=== PATIENT | male | born 1945 | race African-American/Black ===

== ENCOUNTER 2023-04-06 14:31 | Outpatient (AMB) | payer MEDICARE, MEDICAID, SELFPAY ==
[2023-04-06 14:55] VITALS: BP 122/64; PULSE 61; O2SAT 100; BMI 31.1
--- NOTE | 2023-04-06 14:55 | HO.NEPHOV_ITS ---
HPI HPI Comments History of Present Illness Details 77 yo gentleman with complex medical iss ues including CAD s/p CABG with bioprosthetic mitral valve replacement, dilated cardiomyopathy with EF of 30 to 35% s/p AICD in place, CKD 3 B, Graves' disease, COPD, previous MCA stroke with left-sided deficits, who had a prolonged hospitalization last year for bilateral angioplasty and left external iliac stent placement and right lower extremity fasciotomy with wound injury. He also had COVID and severe sepsis 2/2 UTI, and found to have COVID. He also required OR cystoscopy and catheter replacement, due to obstruction by blood clots on 08/15/22 & hematuria was resolved prior to discharge to rehab. He required multiple units of PRBC over the course of time. He was put on hospice as per the and was transferred out of the retirement. She is thinking of transitioning him back out of hospice. He recently has seen Dr. Henderson who found him to be profoundly anemic and sent him to the hospital for blood transfusion as per the . He has not had any renal function blood work done recently. He is eating better and has gained some weight. He has been having edema on the dorsum of both feet right more than left. He has a healing wound over the right lateral malleolus. He denies nausea, vomiting, fever, chills, diarrhea, shortness of breath, paroxysmal nocturnal dyspnea or orthopnea. He does not take any nonsteroidal anti- inflammatory use and is compliant with medications. He can barely pivot out to chair from his bed with support. His is doing the very best to help him improve out of his current clinical status. [facility] Medical History (Updated 04/07/23 @ 13:59 by Jonathan Isidro MD) MGUS (monoclonal gammopathy of unknown significance) Iron deficiency Anemia Hyperuricemia Hypertension CKD (chronic kidney disease), stage III Surgical History (Updated 04/06/23 @ 14:55 by Greta Vences MA) History of surgery on lower extremity Social History (Updated 04/06/23 @ 14:54 by Greta Vences MA) Alcohol intake: current Comment: Occasional Patient Tobacco Use Status: Former Tobacco user Vital Signs 04/06/23 14:55 Height 5 ft 4 in Weight 181 lb BMI 31.1 BP 122/64 Blood Pressure Location Rt brachial Position Sitting Pulse 61 Pulse Source Pulse Oximeter Pulse Oximetry (%) 100 Oxygen Delivery Method Room Air Physical Exam Vital Signs: Last Vital Signs Pulse 61 04/06/23 14:55 BP 122/64 04/06/23 14:55 Pulse Ox 100 04/06/23 14:55 Oxygen Delivery Method Room Air 04/06/23 14:55 BMI result Body Mass Index 31.1 Const General: no acute distress HEENT Head: Yes normocephalic Mouth: moist mucous membranes Eyes EOM: EOMs intact bilaterally Neck Neck: Yes supple Resp Auscultation: diminished lung sounds Cardio Rate: regular rate GI Palpation (GI): Soft to palpation Neuro General: moves all extremities Extrem General: Yes edema Assessment & Plan Assessment & Plan (1) CKD (chronic kidney disease), stage III: Code(s): N18.30 - Chronic kidney disease, stage 3 unspecified Qualifiers: Chronic kidney disease stage 3 subtype: stage 3b (GFR 30-44) Qualified Code(s): N18.32 - Chronic kidney disease, stage 3b (2) Anemia in chronic kidney disease: Code(s): N18.9 - Chronic kidney disease, unspecified; D63.1 - Anemia in chronic kidney disease Qualifiers: Chronic kidney disease stage: stage 3 (moderate) Chronic kidney disease stage 3 subtype: stage 3b (GFR 30-44) Qualified Code(s): N18.32 - Chronic kidney disease, stage 3b; D63.1 - Anemia in chronic kidney disease (3) Hypertension: Code(s): I10 - Essential (primary) hypertension Qualifiers: Hypertension type: primary hypertension Qualified Code(s): I10 - Essential (primary) hypertension (4) Hyperuricemia: Code(s): E79.0 - Hyperuricemia without signs of inflammatory arthritis and tophaceous disease Plan Carlos is known to have chronic kidney disease stage IIIB at baseline. He had multiple AKIs during his multiple prolonged hospitalizations last year. He has not had any recent blood work. He has not clinically in heart failure but has some edema on the dorsum of both feet right more than the left. Patient nor the knew about the dose and list of his current medications at the time of the office visit. She is made to contact me with the same. He has been getting recurrent transfusions and may be a candidate for Procrit injections. I ordered blood work to determine further strategies to maintain his kidney function, provide optimal diuresis and avoid more transfusions if possible. He needs to follow-up closely with the rest of his physicians if he is intending to come out of hospice program. All these have been discussed in extensive detail. I gave him the opportunity to ask questions which I answered to their satisfaction. Follow-up given. Orders: Orders Electrolytes 04/06/23 D63.1 - Anemia in chronic kidney disease, N18.30 - Chronic kidney disease, stage 3 unspecified, N18.9 - Chronic kidney disease, unspecified Blood Urea Nitrogen 04/06/23 D63.1 - Anemia in chronic kidney disease, N18.30 - Chronic kidney disease, stage 3 unspecified, N18.9 - Chronic kidney disease, unspecified Creatinine 04/06/23 D63.1 - Anemia in chronic kidney disease, N18.30 - Chronic kidney disease, stage 3 unspecified, N18.9 - Chronic kidney disease, unspecified IRON PROFILE 04/06/23 D63.1 - Anemia in chronic kidney disease, N18.30 - Chronic kidney disease, stage 3 unspecified, N18.9 - Chronic kidney disease, unspecified Ferritin 04/06/23 D63.1 - Anemia in chronic kidney disease, N18.30 - Chronic kidney disease, stage 3 unspecified, N18.9 - Chronic kidney disease, unspecified Calcium 04/06/23 D63.1 - Anemia in chronic kidney disease, N18.30 - Chronic kidney disease, stage 3 unspecified, N18.9 - Chronic kidney disease, unspecified Complete Blood Count Auto Diff 04/06/23 D63.1 - Anemia in chronic kidney disease, N18.30 - Chronic kidney disease, stage 3 unspecified, N18.9 - Chronic kidney disease, unspecified Coding Level of Care Code Est Pt Level 4 (68332) Diagnoses Stage 3b chronic kidney disease N18.32 Chronic kidney disease stage 3 subtype: stage 3b (GFR 30-44) Anemia in stage 3b chronic kidney disease N18.32; D63.1 Chronic kidney disease stage: stage 3 (moderate) Chronic kidney disease stage 3 subtype: stage 3b (GFR 30-44) Primary hypertension I10 Hypertension type: primary hypertension Hyperuricemia E79.0 Results Reviewed Nephrology Results: No Data to Display
== END 2023-04-06 15:45 | disposition home or self-care (01) ==
PROVIDERS: Visit Provider Internal Medicine Nephrology
DX: N18.32 Chronic kidney disease, stage 3b (principal); D63.1 Anemia in chronic kidney disease; I10 Essential (primary) hypertension; E79.0 Hyperuricemia without signs of inflammatory arthritis and tophaceous disease
CPT/HCPCS: 99214

== ENCOUNTER → 2023-04-06 14:31 | Outpatient (BNVA) | payer OTHER, MEDICAID, SELFPAY | PROVIDERS: Visit Provider Internal Medicine Nephrology | DX: I12.9 Hypertensive chronic kidney disease with stage 1 through stage 4 chronic kidney disease, or unspecified chronic kidney disease (principal); N18.32 Chronic kidney disease, stage 3b; D63.1 Anemia in chronic kidney disease; E79.0 Hyperuricemia without signs of inflammatory arthritis and tophaceous disease | CPT/HCPCS: 99212 ==

== ENCOUNTER 2023-05-11 14:03 | Outpatient (AMB) | payer MEDICARE, MEDICAID, SELFPAY ==
[2023-05-11 14:18] VITALS: BP 114/60
--- NOTE | 2023-05-11 14:18 | HO.NEPHOV ---
HPI HPI Comments History of Present Illness Details 77 yo gentleman with complex medical issues including CAD s/p CABG with bioprosthetic mitral valve replacement, dilated cardiomyopathy with EF of 30 to 35% s/p AICD in place, CKD 3 B, Graves' disease, COPD, previous MCA stroke with left-sided deficits, who had a prolonged hospitalization last year for bilateral angioplasty and left external iliac stent placement and right lower extremity fasciotomy with wound injury. He also had COVID and severe sepsis 2/2 UTI, and found to have COVID. He also required OR cystoscopy and catheter replacement, due to obstruction by blood clots on 08/15/22 & hematuria was resolved prior to discharge to rehab. He required multiple units of PRBC over the course of time. He was put on hospice as per the and [facility] She is thinking of transitioning him back out of hospice. He recently has seen Dr. Henderson who found him to be profoundly anemic and sent him to the hospital for blood transfusion as per the . He is eating better and has gained some weight. He has a healing wound over the right lateral malleolus. He denies nausea, vomiting, fever, chills, diarrhea, shortness of breath, paroxysmal nocturnal dyspnea or orthopnea. He does not take any nonsteroidal anti-inflammatory use and is compliant with medications. He can barely pivot out to chair from his bed with support. His is doing the very best to help him improve out of his current clinical status. [facility] Medical History (Updated 05/11/23 @ 14:56 by Jonathan Isidro MD) MGUS (monoclonal gammopathy of unknown significance) Iron deficiency Anemia Hyperuricemia Hypertension CKD (chronic kidney disease), stage III Surgical History History of surgery on lower extremity Social History Alcohol intake: current Comment: Occasional Patient Tobacco Use Status: Former Tobacco user Vital Signs 05/11/23 14:18 Height 5 ft 4 in BP 114/60 Blood Pressure Location Rt brachial Position Sitting Physical Exam Vital Signs: Last Vital Signs BP 114/60 05/11/23 14:18 Const General: comfortable and no acute distress Orientation/consciousness: patient oriented x3 HEENT Head: Yes normocephalic Mouth: Normal oral and palatal mucosa present Eyes EOM: EOMs intact bilaterally Neck Neck: Yes supple Resp Auscultation: clear to auscultation bilaterally Cardio Jugular venous distension: no JVD Rate: regular rate GI Palpation (GI): Soft to palpation Auscultation: normal bowel sounds General: Yes no CVA tenderness Back/Spine/Pelvis Back: no CVA tenderness Skin General skin exam: no rashes or lesions noted Neuro General: patient oriented x3 and moves all extremities Extrem General: Yes no pedal edema Assessment & Plan Assessment & Plan (1) CKD (chronic kidney disease), stage III: Code(s): N18.30 - Chronic kidney disease, stage 3 unspecified Qualifiers: Chronic kidney disease stage 3 subtype: stage 3b (GFR 30-44) Qualified Code(s): N18.32 - Chronic kidney disease, stage 3b (2) Anemia in chronic kidney disease: Code(s): N18.9 - Chronic kidney disease, unspecified; D63.1 - Anemia in chronic kidney disease Qualifiers: Chronic kidney disease stage: stage 3 (moderate) Chronic kidney disease stage 3 subtype: stage 3b (GFR 30-44) Qualified Code(s): N18.32 - Chronic kidney disease, stage 3b; D63.1 - Anemia in chronic kidney disease (3) Hypertension: Code(s): I10 - Essential (primary) hypertension Qualifiers: Hypertension type: primary hypertension Qualified Code(s): I10 - Essential (primary) hypertension (4) Hyperuricemia: Code(s): E79.0 - Hyperuricemia without signs of inflammatory arthritis and tophaceous disease (5) Iron deficiency: Code(s): E61.1 - Iron deficiency Plan Carlos is known to have chronic kidney disease stage IIIB at baseline. He had multiple AKIs during his multiple prolonged hospitalizations last year. His renal function is stable at baseline now. He has not clinically in heart failure. He had been getting recurrent transfusions. His Hb has improved to 9.0, I Increased his iron tablets to three times a day. He may be a candidate for Procrit injections in the future. I ordered blood work to determine further strategies to maintain his kidney function, provide optimal diuresis and avoid more transfusions if possible. He needs to follow-up closely with the rest of his physicians if he is intending to come out of hospice program. All these have been discussed in extensive detail. I gave him the opportunity to ask questions which I answered to their satisfaction. Follow-up given. Orders: Orders Electrolytes Today D63.1 - Anemia in chronic kidney disease, E61.1 - Iron deficiency, E79.0 - Hyperuricemia without signs of inflammatory arthritis and tophaceous disease, I10 - Essential (primary) hypertension, N18.30 - Chronic kidney disease, stage 3 unspecified, N18.9 - Chronic kidney disease, unspecified Complete Blood Count Auto Diff Today D63.1 - Anemia in chronic kidney disease, E61.1 - Iron deficiency, E79.0 - Hyperuricemia without signs of inflammatory arthritis and tophaceous disease, I10 - Essential (primary) hypertension, N18.30 - Chronic kidney disease, stage 3 unspecified, N18.9 - Chronic kidney disease, unspecified Creatinine Today D63.1 - Anemia in chronic kidney disease, E61.1 - Iron deficiency, E79.0 - Hyperuricemia without signs of inflammatory arthritis and tophaceous disease, I10 - Essential (primary) hypertension, N18.30 - Chronic kidney disease, stage 3 unspecified, N18.9 - Chronic kidney disease, unspecified Blood Urea Nitrogen Today D63.1 - Anemia in chronic kidney disease, E61.1 - Iron deficiency, E79.0 - Hyperuricemia without signs of inflammatory arthritis and tophaceous disease, I10 - Essential (primary) hypertension, N18.30 - Chronic kidney disease, stage 3 unspecified, N18.9 - Chronic kidney disease, unspecified Coding Level of Care Code Est Pt Level 4 (43754) Diagnoses Stage 3b chronic kidney disease N18.32 Chronic kidney disease stage 3 subtype: stage 3b (GFR 30-44) Anemia in stage 3b chronic kidney disease N18.32; D63.1 Chronic kidney disease stage: stage 3 (moderate) Chronic kidney disease stage 3 subtype: stage 3b (GFR 30-44) Primary hypertension I10 Hypertension type: primary hypertension Hyperuricemia E79.0 Iron deficiency E61.1 Results Reviewed Nephrology Results: No Data to Display
== END 2023-05-11 15:04 | disposition home or self-care (01) ==
PROVIDERS: Visit Provider Internal Medicine Nephrology
DX: N18.32 Chronic kidney disease, stage 3b (principal); D63.1 Anemia in chronic kidney disease; I10 Essential (primary) hypertension; E79.0 Hyperuricemia without signs of inflammatory arthritis and tophaceous disease; E61.1 Iron deficiency
CPT/HCPCS: 99214

== ENCOUNTER → 2023-05-11 14:03 | Outpatient (BNVA) | payer OTHER, MEDICAID, SELFPAY | PROVIDERS: Visit Provider Internal Medicine Nephrology | DX: I11.0 Hypertensive heart disease with heart failure (principal); N18.32 Chronic kidney disease, stage 3b; D63.1 Anemia in chronic kidney disease; E79.0 Hyperuricemia without signs of inflammatory arthritis and tophaceous disease; E61.1 Iron deficiency | CPT/HCPCS: 99212 ==

== ENCOUNTER 2023-08-17 14:07 | Outpatient (AMB) | payer OTHER, MEDICAID, SELFPAY ==
--- NOTE | 2023-08-17 14:50 | HO.NEPHOV_ITS ---
Vital Signs 08/17/23 14:51 Height 5 ft 4 in BP 110/70 Blood Pressure Location Lt brachial Position Sitting Intake Visit Reasons: 3 mon follow up/ Conf Nurses Supervisor Required: No Accompanied by: Spouse Allergies No Known Allergies Allergy (Verified 08/17/23 14:53) HPI Comments Details: 78 yo gentleman with complex medical issues including CAD s/p CABG with bioprosthetic mitral valve replacement, dilated cardiomyopathy with EF of 30 to 35% s/p AICD in place, CKD 3 B, Graves' disease, COPD, previous MCA stroke with left-sided deficits, who had a prolonged hospitalization last year for bilateral angioplasty and left external iliac stent placement and right lower extremity fasciotomy with wound injury. He also had COVID and severe sepsis 2/2 UTI, and found to have COVID. He also required OR cystoscopy and catheter replacement, due to obstruction by blood clots on 08/15/22 & hematuria was resolved prior to discharge to rehab. He required multiple units of PRBC over the course of time. He was put on hospice as per the and was transferred out of the shelter. She has transitioned him out of hospice. He is eating better and has gained some weight. The wound over the right lateral malleolus has healed. He denies nausea, vomiting, fever, chills, diarrhea, shortness of breath, paroxysmal nocturnal dyspnea or orthopnea. He does not take any nonsteroidal anti-inflammatory use and is compliant with medications. He can pivot out to chair from his bed with support & takes a few steps using walker. His is doing the very best to help him improve out of his current clinical status. He is looking for help to get some physical therapy [facility] Medical History (Updated 05/11/23 @ 14:56 by Jonathan Isidro MD) MGUS (monoclonal gammopathy of unknown significance) Iron deficiency Anemia Hyperuricemia Hypertension CKD (chronic kidney disease), stage III Surgical History History of surgery on lower extremity Social History Alcohol intake: current Comment: Occasional Patient Tobacco Use Status: Former Tobacco user Review of Systems Const All systems reviewed & are unremarkable except as noted in HPI and below Physical Exam Vital Signs: Last Vital Signs BP 110/70 08/17/23 14:51 Const General: comfortable and no acute distress Orientation/consciousness: patient oriented x3 HEENT Head: Yes normocephalic Mouth: Normal oral and palatal mucosa present Eyes EOM: EOMs intact bilaterally Neck Neck: Yes supple Resp Auscultation: clear to auscultation bilaterally Cardio Jugular venous distension: no JVD Rate: regular rate GI Palpation (GI): Soft to palpation Auscultation: normal bowel sounds General: Yes no CVA tenderness Back/Spine/Pelvis Back: no CVA tenderness Skin General skin exam: no rashes or lesions noted Neuro General: patient oriented x3 and moves all extremities Results Reviewed Nephrology Results: No Data to Display Assessment & Plan Assessment & Plan (1) Iron deficiency: Code(s): E61.1 - Iron deficiency Category: Medical (2) Hyperuricemia: Code(s): E79.0 - Hyperuricemia without signs of inflammatory arthritis and tophaceous disease Category: Medical (3) Hypertension: Code(s): I10 - Essential (primary) hypertension Category: Medical Qualifiers: Hypertension type: primary hypertension Qualified Code(s): I10 - Essential (primary) hypertension (4) Anemia in chronic kidney disease: Code(s): N18.9 - Chronic kidney disease, unspecified; D63.1 - Anemia in chronic kidney disease Category: Medical Qualifiers: Chronic kidney disease stage: stage 3 (moderate) Chronic kidney disease stage 3 subtype: stage 3b (GFR 30-44) Qualified Code(s): N18.32 - Chronic kidney disease, stage 3b; D63.1 - Anemia in chronic kidney disease (5) CKD (chronic kidney disease), stage III: Code(s): N18.30 - Chronic kidney disease, stage 3 unspecified Category: Medical Qualifiers: Chronic kidney disease stage 3 subtype: stage 3b (GFR 30-44) Qualified Code(s): N18.32 - Chronic kidney disease, stage 3b Jaquelin Gonzalez is known to have chronic kidney disease stage IIIB at baseline. He had multiple AKIs during his multiple prolonged hospitalizations . His renal function had been stable at baseline now. He can continue his iron tablets three times a day. He may be a candidate for Procrit injections in the future. I ordered blood work to determine further strategies to maintain his kidney function, provide optimal diuresis and avoid more transfusions if possible. He needs agressive physical therapy. All these have been discussed in extensive detail. I gave him the opportunity to ask questions which I answered to their satisfaction. Follow-up given Orders: Orders Blood Urea Nitrogen Today D63.1 - Anemia in chronic kidney disease, E61.1 - Iron deficiency, E79.0 - Hyperuricemia without signs of inflammatory arthritis and tophaceous disease, I10 - Essential (primary) hypertension, N18.32 - Chronic kidney disease, stage 3b Calcium Today D63.1 - Anemia in chronic kidney disease, E61.1 - Iron deficiency, E79.0 - Hyperuricemia without signs of inflammatory arthritis and tophaceous disease, I10 - Essential (primary) hypertension, N18.32 - Chronic kidney disease, stage 3b Phosphorus Today D63.1 - Anemia in chronic kidney disease, E61.1 - Iron deficiency, E79.0 - Hyperuricemia without signs of inflammatory arthritis and tophaceous disease, I10 - Essential (primary) hypertension, N18.32 - Chronic kidney disease, stage 3b Ferritin Today D63.1 - Anemia in chronic kidney disease, E61.1 - Iron deficiency, E79.0 - Hyperuricemia without signs of inflammatory arthritis and tophaceous disease, I10 - Essential (primary) hypertension, N18.32 - Chronic kidney disease, stage 3b IRON PROFILE Today D63.1 - Anemia in chronic kidney disease, E61.1 - Iron deficiency, E79.0 - Hyperuricemia without signs of inflammatory arthritis and tophaceous disease, I10 - Essential (primary) hypertension, N18.32 - Chronic kidney disease, stage 3b Creatinine Today D63.1 - Anemia in chronic kidney disease, E61.1 - Iron deficiency, E79.0 - Hyperuricemia without signs of inflammatory arthritis and tophaceous disease, I10 - Essential (primary) hypertension, N18.32 - Chronic kidney disease, stage 3b Electrolytes Today D63.1 - Anemia in chronic kidney disease, E61.1 - Iron deficiency, E79.0 - Hyperuricemia without signs of inflammatory arthritis and tophaceous disease, I10 - Essential (primary) hypertension, N18.32 - Chronic kidney disease, stage 3b Parathyroid Hormone Intact Today D63.1 - Anemia in chronic kidney disease, E61.1 - Iron deficiency, E79.0 - Hyperuricemia without signs of inflammatory arthritis and tophaceous disease, I10 - Essential (primary) hypertension, N18.32 - Chronic kidney disease, stage 3b Complete Blood Count Auto Diff Today D63.1 - Anemia in chronic kidney disease, E61.1 - Iron deficiency, E79.0 - Hyperuricemia without signs of inflammatory arthritis and tophaceous disease, I10 - Essential (primary) hypertension, N18.32 - Chronic kidney disease, stage 3b Uric Acid Today E79.0 - Hyperuricemia without signs of inflammatory arthritis and tophaceous disease Coding Level of Care Code Est Pt Level 4 (25883) Diagnoses Iron deficiency E61.1 Hyperuricemia E79.0 Primary hypertension I10 Hypertension type: primary hypertension Anemia in stage 3b chronic kidney disease N18.32; D63.1 Chronic kidney disease stage: stage 3 (moderate) Chronic kidney disease stage 3 subtype: stage 3b (GFR 30-44) Stage 3b chronic kidney disease N18.32 Chronic kidney disease stage 3 subtype: stage 3b (GFR 30-44)
[2023-08-17 14:51] VITALS: BP 110/70
== END 2023-08-17 15:55 | disposition home or self-care (01) ==
PROVIDERS: PCP Internal Medicine; Visit Provider Internal Medicine Nephrology
DX: E61.1 Iron deficiency (principal); E79.0 Hyperuricemia without signs of inflammatory arthritis and tophaceous disease; I10 Essential (primary) hypertension; N18.32 Chronic kidney disease, stage 3b; D63.1 Anemia in chronic kidney disease
CPT/HCPCS: 99214

== ENCOUNTER → 2023-08-17 14:07 | Outpatient (BNVA) | payer MEDICARE, MEDICAID, SELFPAY | PROVIDERS: Visit Provider Internal Medicine Nephrology ==

== ENCOUNTER 2023-08-17 15:39 | Outpatient (REF) | payer OTHER, SELFPAY | END 2023-08-17 15:40 | disposition home or self-care (01) | LOC: HO.HKASLDS 15:39 | PROVIDERS: Visit Provider Internal Medicine Nephrology | DX: E61.1 Iron deficiency (principal); E79.0 Hyperuricemia without signs of inflammatory arthritis and tophaceous disease; I12.9 Hypertensive chronic kidney disease with stage 1 through stage 4 chronic kidney disease, or unspecified chronic kidney disease; N18.32 Chronic kidney disease, stage 3b; D63.1 Anemia in chronic kidney disease | CPT/HCPCS: 99212 ==

== ENCOUNTER 2023-12-14 13:27 | Outpatient (AMB) | payer OTHER, MEDICAID, SELFPAY ==
--- NOTE | 2023-12-14 13:39 | HO.NEPHOV ---
Vital Signs 12/14/23 13:55 Height 5 ft 4 in Weight 157 lb BMI 26.9 BP 122/70 Blood Pressure Location Rt brachial Position Sitting Intake Visit Reasons: Oct follow up-Conf Buffer Nickel Required: No Accompanied by: Spouse Allergies No Known Allergies Allergy (Verified 12/14/23 13:57) HPI Comments Details: 78 yo gentleman with complex medical issues including CAD s/p CABG with bioprosthetic mitral valve replacement, dilated cardiomyopathy with EF of 30 to 35% s/p AICD in place, CKD 3 B, Graves' disease, COPD, previous MCA stroke with left-sided deficits, who had a prolonged hospitalization 2022 for bilateral angioplasty and left external iliac stent placement and right lower extremity fasciotomy with wound injury. He also had COVID and severe sepsis 2/2 UTI, and found to have COVID. He also required OR cystoscopy and catheter replacement at that time , due to obstruction by blood clots on 08/15/22 & hematuria was resolved prior to discharge to rehab. He required multiple units of PRBC over the course of time. He is eating better and has gained some weight. The wound over the right lateral malleolus has healed. He denies nausea, vomiting, fever, chills, diarrhea, shortness of breath, paroxysmal nocturnal dyspnea or orthopnea. He does not take any nonsteroidal anti-inflammatory use and is compliant with medications. His is doing the very best to help him improve out of his current clinical status. [facility] Medical History (Updated 05/11/23 @ 14:56 by Jonathan Isidro MD) MGUS (monoclonal gammopathy of unknown significance) Iron deficiency Anemia Hyperuricemia Hypertension CKD (chronic kidney disease), stage III Surgical History History of surgery on lower extremity Social History Alcohol intake: current Comment: Occasional Patient Tobacco Use Status: Former Tobacco user Review of Systems Const All systems reviewed & are unremarkable except as noted in HPI and below Physical Exam Vital Signs: Last Vital Signs BP 122/70 12/14/23 13:55 BMI result Body Mass Index 26.9 Const General: comfortable and no acute distress Orientation/consciousness: patient oriented x3 HEENT Head: Yes normocephalic Mouth: Normal oral and palatal mucosa present Eyes EOM: EOMs intact bilaterally Neck Neck: Yes supple Resp Auscultation: clear to auscultation bilaterally Cardio Jugular venous distension: no JVD Rate: regular rate GI Palpation (GI): Soft to palpation Auscultation: normal bowel sounds General: Yes no CVA tenderness Back/Spine/Pelvis Back: no CVA tenderness Skin General skin exam: no rashes or lesions noted Neuro General: patient oriented x3 and moves all extremities Results Reviewed Nephrology Results: No Data to Display Assessment & Plan Assessment & Plan (1) CKD (chronic kidney disease), stage III: Code(s): N18.30 - Chronic kidney disease, stage 3 unspecified Category: Medical Qualifiers: Chronic kidney disease stage 3 subtype: stage 3b (GFR 30-44) Qualified Code(s): N18.32 - Chronic kidney disease, stage 3b (2) Anemia in chronic kidney disease: Code(s): N18.9 - Chronic kidney disease, unspecified; D63.1 - Anemia in chronic kidney disease Category: Medical Qualifiers: Chronic kidney disease stage: stage 3 (moderate) Chronic kidney disease stage 3 subtype: stage 3b (GFR 30-44) Qualified Code(s): N18.32 - Chronic kidney disease, stage 3b; D63.1 - Anemia in chronic kidney disease (3) Hypertension: Code(s): I10 - Essential (primary) hypertension Category: Medical Qualifiers: Hypertension type: primary hypertension Qualified Code(s): I10 - Essential (primary) hypertension (4) Hyperuricemia: Code(s): E79.0 - Hyperuricemia without signs of inflammatory arthritis and tophaceous disease Category: Medical (5) Iron deficiency: Code(s): E61.1 - Iron deficiency Category: Medical Plan Carlos is known to have chronic kidney disease stage IIIB at baseline. He had multiple AKIs during his multiple prolonged hospitalizations . His renal function had been stable at baseline now. He can continue his iron tablets three times a day. He may be a candidate for Procrit injections in the future. He needs agressive physical therapy. All these have been discussed in extensive detail. I gave him the opportunity to ask questions which I answered to their satisfaction. Follow-up given Orders: Orders Blood Urea Nitrogen Today D63.1 - Anemia in chronic kidney disease, E61.1 - Iron deficiency, E79.0 - Hyperuricemia without signs of inflammatory arthritis and tophaceous disease, I10 - Essential (primary) hypertension, N18.32 - Chronic kidney disease, stage 3b Electrolytes Today D63.1 - Anemia in chronic kidney disease, E61.1 - Iron deficiency, E79.0 - Hyperuricemia without signs of inflammatory arthritis and tophaceous disease, I10 - Essential (primary) hypertension, N18.32 - Chronic kidney disease, stage 3b Complete Blood Count no Diff Today D63.1 - Anemia in chronic kidney disease, E61.1 - Iron deficiency, E79.0 - Hyperuricemia without signs of inflammatory arthritis and tophaceous disease, I10 - Essential (primary) hypertension, N18.32 - Chronic kidney disease, stage 3b Calcium Today D63.1 - Anemia in chronic kidney disease, E61.1 - Iron deficiency, E79.0 - Hyperuricemia without signs of inflammatory arthritis and tophaceous disease, I10 - Essential (primary) hypertension, N18.32 - Chronic kidney disease, stage 3b Creatinine Today D63.1 - Anemia in chronic kidney disease, E61.1 - Iron deficiency, E79.0 - Hyperuricemia without signs of inflammatory arthritis and tophaceous disease, I10 - Essential (primary) hypertension, N18.32 - Chronic kidney disease, stage 3b Ferritin Today D63.1 - Anemia in chronic kidney disease, E61.1 - Iron deficiency, E79.0 - Hyperuricemia without signs of inflammatory arthritis and tophaceous disease, I10 - Essential (primary) hypertension, N18.32 - Chronic kidney disease, stage 3b IRON PROFILE Today D63.1 - Anemia in chronic kidney disease, E61.1 - Iron deficiency, E79.0 - Hyperuricemia without signs of inflammatory arthritis and tophaceous disease, I10 - Essential (primary) hypertension, N18.32 - Chronic kidney disease, stage 3b Coding Level of Care Code Est Pt Level 4 (83553) Diagnoses Stage 3b chronic kidney disease N18.32 Chronic kidney disease stage 3 subtype: stage 3b (GFR 30-44) Anemia in stage 3b chronic kidney disease N18.32; D63.1 Chronic kidney disease stage: stage 3 (moderate) Chronic kidney disease stage 3 subtype: stage 3b (GFR 30-44) Primary hypertension I10 Hypertension type: primary hypertension Hyperuricemia E79.0 Iron deficiency E61.1
[2023-12-14 13:55] VITALS: BP 122/70; BMI 26.9
== END 2023-12-14 14:36 | disposition home or self-care (01) ==
PROVIDERS: PCP Internal Medicine; Visit Provider Internal Medicine Nephrology
DX: N18.32 Chronic kidney disease, stage 3b (principal); D63.1 Anemia in chronic kidney disease; I10 Essential (primary) hypertension; E79.0 Hyperuricemia without signs of inflammatory arthritis and tophaceous disease; E61.1 Iron deficiency
CPT/HCPCS: 99214

== ENCOUNTER → 2023-12-14 13:27 | Outpatient (BNVA) | payer MEDICARE, MEDICAID, SELFPAY | PROVIDERS: PCP Internal Medicine; Visit Provider Internal Medicine Nephrology ==

== ENCOUNTER 2023-12-14 14:17 | Outpatient (REF) | payer OTHER, SELFPAY ==
[2023-12-14 18:15] LABS: Hemoglobin 11.3 g/dl (14.0-18.0); Mean Corpuscular HGB Conc 32.3 g/dl (31.0-36.0); Mean Corpuscular Hemoglobin 33.6 pg (27.0-33.0); Mean Corpuscular Volume 104.2 fL (80.0-98.0); Mean Platelet Volume 11.4 fL (9.4-12.4); Platelet Count 194 X10*3/uL (160-400); Red Blood Count 3.36 X10*6/uL (4.60-5.80); White Blood Count 5.2 X10*3/uL (4.8-10.8)
[2023-12-14 18:23] LABS: Anion Gap 10 (12-20); Blood Urea Nitrogen 20 mg/dL (9-16); Calcium 10.5 mg/dL (8.4-10.2); Carbon Dioxide 29 mmol/L (22-29); Chloride 108 mmol/L (96-108); Estimated Glomerular Filt Rate 36; Iron 32 mcg/dL (45-160); Percent Iron Saturation 13 % (15-50); Phosphorus 2.9 mg/dL (2.7-4.5); Potassium 4.3 mmol/L (3.3-5.1); Sodium 143 mmol/L (135-145); Total Iron Binding Capacity 238 mcg/dL (228-428); Unsaturated Iron Binding 206 ug/dL; Uric Acid 8.4 mg/dL (3.4-7.0)
[2023-12-14 18:42] LABS: Ferritin 88 ng/mL (20-250)
[2023-12-15 05:58] LABS: Parathyroid Hormone Intact 110.1 pg/mL (8.7-77.1)
== END 2023-12-14 14:18 | disposition home or self-care (01) ==
LOC: HO.HKASLDS 14:17
PROVIDERS: Visit Provider Internal Medicine Nephrology
DX: I12.9 Hypertensive chronic kidney disease with stage 1 through stage 4 chronic kidney disease, or unspecified chronic kidney disease (principal); E61.1 Iron deficiency; E79.0 Hyperuricemia without signs of inflammatory arthritis and tophaceous disease; D63.1 Anemia in chronic kidney disease; N18.32 Chronic kidney disease, stage 3b
CPT/HCPCS: 36415; 80051; 82310; 82565; 82728; 83540; 83970; 84100; 84520; 84550; 85027; 99212

== ENCOUNTER 2024-06-27 13:20 | Outpatient (AMB) | payer OTHER, SELFPAY ==
--- NOTE | 2024-06-27 13:37 | HO.NEPHOV ---
Vital Signs 06/27/24 13:41 Height 5 ft 4 in Weight 157 lb BMI 26.9 BP 122/70 Blood Pressure Location Rt brachial Position Sitting Pulse 97 Pulse Source Pulse Oximeter Pulse Oximetry (%) 49 L Oxygen Delivery Method Room Air Intake Visit Reasons: Follow-up Wound Treatment Rn Required: No Accompanied by: Spouse Allergies No Known Allergies Allergy (Verified 06/27/24 13:40) HPI Comments Details: 79 yo gentleman with complex medical issues including CAD s/p CABG with bioprosthetic mitral valve replacement, dilated cardiomyopathy with EF of 30 to 35% s/p AICD in place, CKD 3 B, Graves' disease, COPD, previous MCA stroke with left-sided deficits, who had a prolonged hospitalization 2022 for bilateral angioplasty and left external iliac stent placement and right lower extremity fasciotomy with wound injury. He also had COVID and severe sepsis 2/2 UTI, and found to have COVID. He also required OR cystoscopy and catheter replacement at that time , due to obstruction by blood clots on 08/15/22 & hematuria was resolved prior to discharge to rehab. He required multiple units of PRBC over the course of time. He recently was hospitalized with SOB. He was diagnosed with UTI and was treated with antibiotics. He also had GLO at that time. He continues to have shortness of breath and edema. He has poor appetite. He denies nausea, vomiting, fever, chills, diarrhea. He does not take any nonsteroidal anti-inflammatory use and is compliant with medications. His is doing the very best to help him improve out of his current clinical status. [facility] Medical History (Updated 06/28/24 @ 15:13 by Jonathna Isidro MD) MGUS (monoclonal gammopathy of unknown significance) Iron deficiency Anemia Hyperuricemia Hypertension CKD (chronic kidney disease), stage III Surgical History History of surgery on lower extremity Social History Alcohol intake: current Comment: Occasional Patient Tobacco Use Status: Former Tobacco user Review of Systems Const All systems reviewed & are unremarkable except as noted in HPI and below Physical Exam Vital Signs: Last Vital Signs Pulse 97 06/27/24 13:41 BP 122/70 06/27/24 13:41 Pulse Ox 49 L 06/27/24 13:41 Oxygen Delivery Method Room Air 06/27/24 13:41 BMI result Body Mass Index 26.9 Const General: no acute distress Orientation/consciousness: patient oriented x3 Eyes EOM: EOMs intact bilaterally Neck Neck: Yes supple Resp Auscultation: diminished lung sounds Cardio Rate: regular rate GI Palpation (GI): Soft to palpation Neuro General: patient oriented x3 Results Reviewed Nephrology Results: Hgb 11.3 g/dl (14.0-18.0) L 12/14/23 WBC 5.2 X10*3/uL (4.8-10.8) 12/14/23 Plt Count 194 X10*3/uL (160-400) 12/14/23 Sodium 143 mmol/L (135-145) 12/14/23 Potassium 4.3 mmol/L (3.3-5.1) 12/14/23 Chloride 108 mmol/L (96-108) 12/14/23 Carbon Dioxide 29 mmol/L (22-29) 12/14/23 BUN 20 mg/dL (9-16) H 12/14/23 Creatinine 1.85 mg/dL (0.5-1.4) H 12/14/23 Calcium 10.5 mg/dL (8.4-10.2) H 12/14/23 Phosphorus 2.9 mg/dL (2.7-4.5) 12/14/23 PTH Intact 110.1 pg/mL (8.7-77.1) H 12/14/23 Assessment & Plan Assessment & Plan (1) Acute kidney injury superimposed on chronic kidney disease: Code(s): N17.9 - Acute kidney failure, unspecified; N18.9 - Chronic kidney disease, unspecified Category: Medical (2) Hypertension: Code(s): I10 - Essential (primary) hypertension Category: Medical Qualifiers: Hypertension type: primary hypertension Qualified Code(s): I10 - Essential (primary) hypertension (3) Hyperuricemia: Code(s): E79.0 - Hyperuricemia without signs of inflammatory arthritis and tophaceous disease Category: Medical (4) Anemia in chronic kidney disease: Code(s): N18.9 - Chronic kidney disease, unspecified; D63.1 - Anemia in chronic kidney disease Category: Medical Qualifiers: Chronic kidney disease stage: stage 3 (moderate) Chronic kidney disease stage 3 subtype: stage 3b (GFR 30-44) Qualified Code(s): N18.32 - Chronic kidney disease, stage 3b; D63.1 - Anemia in chronic kidney disease (5) CKD (chronic kidney disease), stage III: Code(s): N18.30 - Chronic kidney disease, stage 3 unspecified Category: Medical Qualifiers: Chronic kidney disease stage 3 subtype: stage 3b (GFR 30-44) Qualified Code(s): N18.32 - Chronic kidney disease, stage 3b Jaquelin Gonzalez is known to have chronic kidney disease stage IIIB at baseline. He had multiple AKIs during his multiple prolonged hospitalizations . Recently he had GLO due to HF exacerbation as well as possible UTI. I held his Entresto and kept him on lasix. He can continue his iron tablets three times a day. He may be a candidate for Procrit injections in the future. He needs agressive physical therapy. All these have been discussed in extensive detail. I gave him the opportunity to ask questions which I answered to their satisfaction. Follow-up labs ordered and F/U given Coding Level of Care Code Est Pt Level 4 (06657) Diagnoses Acute kidney injury superimposed on chronic kidney disease N17.9; N18.9 Primary hypertension I10 Hypertension type: primary hypertension Hyperuricemia E79.0 Anemia in stage 3b chronic kidney disease N18.32; D63.1 Chronic kidney disease stage: stage 3 (moderate) Chronic kidney disease stage 3 subtype: stage 3b (GFR 30-44) Stage 3b chronic kidney disease N18.32 Chronic kidney disease stage 3 subtype: stage 3b (GFR 30-44)
[2024-06-27 13:41] VITALS: BP 122/70; PULSE 97; O2SAT 49; BMI 26.9
--- OUTSIDE RECORDS SUMMARY | 2024-06-27 15:46 | XMS_ITS | Clinical Summary ---
Author Organization [facility] Address [address] [place] [address] Care Team Providers Care Cardroom Manager Name Role Phone Gustabo Dupree MD Primary Care Provider [phone] Allergies No known active allergies Medications Medication Sig Dispensed Refills Start Date End Date Status aspirin EC 81 MG tablet Take 81 mg by mouth daily. 0 Active carvedilol (COREG) 12.5 MG tablet Take 12.5 mg by mouth 2 (two) times a day with meals. 0 Active warfarin (COUMADIN) 2.5 MG tablet Take 2.5 mg by mouth daily. 0 Active digoxin (LANOXIN) 125 MCG tablet Take 125 mcg by mouth daily. 0 Active sacubitril-valsartan (ENTRESTO) 49-51 MG per tablet Take 1 tablet by mouth 2 (two) times a day. 0 Active spironolactone (ALDACTONE) tablet 25 mg Take 25 mg by mouth daily. 0 Active torsemide (DEMADEX) 20 MG tablet Take 20 mg by mouth daily. 0 Active warfarin (COUMADIN) 1 MG tablet Take 1 mg by mouth daily. 0 Active sacubitril-valsartan (ENTRESTO) 97-103 MG TABS per tablet Take 1 tablet by mouth 2 (two) times a day. 0 Active Active Problems No known active problems Family History Medical History Relation Name Comments Cancer Sister Eli Relation Name Status Comments Sister Eli Social History Tobacco Use Types Packs/Day Years Used Date Smoking Tobacco: Former Cigarettes 1 30 Smokeless Tobacco: Never Alcohol Use Standard Drinks/Week Comments No 0 (1 standard drink = 0.6 oz pur e alcohol) Sex and Gender Information Value Date Recorded Sex Assigned at Not on file Gender Identity Not on file Sexual Orientation Not on file Job Start Date Occupation Industry Not on file Not on file Not on file Last Filed Vital Signs Vital Sign Reading Time Taken Comments Blood Pressure 108/55 12/30/2018 2:46 PM EDT Pulse 65 12/30/2018 2:46 PM EDT Temperature 37.3 ??C (99.2 ??F) 12/30/2018 2:46 PM ED T Respiratory Rate - - Oxygen Saturation 98% 08/31/2018 10:28 AM EDT Inhaled Oxygen Concentration - - Weight 87.5 kg (193 lb) 12/30/2018 2:46 PM EDT Height 162.6 cm (5' 4 ) 12/30/2018 2:46 PM EDT Body Mass Index 33.13 12/30/2018 2:46 PM EDT Plan of Treatment Health Maintenance Due Date Last Done Comments Hepatitis C Screening 1945 COVID-19 Vaccine (#1) 1945 Depression Screening 1957 Preventative Health Evaluation 1963 DTap / Tdap / Td (1 - Tdap) 1964 Shingrix-Zoster Vaccine (1 of 2) 1995 Fall Risk Assessment 2010 Pneumococcal Vaccine (1 of 1 - PCV) 2010 RSV Adult > 60+ Yrs or Pregn ant (1 - 1-dose 75+ series) 2020 Influenza Vaccine (#1) 2023 Hepatitis B Vaccines Aged Out No long er eligible based on patient's age to complete this topic RSV Ped < 20 months Aged Out No longe r eligible based on patient's age to complete this topic Care Teams Cardroom Manager Relationship Specialty Start Date End Date Gustabo Dupree MD [address] [place] [address] PCP - General Hematology and Oncology 08/31/18
--- OUTSIDE RECORDS SUMMARY | 2024-06-27 15:46 | XMS_ITS | Clinical Summary ---
Author Organization [facility] Address [address] [facility] [address] [place] [address] Phone Care Team Providers Care Chemical Blender Name Role Phone Arian Arcos MD Primary Care Provider [phone] Allergies No known active allergies Medications atorvastatin (LIPITOR) 20 MG tablet Take 1 tablet by mouth at bed time 1 Active digoxin (LANOXIN) 125 MCG tablet Take 1 tablet by mouth 1 (one) time each day 1 Active methIMAzole (TAPAZOLE) 5 MG tablet Take 1 tablet by mouth 1 (one) time each day 1 Active aspirin (ST RONI) 81 MG EC tablet Take 81 mg by mouth 1 (one) time each day Active sacubitril-vals timothy (Entresto) 49-51 MG per tablet Take 1 tablet by mouth 2 (two) times a day Active spironolactone (ALDACTONE) 25 MG tablet Take 12.5 mg by mouth 1 (one) time each day Active Calcium Carbonate-Vitam in D (CALTRATE 600+D PO) Take 1 tablet by mouth 1 (one) time each day Active ferrous sulfate 325 (65 Fe) MG tablet Take 325 mg by mouth 1 (one) time each day with breakfast Active torsemide (DEMADEX) 20 MG tablet Take 40 mg by mouth 1 (one) time each day 2 Active Farxiga 10 MG tablet Take 10 mg by mouth 1 (one) time each day 30 tablet 11 2 Active apixaban (Eliquis) 5 MG tablet Take 5 mg by mouth in the morning and 5 mg in the evening. Active pantoprazole (PROTONIX) 40 MG EC tablet Take 40 mg by mouth 1 (one) time each day before breakfast Do not crush, chew, or split. Active carvedilol (Coreg) 6.25 MG tablet Take 1 tablet (6.25 mg total) by mouth in the morning and 1 tablet (6.25 mg total) in the evening. Take with meals. 60 tablet 11 3 Active Hospital, Clinic, or Other Facility Administered Medication Ordered Dose Route Frequency Start Date End Date Status Epoetin Rakan-epbx solution 20,000 UnitsIndications:Anemia in chronic kidney disease 98565 Units IJ Every 14 days 04/18/2020 Active Active Problems Problem Noted Date Diagnosed Date Acquired coagulation disorder 05/05/2023 H/O: cardiac pacemaker in situ 05/05/2023 Anticoagulant therapy 05/05/2023 History of repair of mitral valve 05/05/2023 Ischemic cardiomyopathy 12/10/2022 Alcoholic cirrhosis of liver with ascites 2022 Atrial fibrillation 11/06/2022 Stage 3b chronic kidney disease 05/25/2022 Hypertension 12/05/2020 Hypertensive heart and renal disease with (congestive) heart failure 06/18/2020 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 He has MGUS light chain disease now and is being monitored by manufacturing quality engineer. His renal functions had been stable, his blood pressure is currently at goal. He never had renal biopsy. He should be on a low sodium diet. I encouraged weight loss and regular exercise . Hypertensive disorder 11/23/2012 Resolved Problems Problem Noted Date Diagnosed Date Resolved Date Cardiac arrest 04/24/2021 04/24/2021 Diverticular disease 04/24/2021 022 Ex-smoker 04/24/2021 04/24/2021 Mitral valve regurgitation 04/24/2021 0 04/24/2021 Obesity 04/24/2021 04/24/2021 Old myocardial infarction 04/24/2021 Osteoarthritis of knee 04/24/202104/24 Palpitations 04/24/2021 04/24/2021 Substance misuse behavior 04/24/2021 Tachycardia-bradycardia 04/24/202104/08 Gout of multiple sites due t o renal impairment 06/18/2020 04/24/2021 H/O: malignant neoplasm 06/08/201706/06 Overview (04/19/2020): [facility] Bone Survey 05/28/17 IMPRESSION: No osteolytic or osteoblastic lesion is seen. There is straightening of the cervical lordosis consistent with muscle spasm. The lungs are clear. Cardiomegaly. Degenerative changes are present throughout the lumbar spine. Monoclonal gammopathy of unc ertain significance 01/04/2017 06/18/2020 Overview (06/18/2020): [facility] Hillman hematology Pt is getting bone marrow biopsy done Followed by nephrology. 06/21/18 - cut back Entresto 50%, continue Allopurinol 100 mg daily Bilateral plantar fasciitis 12/17/2016 06/18/2020 Overview (04/19/2020): SEEN BY [facility] Bilateral plantar fasciitis 12/17/2016 06/18/2020 Overview (06/18/2020): SEEN BY [facility] Graves' disease 06/26/2016 06/18/2020 Overview (04/19/2020): Followed by [facility] chronic obstructive pulmonary disease 09/24/2015 06/18/2020 Overview (06/18/2020): Sees Pulmonology History of mitral valve replacement 09/23/2015 06/18/2020 Overview (04/19/2020): The patient underwent elective mitral valve replacement using a 29 porcine tissue bioprosthesis with single-vessel coronary artery bypass grafting using the right greater saphenous vein into the posterior descending coronary artery and repair of intrathoracic vessel by atherectomy on August 14, 2015, by Dr. Ismael Boone. ON coumadin. Pt goes to coumadin clinic History of colonoscopy 11/22/201406/18 Overview (06/18/2020): Done 05/24/2007. Normal. To rpt in 10 years Bilateral osteoarthritis of knees 08/14/2014 06/18/2020 Ischemic myocardial dysfunction 11/24/2013 06/18/2020 Overview (06/18/2020): History of CHF. On workup found to severe MR . Cardiac Cath showed 1 VD. On 08/14/2015, pt electively went for MVR-tisue and CABG x1/RSVG to [facility] Ischemic cardiomyopathy implant to be done at a later dater Coronary arteriosclerosis 11/23/2012 Overview (04/19/2020): Sees [facility] fr [facility]. Has Cath 2009 60%RCA. RPT echo 08/2016; [facility] 09/04/16 Dilated left ventricle with sever global hypokinesis.EF in the range of 25-30% Dilated left atrium.normally functioning bioprosthetic aortic valve. Moderately dailated RV hypokinesis When compared to October of 2015 and April 2016 I believe there is slight improvement in the EF the lateral wall seems to contract better.Rv unchanged the ef remains much wore than August of 2014 which was before the mvr when the patient had an Ef that was near normal 06/22/18 - Patient leaving hospital with Implantable Cardioverter-Defibrillator w/ [facility] [employer] follow up in device clinic. 07/13/18 Hyperlipidemia 11/23/2012 06/18/2020 Congestive heart failure 11/23/2012 Immunizations Immunization Administration Dates Next Due Spindle SARS-COV-2 02/15/2021,06/17/2020 Pneumococcal Polysaccharide 07/09/2014 Family History Medical History Relation Comments Stroke Mother Cancer Sibling Relation Status Comments Father Mother Sibling Social History Tobacco Use Types Packs/Day Years Used Date Smoking Tobacco: Never Smokeless Tobacco: Never Alcohol Use Standard Drinks/Week Comments No 0 (1 standard drink = 0.6 oz pur e alcohol) Sex and Gender Information Value Date Recorded Sex Assigned at Not on file Legal Sex Male 5:10 PM EST Gender Identity Not on file Sexual Orientation Not on file Last Filed Vital Signs Vital Sign Reading Time Taken Comments Blood Pressure 88/50 12/10/2022 2:30 PM EDT Pulse 78 12/10/2022 2:30 PM EDT Temperature - - Respiratory Rate - - Oxygen Saturation 98% 12/05/2020 2:30 PM EDT Inhaled Oxygen Concentration - - Weight 83.9 kg (185 lb) 12/10/2022 2:30 PM EDT Height 165.1 cm (5' 5 ) 04/18/2020 9:14 AM EST Body Mass Index 30.79 04/18/2020 9:14 AM EST Plan of Treatment Health Maintenance Due Date Last Done Comments Pneumococcal Vaccine: 50+ Ye ars (2 of 2 - PCV) 07/10/2015 07/09/2014 Influenza Vaccine (Season Ended) 2024 Pneumococcal Vaccine: Peds ( 0 to 5 Years) and At-Risk Patients (6 to 49 Years) Discontinued 07/09/2014 Colorectal Cancer Screening: Colonoscopy Discontinued 06/18/2020 Hepatitis B Vaccine Aged Out No longe r eligible based on patient's age to complete this topic Insurance Medicaid [place] Generic Commercial [place] Generic Commercial Care Teams Chemical Blender Relationship Specialty Start Date End Date Arian Arcos MD [address] [facility] [address] [place] [address] PCP - General Internal Medicine 12/10/22
--- OUTSIDE RECORDS SUMMARY | 2024-06-27 15:46 | XMS_ITS | Encounter Summary ---
Author Organization [facility] Address [address] [facility] [address] [place] [address] Phone Care Team Providers Care Hooker Inspector Name Role Phone Arian Arcos MD Primary Care Provider [phone] Encounter Details Date Type Department Care Team (Late st Contact Info) Description 07/29/2022 Telephone [facility] [address] [place] [address] Kayla De La Torre Social History Tobacco Use Types Packs/Day Years Used Date Smoking Tobacco: Never Smokeless Tobacco: Never Alcohol Use Standard Drinks/Week Comments No 0 (1 standard drink = 0.6 oz pur e alcohol) Sex and Gender Information Value Date Recorded Sex Assigned at Not on file Legal Sex Male 5:10 PM EST Gender Identity Not on file Sexual Orientation Not on file documented as of this encounter Miscellaneous Notes * Telephone Encounter - Kayla De La Torre - 07/29/2022 3:28 PM EDT PT's called with concerns she wanted to relay to you regarding PT's treatment. She says her is in hospital, she would not relay any further. Please advise. [phone] documented in this encounter Plan of Treatment Not on file documented as of this encounter Visit Diagnoses Not on filedocumented in this encounter Care Teams Hooker Inspector Relationship Specialty Start Date End Date Arian Arcos MD [address] [place] [address] PCP - General Internal Medicine 12/10/22 documented as of this encounter
--- OUTSIDE RECORDS SUMMARY | 2024-06-27 15:46 | XMS_ITS | Clinical Summary ---
Author Organization [address] 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 Active digoxin (LANOXIN) 125 mcg (0.125 mg) tablet Take 1 tablet (125 mcg total) by mouth 1 (one) time each day. 12/02/19 24 Active dapagliflozin propanediol (FARXIGA) 10 mg tablet Take 10 mg by mouth daily. 10/01/19 22 Active ferrous gluconate (FERGON) 324 mg (37.5 mg iron) tablet Take 324 mg by mouth 3 times daily. 05/20/19 24 Active fluticasone furoate-vilante roL (BREO ELLIPTA) 200-25 mcg/dose inhaler Inhale into the lungs. I puff daily copd Active furosemide (LASIX) 40 mg tablet Take 1 tablet (40 mg total) by mouth 1 (one) time each day. 02/03/20 23 Active gabapentin (NEURONTIN) 100 mg capsule Take 1 capsule (100 mg total) by mouth 2 (two) times a day. Active methIMAzole (TAPAZOLE) 5 mg tablet Take 5 mg by mouth daily. Active sacubitriL-vals timothy (Entresto) 24-26 mg per tablet Take 1 tablet by mouth 2 (two) times a day. 180 tablet 3 02/25/20 24 Active apixaban (ELIQUIS) 2.5 mg tablet Take 1 tablet (2.5 mg total) by mouth 2 (two) times a day. 180 tablet 1 02/25/20 24 Active atorvastatin (LIPITOR) 20 mg tablet Take 1 tablet (20 mg total) by mouth 1 (one) time each day. Active pantoprazole (PROTONIX) 40 mg EC tablet Take 1 tablet (40 mg total) by mouth 1 (one) time each day before breakfast. Do not crush, chew, or split. Active spironolactone (ALDACTONE) 25 mg tablet Take 0.5 tablets (12.5 mg total) by mouth 1 (one) time each day. 15 each 06/16/19 25 025 Active metoprolol succinate (TOPROL-XL) 50 mg 24 hr tablet Take 1 tablet (50 mg total) by mouth 1 (one) time each day. Do not crush or chew. 06/20/19 Active metoprolol succinate (TOPROL-XL) 100 mg 24 hr tablet Take 1 tablet (100 mg total) by mouth 1 (one) time each day. 90 tablet 3 01/26/20 24 025 Discontinued spironolactone (ALDACTONE) 25 mg tablet TAKE 1/2 TABLET BY MOUTH DAILY 45 tablet 03/21/19 25 025 Discontinued metoprolol succinate (TOPROL-XL) 50 mg 24 hr tablet Take 1.5 tablets (75 mg total) by mouth 1 (one) time each day. 45 each 06/16/19 25 025 Discontinued(Do se adjustment) cefpodoxime (VANTIN) 200 mg tablet Take 1 tablet (200 mg total) by mouth 2 (two) times a day for 7 days. 14 each 06/16/19 25 025 Active Problems Problem Noted Date Diagnosed Date Acute on chronic HFrEF (hear t failure with reduced ejection fraction) ([facility] V24, [facility] V28) 06/13/2024 Ischemic cardiomyopathy 04/01/2021 Anemia in other chronic diseases classified else where 05/14/2020 Dilated cardiomyopathy ([facility] V24, [facility] V28 ) 05/14/2020 Monoclonal gammopathy 05/14/2020 Renal insufficiency 05/14/2020 Stage 3b chronic kidney disease ([facility] V24, [facility] /[facility] V28) 05/14/2020 Tricuspid valve insufficiency 05/14/2020 Atrial fibrillation ([facility] V24, [facility] V28) 1 03/31/2019 Encounters Date Type Department Care Team Description 06/16/2024 Telephone [facility] Cardiology [facility] [address] [place] [phone] Sixto Henderson MD Medication Concerns (Change in medications ) 06/13/2024 8:08 PM EDT - 06/15/2024 5:03 PM EDT Hospital Encounter [facility]rology [address] [place] [phone] Chadd Landin MD Millay, Scot A, MD Jones, Christopher, MD Santoyo-Pacheco, Omar D, MD Delirium (Primary Dx) Discharge Disposition: Home-Health Care [facility] 06/09/2024 11:30 PM EDT Ancillary Procedure [facility] - [address] [place] [address] 05/31/2024 3:30 PM EDT Ancillary Procedure [facility] - [address] [place] [address] Encounter for adjustment or management of cardiac device 05/24/2024 1:45 PM EDT Lab Draw Station - [address] [facility] [address] [place] [id number] Ischemic cardiomyopathy 05/24/2024 Telephone [facility] - [address] [place] [phone] Sixto Henderson MD Paper work 04/30/2024 8:10 PM EST Ancillary Procedure [facility] Cardiology [facility] - [address] [place] [address] from Last 3 Months Medical History Medical History Date Comments CHF (congestive heart failure) ([facility] V24, [facility] V28) COPD (chronic obstructive pulmonary disease) ([facility] S/H[facility] V24, [facility] V28) Renal disorder Social History Tobacco Use Types Packs/Day Years Used Date Smoking Tobacco: Never Smokeless Tobacco: Never Alcohol Use Standard Drinks/Week Comments No 0 (1 standard drink = 0.6 oz pur e alcohol) Interpersonal Safety Answer Date Record ed Physical Abuse 06/14/2024 Verbal Abuse 06/14/2024 Sex and Gender Information Value Date Recorded Sex Assigned at Male 06/13/2024 8:41 PM EDT Legal Sex Male 7:08 AM EST Gender Identity Male 06/13/2024 8:41 PM EDT Sexual Orientation Straight 06/13/2024 8: 41 PM EDT Obstetrics History Last Filed Vital Signs Vital Sign Reading Time Taken Comments Blood Pressure 118/66 06/15/2024 8:03 AM EDT Pulse 53 06/15/2024 8:03 AM EDT Temperature 36.6 ??C (97.9 ??F) 06/15/2024 8:03 AM ED T Respiratory Rate 16 06/15/2024 8:03 AM EDT Oxygen Saturation 95% 06/15/2024 8:03 AM EDT Inhaled Oxygen Concentration - - Weight 76.5 kg (168 lb 9.6 oz) 06/14/2024 6:51 P M EDT Height 162.6 cm (5' 4.02 ) 06/14/2024 6:41 PM ED T Body Mass Index 28.93 06/14/2024 6:41 PM EDT Plan of Treatment Upcoming Encounters Date Type Department Care Team (Late st Contact Info) Description 05/31/2025 3:00 PM EDT Ancillary Procedure [facility] - [facility] [address] [facility] [address] [place] [address] Health Maintenance Due Date Last Done Comments DTaP,Tdap,and Td Vaccines (1 - Tdap) 1964 Zoster Vaccines (1 of 2) 1964 Pneumococcal Vaccine: 50+ Years (2 of 2 - PCV) 07/10/2015 07/09/2014 RSV Immunization Adult Patients (1 - 1-dose 75+ series) 2020 Hepatitis C Screening 02/14/2022 Medicare Annual Wellness Visit 02/14/2022 Social Influencers of Health Screening 02/14/2022 Depression Screening 07/08/2022 07/08/2021 COVID-19 Vaccine ( season) 2023 02/15/2021, 06/17/2020 Influenza Vaccine (Season Ended) 2024 Falls Risk Assessment 06/15/2025 06/15/2024 Hypertension/CHF/CAD Annual BMP Blood Test 06/15/2025 06/15/2024, 06/14/2024, 06/13/2024, Additional history exists Cholesterol Screening (Lipid Panel) 04/18/2027 04/18/2022, 06/18/2014 HIB Vaccines Aged Out No longer eligi ble based on patient's age to complete this topic HPV Vaccines Aged Out No longer eligi ble based on patient's age to complete this topic Hepatitis A Vaccines Aged Out No long er eligible based on patient's age to complete this topic Hepatitis B Vaccines Aged Out No long er eligible based on patient's age to complete this topic IPV Vaccines Aged Out No longer eligi ble based on patient's age to complete this topic MMR Vaccines Aged Out No longer eligi ble based on patient's age to complete this topic Meningococcal ACWY Vaccine Aged Out N o longer eligible based on patient's age to complete this topic Meningococcal B Vaccine Aged Out No l onger eligible based on patient's age to complete this topic RSV Immunization Patients Under 20 months Aged Out No longer eligible based on patient's age to complete this topic Varicella Vaccines Aged Out No longer eligible based on patient's age to complete this topic Medical Devices Implanted Type Area [employer] Dispatcher Device Identifier Shelf Expiration Date Model / Serial / Lot Biot-Manu Intica 7 Vr-T Dx [id number] Implanted:06/06 (Quantity not on file) Cardiac ICD [employer] INTICA 7 VR-T DX / [id number] / Procedures Procedure Name Priority Date/Time Associated Diagnosis Comments ECG ANNOTATED 06/16/2024 CBC WITH AUTO DIFFERENTIAL Routine 06/15/2024 6:34 AM EDT BASIC METABOLIC PANEL Routine 06/15/2024 6:34 AM EDT CBC AND DIFFERENTIAL Routine 06/15/2024 6:34 AM EDT RESPIRATORY VIRUS PANEL MOLECULAR STUDY Routine 06/14/2024 10:41 AM EDT THYROXINE FREE Add-On 06/14/2024 5:07 AM EDT CREATINE KINASE AND CKMB Add-On 06/14/2024 5:07 AM EDT CBC WITH AUTO DIFFERENTIAL Routine 06/14/2024 5:07 AM EDT TROPONIN I HIGH SENSITIVITY Routine 06/14/2024 5:07 AM EDT CBC AND DIFFERENTIAL Routine 06/14/2024 5:07 AM EDT BASIC METABOLIC PANEL Routine 06/14/2024 5:07 AM EDT CULTURE BLOOD STAT 06/14/2024 12:50 AM EDT CULTURE BLOOD STAT 06/14/2024 12:40 AM EDT DIGOXIN LEVEL Timed 06/13/2024 11:31 PM EDT VENOUS BLOOD GAS STAT 06/13/2024 11:3 1 PM EDT LYNN URINE CULTURE TUBE Routine 06/13/2024 11:08 PM EDT EXTRA TUBES Routine 06/13/2024 11:08 PM EDT URINALYSIS WITH REFLEX MICROSCOPIC STAT 06/13/2024 11:08 PM EDT URINALYSIS WITH REFLEX MICROSCOPIC STAT 06/13/2024 11:08 PM EDT CULTURE URINE Add-On 06/13/2024 11:08 PM EDT [id number], RSV, FLU A AND B QUALITATIVE RT-PCR, INTERNAL LAB STAT 06/13/2024 10:41 PM EDT ECG 12-LEAD STAT 06/13/2024 10:09 PM EDT TROPONIN I HIGH SENSITIVITY STAT 06/13/2024 10:07 PM EDT XR CHEST 1 VIEW STAT 06/13/2024 9:57 PM EDT THYROID STIMULATING HORMONE WITH REFLEX TO FREE T4 AND FREE T3 Add-On 06/13/2024 8:37 PM EDT CBC WITH AUTO DIFFERENTIAL STAT 06/13/2024 8:37 PM EDT B-TYPE NATRIURETIC PEPTIDE STAT 06/13/2024 8:37 PM EDT MAGNESIUM STAT 06/13/2024 8:37 PM EDT LIPASE STAT 06/13/2024 8:37 PM EDT COMPREHENSIVE METABOLIC PANEL STAT 06/13/2024 8:37 PM EDT CBC AND DIFFERENTIAL STAT 06/13/2024 8:37 PM EDT TROPONIN I HIGH SENSITIVITY STAT 06/13/2024 8:37 PM EDT ECG 12-LEAD STAT 06/13/2024 8:27 PM EDT CARDIAC DEVICE CHECK- REMOTE- MURJ Routine 06/09/2024 11:29 PM EDT CARDIAC DEVICE CHECK- IN CLINIC- MURJ Routine 05/31/2024 3:35 PM EDT Encounter for adjustment or management of cardiac device B-TYPE NATRIURETIC PEPTIDE Routine 05/24/2024 2:00 PM EDT Ischemic cardiomyopathy COMPREHENSIVE METABOLIC PANEL Routine 05/24/2024 2:00 PM EDT Ischemic cardiomyopathy CARDIAC DEVICE CHECK- REMOTE- MURJ Routine 04/30/2024 8:05 PM EST LIPID PANEL Routine 04/18/2022 from Last 3 Months or Most Recently Relevant to Health Maintenance Results * ECG-Annotated (06/16/2024) us Provider Onbase MD ECG ORDERABLES Final Result * (ABNORMAL) CBC auto differential (06/15/2024 6:34 AM EDT) Only the most recent of3 resultswithin the time period is included. WBC 5.4 4.8 - 10.8 K/mcL LAB HEMETOLOGY METHOD 06/15/2024 7:29 AM [facility] RBC 3.50(L) 4.50 - 5.50 M/mcL LAB HEMETOLOGY METHOD 06/15/2024 7:29 AM [facility] Hemoglobin 11.5(L) 13.5 - 17.5 g/dL LAB HEMETOLOGY METHOD 06/15/2024 7:29 AM [facility] Hematocrit 36.4(L) 42.0 - 54.0 % LAB HEMETOLOGY METHOD 06/15/2024 7:29 AM [facility] MCV 103.7(H) 79.0 - 98.0 FL LAB HEMETOLOGY METHOD 06/15/2024 7:29 AM [facility] MCH 32.8(H) 27.0 - 32.0 pcg LAB HEMETOLOGY METHOD 06/15/2024 7:29 AM [facility] MCHC 31.6(L) 32.0 - 37.0 g/dL LAB HEMETOLOGY METHOD 06/15/2024 7:29 AM [facility] RDW 14.6 11.0 - 15.0 % LAB HEMETOLOGY METHOD 06/15/2024 7:29 AM [facility] Platelets 168 130 - 400 K/mcL LAB HEMETOLOGY METHOD 06/15/2024 7:29 AM [facility] MPV 11.6(H) 7.0 - 11.0 FL LAB HEMETOLOGY METHOD 06/15/2024 7:29 AM [facility] NRBC 0.0 <1.0 % LAB HEMETOLOGY METHOD 06/15/2024 7:29 AM [facility] NRBC Absolute 0.00 <0.10 K/mcL LAB HEMETOLOGY METHOD 06/15/2024 7:29 AM [facility] Neutrophils Relative 51.6 % LAB HEMETOLOGY METHOD 06/15/2024 7:29 AM [facility] Lymphocytes Relative 25.6 % LAB HEMETOLOGY METHOD 06/15/2024 7:29 AM [facility] Monocytes Relative 19.4 % LAB HEMETOLOGY METHOD 06/15/2024 7:29 AM [facility] Eosinophils Relative 1.5 % LAB HEMETOLOGY METHOD 06/15/2024 7:29 AM [facility] Basophils Relative 1.5 % LAB HEMETOLOGY METHOD 06/15/2024 7:29 AM [facility] Immature Granulocytes Relative 0.4 % LAB HEMETOLOGY METHOD 06/15/2024 7:29 AM [facility] Neutrophils Absolute 2.79 1.50 - 7.00 K/mcL LAB HEMETOLOGY METHOD 06/15/2024 7:29 AM [facility] Lymphocytes Absolute 1.38 1.00 - 5.00 K/mcL LAB HEMETOLOGY METHOD 06/15/2024 7:29 AM [facility] Monocytes Absolute 1.05(H) 0.20 - 1.00 K/mcL LAB HEMETOLOGY METHOD 06/15/2024 7:29 AM EDT [facility] Eosinophils Absolute 0.08 0.00 - 0.50 K/[facility] LAB HEMETOLOGY METHOD 06/15/2024 7:29 AM EDT [facility] Basophils Absolute 0.08 0.00 - 0.20 K/mcL LAB HEMETOLOGY METHOD 06/15/2024 7:29 AM EDT [facility] Immature Granulocytes Absolute 0.02 0.00 - 0.03 K/[facility] LAB HEMETOLOGY METHOD 06/15/2024 7:29 AM T [facility] Blood Venous blood specimen / Unknown Venipuncture / Unknown 06/15/2024 6:34 AM EDT 06/15/2024 7:09 AM EDT [facility] LAB BLOOD ORDERABLES Marjan pino Result [facility] [address] [place] [address], [place] [phone] * (ABNORMAL) Basic metabolic panel (06/15/2024 6:34 AM EDT) Only the most recent of2 resultswithin the time period is included. Sodium 138 133 - 145 mmol/L LAB CHEMISTRY METHOD 06/15/2024 7:41 AM [facility] Potassium 4.0 3.5 - 5.5 mmol/L LAB CHEMISTRY METHOD 06/15/2024 7:41 AM [facility] Chloride 106 96 - 110 mmol/L LAB CHEMISTRY METHOD 06/15/2024 7:41 AM [facility] CO2 24 21 - 32 mmol/L LAB CHEMISTRY METHOD 06/15/2024 7:41 AM [facility] Anion Gap 8 3 - 11 LAB CHEMISTRY METHOD 06/15[facility]2024 7[facility] Glucose 121(H) 70 - 100 mg/dL LAB CHEMISTRY METHOD 06/15/2024 7:41 AM [facility] BUN 24 5 - 25 mg/dL LAB CHEMISTRY METHOD 06/15/2024 7:41 AM [facility] Creatinine 2.29(H) 0.70 - 1.30 mg/dL LAB CHEMISTRY METHOD 06/15/2024 7:41 AM [facility] eGFR 28(L) >=60 mL/min/1. 73m2 LAB CHEMISTRY METHOD 06/15/2024 7:41 AM T [facility] Comment:Calculation based on the??Chronic Kidney Disease Epidemiology Collaboration (CKD-EPI) equation refit??without adjustment for race. BUN/Creatinine Ratio 10.5 LAB CHEMISTRY METHOD 06/15/2024 7:41 AM [facility] Calcium 9.6 8.5 - 10.5 mg/dL LAB CHEMISTRY METHOD 06/15/2024 7:41 AM T [facility] Blood Venous blood specimen / Unknown Venipuncture / Unknown 06/15/2024 6:34 AM EDT 06/15/2024 7:09 AM EDT [facility] LAB BLOOD ORDERABLES Marjan l Result [facility] [address] [place] [address], * Respiratory virus panel molecular study (06/14/2024 10:41 AM EDT) Pathologist [facility] Adenovirus Detection by PCR Not Detected Not Detected LAB MICROBIOLOGY METHOD 06/14/2024 12:17 PM EDT [facility] Influenza A PCR Not Detected Not Detected LAB MICROBIOLOGY METHOD 06/14/2024 12:17 PM T [facility] Influenza B PCR Not Detected Not Detected LAB MICROBIOLOGY METHOD 06/14/2024 12:17 PM EDT [facility] Coronavirus 229E Not Detected Not Detected LAB MICROBIOLOGY METHOD 06/14/2024 12:17 PM EDT [facility] Coronavirus HKU1 Not Detected Not Detected LAB MICROBIOLOGY METHOD 06/14/2024 12:17 PM EDT [facility] Coronavirus OC43 Not Detected Not Detected LAB MICROBIOLOGY METHOD 06/14/2024 12:17 PM EDT [facility] Coronavirus NL63 Not Detected Not Detected LAB MICROBIOLOGY METHOD 06/14/2024 12:17 PM EDT [facility] Parainfluenza Virus 1 Not Detected Not Detected LAB MICROBIOLOGY METHOD 06/14/2024 12:17 PM EDT [facility] Parainfluenza Virus 2 Not Detected Not Detected LAB MICROBIOLOGY METHOD 06/14/2024 12:17 PM EDT [facility] Parainfluenza Virus 3 Not Detected Not Detected LAB MICROBIOLOGY METHOD 06/14/2024 12:17 PM EDT [facility] Parainfluenza Virus 4 Not Detected Not Detected LAB MICROBIOLOGY METHOD 06/14/2024 12:17 PM EDT [facility] RSV PCR Not Detected Not Detected LAB MICROBIOLOGY METHOD 06/14/2024 12:17 PM EDT [facility] Human Metapneumovirus A and B Not Detected Not Detected LAB MICROBIOLOGY METHOD 06/14/2024 12:17 PM EDT [facility] Rhinovirus/Entero virus Not Detected Not Detected LAB MICROBIOLOGY METHOD 06/14/2024 12:17 PM EDT [facility] Bordetella pertussis Not Detected Not Detected LAB MICROBIOLOGY METHOD 06/14/2024 12:17 PM EDT [facility] Bordetella parapertussis Not Detected Not Detected LAB MICROBIOLOGY METHOD 06/14/2024 12:17 PM EDT [facility] Mycoplasma pneumo by PCR Not Detected Not Detected LAB MICROBIOLOGY METHOD 06/14/2024 12:17 PM EDT [facility] Chlamydia pneumoniae Not Detected Not Detected LAB MICROBIOLOGY METHOD 06/14/2024 12:17 PM EDT [facility] SARS COV-2 Not Detected Not Detected LAB MICROBIOLOGY METHOD 06/14/2024 12:17 PM EDT [facility] Swab Nasopharyngeal structure / Unknown Non-blood Collection / Unknown 06/14/2024 10:41 AM EDT 06/14/2024 11:12 AM EDT Narrative [facility] - 06/14/2024 12:17 PM EDT Testing was performed using the [employer] Respiratory Pathogen PCR Assay. All results must be correlated with the clinical findings. Results should not be used as the sole basis for diagnosis. False Negative results may occur from the presence of sequence variants in the region targeted by the assay or the presence of inhibitors. Results may be affected by concurrent antiviral/antimicrobial therapy or levels of organisms that are below the limit of detection. Mario [facility] LAB MICROBIOLOGY - GENERA L ORDERABLES Final Result [facility] [address] [place] [address], * (ABNORMAL) Troponin I high sensitivity (06/14/2024 5:07 AM EDT) Only the most recent of3 resultswithin the time period is included. High Sensitivity Troponin I 465(HH) <=79 ng/L LAB CHEMISTRY METHOD 06/14/2024 6:14 AM EDT [facility] Blood Venous blood specimen / Unknown Venipuncture / Unknown 06/14/2024 5:07 AM EDT 06/14/2024 5:18 AM EDT Narrative [facility] - 06/14/2024 6:14 AM EDT High levels of biotin in samples may falsely decrease hsTroponin values. ??Use caution when interpreting hsTroponin results in patients taking biotin who exhibit renal impairment (eGFR <60) or in patients taking more than 20 mg/day of biotin. Gogo [facility] LAB BLOOD ORDERABLES Final Resu lt Performing Organization Address [facility]/ZIP Co de Phone Number [facility] [address] [place] [address], [place] [phone] * Thyroxine free (06/14/2024 5:07 AM EDT) Pathologist [facility] Free T4 1.41 0.70 - 1.80 ng/dL LAB CHEMISTRY METHOD 06/14/2024 5:29 PM EDT [facility] Blood Venous blood specimen / Unknown Venipuncture / Unknown 06/14/2024 5:07 AM EDT 06/14/2024 5:18 AM EDT Mario [facility] LAB BLOOD ORDERABLES Marjan l Result Performing Organization Address [facility] Co de Phone Number [facility] [address] [place] [address], [place] [phone] * Creatine kinase and CKMB (06/14/2024 5:07 AM EDT) [facility] Total CK 66 22 - 269 unit/L LAB CHEMISTRY METHOD 06/14/2024 8:41 AM EDT [facility] CK-MB 2.4 1.0 - 3.6 ng/mL LAB CHEMISTRY METHOD 06/14/2024 8:41 AM EDT [facility] CK-MB Index 0.0 0.0 - 5.0 LAB CHEMISTRY METHOD 06/14/2024 8:41 AM EDT [facility] Blood Venous blood specimen / Unknown Venipuncture / Unknown 06/14/2024 5:07 AM EDT 06/14/2024 5:18 AM EDT Mario [facility] LAB BLOOD ORDERABLES Marjan l Result Performing Organization Address City/[facility]/ZIP Co de Phone Number [facility] [address] [place] [address], [place] [phone] * Blood Culture, Peripheral Draw #1 (06/14/2024 12:50 AM EDT) Only the most recent of2 resultswithin the time period is included. Culture, Blood No growth at 5 days LAB MICROBIOLOGY METHOD 06/19/2024 3:07 AM EDT [facility] Blood Venous blood specimen / Unknown Venipuncture / Unknown 06/14/2024 12:50 AM EDT 06/14/2024 1:10 AM EDT Gogo [facility] MICROBIOLOGY - GENERAL GURWINDER LARSON Final Result Performing Organization Address [facility]/ZIP Co de Phone Number [facility] [address] [place] [address], [place] [phone] * (ABNORMAL) Venous blood gas (06/13/2024 11:31 PM EDT) pH, Landen 7.36 7.32 - 7.42 pH 06/13/2024 11:42 PM EDT [facility] pCO2, Landen 56(H) 41 - 51 mmHg 06/13/2024 11:42 PM EDT [facility] pO2, Landen 27 25 - 40 mmHg 06/13/2024 11:42 PM EDT [facility] HCO3, Venous 27.0(H) 22.0 - 26.0 mmol/L 06/13/2024 11:42 PM EDT [facility] O2 Sat, Alnden 30.2 % 06/13/2024 11:42 PM EDT [facility] Base Excess, Landen 4.8(H) -2.0 - 2.0 mmol/L 06/13/2024 11:42 PM EDT [facility] Blood Venous blood specimen / Unknown Venipuncture / Unknown 06/13/2024 11:31 PM EDT 06/13/2024 11:39 PM EDT Kevon Hassan MD LAB BLOOD ORDERABLES Final Result Performing Organization Address [facility]/ZIP Co de Phone Number [facility] [address] [place] [address], [place] [phone] * Digoxin level (06/13/2024 11:31 PM EDT) [facility] Digoxin Lvl 1.3 0.5 - 2.0 ng/mL LAB CHEMISTRY METHOD 06/14/2024 12:27 AM EDT [facility] Blood Venous blood specimen / Unknown Venipuncture / Unknown 06/13/2024 11:31 PM EDT 06/13/2024 11:39 PM EDT Kevon Hassan MD LAB BLOOD ORDERABLES Final Result Performing Organization Address [facility] de Phone Number [facility] [address] [place] [address], [place] [phone] * (ABNORMAL) Urinalysis with reflex microscopic (06/13/2024 11:08 PM EDT) [facility] Specific Lejunior Urine 1.014 1.003 - 1.030 LAB URINALYSIS - AUTOMATED METHOD 06/13/2024 11:30 PM EDT [facility] pH, Urine 6.0 5.0 - 8.0 pH LAB URINALYSIS - AUTOMATED METHOD 06/13/2024 11:30 PM EDT [facility] Leukocytes, Urine Large(A) Negative LAB URINALYSIS - AUTOMATED METHOD 06/13/2024 11:30 PM EDT [facility] Nitrite, Urine Negative Negative LAB URINALYSIS - AUTOMATED METHOD 06/13/2024 11:30 PM EDT [facility] Protein, Urine 100(A) <=Trace mg/dL LAB URINALYSIS - AUTOMATED METHOD 06/13/2024 11:30 PM [facility] Glucose, Urine 250(A) Negative mg/dL LAB URINALYSIS - AUTOMATED METHOD 06/13/2024 11:30 PM [facility] Ketones, Urine Negative Negative mg/dL LAB URINALYSIS - AUTOMATED METHOD 06/13/2024 11:30 PM [facility] Urobilinogen , Urine 0.2 0.2 - 1.0 mg/dL LAB URINALYSIS - AUTOMATED METHOD 06/13/2024 11:30 PM [facility] [facility] Bilirubin, Urine Negative Negative LAB URINALYSIS - AUTOMATED METHOD 06/13/2024 11:30 PM [facility] Blood, Urine Moderate(A) Negative LAB URINALYSIS - AUTOMATED METHOD 06/13/2024 11:30 PM [facility] RBC, Urine 33.2(H) 0 - 4 /HPF LAB URINALYSIS - AUTOMATED METHOD 06/13/2024 11:30 PM [facility] WBC, Urine 1,412.2(H) 0 - 4 /HPF LAB URINALYSIS - AUTOMATED METHOD 06/13/2024 11:30 PM [facility] Squamous Epithelial, Urine 72(H) 0 - 60 /LPF LAB URINALYSIS - AUTOMATED METHOD 06/13/2024 11:30 PM [facility] Bacteria, Urine Many(A) Negative /HPF LAB URINALYSIS - AUTOMATED METHOD 06/13/2024 11:30 PM [facility] Hyaline Casts, Urine 1.5 0 - 3 /LPF LAB URINALYSIS - AUTOMATED METHOD 06/13/2024 11:30 PM [facility] Urine Urine specimen obtained by clean catch procedure / Unknown Non-blood Collection / Unknown 06/13/2024 11:08 PM EDT 06/13/2024 11:21 PM EDT Chadd Landin MD LAB URINE ORDERABLES Final Result Performing Organization Address [facility]/ZIP Co de Phone Number [facility] [address] [place] [address], [place] [phone] * Lynn urine culture tube (06/13/2024 11:08 PM EDT) [facility] Extra Tube Hold for add-ons. 06/14/2024 1:05 AM EDT [facility] Comment:Auto resulted. Urine Urine specimen obtained by clean catch procedure / Unknown 06/13/2024 11:08 PM EDT 06/13/2024 11:22 PM EDT Kevon Hassan MD LAB URINE ORDERABLES Final Result Performing Organization Address [facility] Co de Phone Number [facility] [address] [place] [address], [place] [phone] * (ABNORMAL) Culture urine (06/13/2024 11:08 PM EDT) [facility] Culture, Urine >100,000 CFU/mL Streptococcus beta-hemolytic Group B(A) ABNER 06/17/2024 10:02 AM EDT [facility] Comment: Susceptibility testing is not routinely performed for Beta Streptococcus isolates since these organisms are predictably sensitive to Penicillin. If the Patient is not responding, is allergic to Penicillin, or further therapeutic information is requir ed, please consult an Infectious Disease Specialist. Culture, Urine 10,000-49,000 CFU/mL Enterobacter cloacae complex(A) ABNER 06/17/2024 10:02 AM EDT [facility] Comment: This is an edited result. Previous organism was Gram negative bacilli on 06/16/2024 at 1138 EDT. Urine Urine specimen obtained by clean catch procedure / Unknown 06/13/2024 11:08 PM EDT 06/13/2024 11:22 PM EDT Narrative [facility] - 06/17/2024 10:02 AM EDT Additional colony types present in insignificant amounts. Organism Antibiotic Method Susceptibility Enterobacter cloacae complex Amoxicillin/Clavulanate ABNER >=32 ug/ml: Resistant Enterobacter cloacae complex Cefoxitin ABNER >=64 ug/ml: Resistant Enterobacter cloacae complex Ceftazidime ABNER <=0.5 ug/ml: Susceptible Enterobacter cloacae complex Cefepime ABNER <=0.12 ug/ml: Susceptible Enterobacter cloacae complex Meropenem ABNER <=0.25 ug/ml: Susceptible Enterobacter cloacae complex Amikacin ABNER <=1 ug/ml: Susceptible Enterobacter cloacae complex Gentamicin ABNER <=1 ug/ml: Susceptible Enterobacter cloacae complex Ciprofloxacin ABNER <=0.06 ug/ml: Susceptible Enterobacter cloacae complex Levofloxacin ABNER <=0.12 ug/ml: Susceptible Enterobacter cloacae complex Nitrofurantoin ABNER 32 ug/ml: Susceptible Enterobacter cloacae complex Trimethoprim/Sulfamethoxazo le ABNER <=20 ug/ml: Susceptible Akin Maguire MD LAB MICROBIOLOGY - GEN ERAL ORDERABLES Final Result [facility] [address] [place] [address], * [id number], RSV, Influenza A and B qualitative RT-PCR (06/13/2024 10:41 PM EDT) Influenza A PCR Not Detected Not Detected LAB MICROBIOLOGY METHOD 06/14/2024 12:03 AM EDT [facility] Influenza B PCR Not Detected Not Detected LAB MICROBIOLOGY METHOD 06/14/2024 12:03 AM EDT [facility] RSV PCR Not Detected Not Detected LAB MICROBIOLOGY METHOD 06/14/2024 12:03 AM EDT [facility] SARS COV-2 Not Detected Not Detected LAB MICROBIOLOGY METHOD 06/14/2024 12:03 AM EDT [facility] Swab Both anterior nares / Unknown Non-blood Collection / Unknown 06/13/2024 10:41 PM EDT 06/13/2024 11:22 PM EDT Narrative [facility] - 06/14/2024 12:03 AM EDT Disclaimer: ??Testing was performed using the [employer] GeneXpert Xpress SARS-CoV-2 _Flu_RSV PLUS PCR assay. ??The manner in which this information is used to guide patient care is the responsibility of the healthcare provider. ??Results should be correlated with the clinical history, epidemiological data, and other data available to the clinician evaluating the patient. ??Negative results do not preclude infection. ??This test has been authorized by the FDA under an Emergency Use Authorization (EUA). ??This test is only authorized for the duration of time the declaration that circumstances exist justifying the authorization of the emergency use of in vitro diagnostic tests for detection of SARS-CoV-2 virus and/or diagnosis of COVID-19 infection under section 564 (b) (1) of the Act, 21 U.S.C 360bbb-3 (b) (1), unless the authorization is terminated or revoked sooner. ?? Reference Range: Not Detected Fact sheet for Healthcare providers can be found at https://www.fda.gov/media/884127/download. ?? Fact sheet for Healthcare patients can be found at https://www.fda.gov/media/266271/download. us Chadd Landin MD LAB MICROBIOLOGY - GENERAL ORDERABLES Final Result [facility] [address] [place] [address], * ECG 12 lead (06/13/2024 10:09 PM EDT) Only the most recent of2 resultswithin the time period is included. Ventricular Rate ECG 60 BPM GEMUSE Atrial Rate 58 BPM GEMUSE QRS Duration 112 ms GEMUSE Q-T Interval 432 ms GEMUSE QTc 432 ms GEMUSE R Pinon -37 degrees GEMUSE T Pinon 160 degrees GEMUSE ECG Interpretation Atrial fibrillation with occasional ventricular-pace d complexes and with premature ventricular or aberrantly conducted complexes Left axis deviation Inferior infarct , age undetermined ST and T wave abnormality, consider anterolateral ischemia Abnormal ECG When compared with ECG of 13-JUN-2024 20:27, Vent. rate has increased BY ?? 7 BPM Confirmed by MD Elian, Kevon ([id number]) on 06/16/2024 12:54:08 AM GEMUSE 06/13/2024 10:0 9 PM EDT 06/16/2024 12:54 AM EDT us Chadd Landin MD ECG ORDERABLES Final Resul t GEMUSE * XR Chest 1 View (06/13/2024 9:57 PM EDT) Anatomical Region Laterality Modality Body Radiographic Kari ging 06/14/2024 11:1 8 AM EDT Impressions 06/14/2024 11:29 AM EDT FINDINGS/IMPRESSION: Cardiac silhouette enlargement with left chest wall pacemaker/ACD and single lead unchanged. ??Pulmonary vascular congestion, similar compared to prior. ??No pleural effusion or pneumothorax. ??Median sternotomy and bones are unchanged. -------- FINAL REPORT -------- Dictated By: DEION GUILLERMO Dictated Date: 06/14/2024 11:18 ET Assigned Physician: DEION GUILLERMO Reviewed and Electronically Signed By: DEION GUILLERMO Signed Date: 06/14/2024 11:29 ET Workstation ID: [id number] Transcribed By: Self Edit Transcribed Date: 06/14/2024 11:18 ET Narrative 06/14/2024 11:29 AM EDT XR CHEST 1 VIEW INDICATION: ??Shortness of breath TECHNIQUE: XR CHEST 1 VIEW COMPARISON: 12/11/2022 Procedure Note Deion Guillermo MD - 06/14/2024 XR CHEST 1 VIEW INDICATION: Shortness of breath TECHNIQUE: XR CHEST 1 VIEW COMPARISON: 12/11/2022 IMPRESSION: FINDINGS/IMPRESSION: Cardiac silhouette enlargement with left chest wallpacemaker/ACD and single lead unchanged. Pulmonary vascular congestion,similar compared to prior. No pleural effusion or pneumothorax. Mediansternotomy and bones are unchanged. -------- FINAL REPORT -------- Dictated By: DEION GUILLERMO Dictated Date: 06/14/2024 11:18 ET Assigned Physician: DEION GUILLERMO Reviewed and Electronically Signed By: DEION GUILLERMO Signed Date: 06/14/2024 11:29 ET Workstation ID: [id number] Transcribed By: Self Edit Transcribed Date: 06/14/2024 11:18 ET Kevon Hassan MD IMG XR PROCEDURES Final Res ult * Thyroid stimulating hormone with reflex to free t4 and free t3 (06/13/2024 8:37 PM EDT) [facility] TSH 2.37 0.40 - 4.00 mcIU/mL LAB CHEMISTRY METHOD 06/15/2024 2:22 PM EDT [facility] Blood Venous blood specimen / Unknown Venipuncture / Unknown 06/13/2024 8:37 PM EDT 06/13/2024 9:08 PM EDT Kevon Hassan MD LAB BLOOD ORDERABLES Final Result [facility] [address] [place] [address], * (ABNORMAL) B-type natriuretic peptide (06/13/2024 8:37 PM EDT) Only the most recent of2 resultswithin the time period is included. Pathologist [facility] BNP >5,000(H) <=100 pcg/mL LAB CHEMISTRY METHOD 06/13/2024 9:50 PM EDT [facility] Blood Venous blood specimen / Unknown Venipuncture / Unknown 06/13/2024 8:37 PM EDT 06/13/2024 9:08 PM EDT Chadd Landin MD LAB BLOOD ORDERABLES Final Result Performing Organization Address [facility] de Phone Number [facility] [address] [place] [address], * Magnesium (06/13/2024 8:37 PM EDT) Pathologist [facility] Magnesium 2.1 1.9 - 2.6 mg/dL LAB CHEMISTRY METHOD 06/13/2024 9:36 PM EDT [facility] Blood Venous blood specimen / Unknown Venipuncture / Unknown 06/13/2024 8:37 PM EDT 06/13/2024 9:08 PM EDT Chadd Landin MD LAB BLOOD ORDERABLES Final Result Performing Organization Address [facility] de Phone Number [facility] [address] [place] [address], * Lipase (06/13/2024 8:37 PM EDT) [facility] Lipase 55 13 - 75 unit/L LAB CHEMISTRY METHOD 06/13/2024 9:36 PM EDT [facility] Blood Venous blood specimen / Unknown Venipuncture / Unknown 06/13/2024 8:37 PM EDT 06/13/2024 9:08 PM EDT Chadd Landin MD LAB BLOOD ORDERABLES Final Result Performing Organization Address [facility] de Phone Number [facility] [address] [place] [address], [place] [phone] * (ABNORMAL) Comprehensive metabolic panel (06/13/2024 8:37 PM EDT) Only the most recent of2 resultswithin the time period is included. Pathologist [facility] Sodium 137 133 - 145 mmol/L LAB CHEMISTRY METHOD 06/13/2024 9:36 PM EDT [facility] Potassium 3.9 3.5 - 5.5 mmol/L LAB CHEMISTRY METHOD 06/13/2024 9:36 PM [facility] Comment:Hemolysis present Chloride 107 96 - 110 mmol/L LAB CHEMISTRY METHOD 06/13/2024 9:36 PM [facility] CO2 25 21 - 32 mmol/L LAB CHEMISTRY METHOD 06/13/2024 9:36 PM [facility] Anion Gap 5 3 - 11 LAB CHEMISTRY METHOD 06/13/2024 9:36 PM [facility] Glucose 130(H) 70 - 100 mg/dL LAB CHEMISTRY METHOD 06/13/2024 9:36 PM [facility] BUN 24 5 - 25 mg/dL LAB CHEMISTRY METHOD 06/13/2024 9:36 PM [facility] Creatinine 2.41(H) 0.70 - 1.30 mg/dL LAB CHEMISTRY METHOD 06/13/2024 9:36 PM [facility] eGFR 27(L) >=60 mL/min/1. 73m2 LAB CHEMISTRY METHOD 06/13/2024 9:36 PM [facility] Comment:Calculation based on the??Chronic Kidney Disease Epidemiology Collaboration (CKD-EPI) equation refit??without adjustment for race. BUN/Creatinine Ratio 10.0 LAB CHEMISTRY METHOD 06/13/2024 9:36 PM [facility] Calcium 9.3 8.5 - 10.5 mg/dL LAB CHEMISTRY METHOD 06/13/2024 9:36 PM [facility] AST (SGOT) 41 10 - 42 unit/L LAB CHEMISTRY METHOD 06/13/2024 9:36 PM [facility] ALT (SGPT) 24 10 - 60 unit/L LAB CHEMISTRY METHOD 06/13/2024 9:36 PM [facility] Alkaline Phosphatase 131(H) 42 - 121 unit/L LAB CHEMISTRY METHOD 06/13/2024 9:36 PM EDT [facility] Total Protein 8.3(H) 6.0 - 8.0 g/dL LAB CHEMISTRY METHOD 06/13/2024 9:36 PM EDT [facility] Albumin 3.0(L) 3.2 - 5.0 g/dL LAB CHEMISTRY METHOD 06/13/2024 9:36 PM EDT [facility] Total Bilirubin 1.2 0.0 - 1.4 mg/dL LAB CHEMISTRY METHOD 06/13/2024 9:36 PM EDT [facility] Blood Venous blood specimen / Unknown Venipuncture / Unknown 06/13/2024 8:37 PM EDT 06/13/2024 9:08 PM EDT us Chadd Landin MD LAB BLOOD ORDERABLES Final Result [facility] [address] [place] [address], * Cardiac device check - Remote- MURJ (06/09/2024 11:29 PM EDT) Only the most recent of2 resultswithin the time period is included. Date Time Interrogation Session [id number] CV DEVICE CHECK Type Interrogation Session RemoteScheduled CV DEVICE CHECK Implantable Pulse Generator [employer] Dispatcher BIO CV DEVICE CHECK Implantable Pulse Generator Type ICD CV DEVICE CHECK Implantable Pulse Generator Model Intica 7 VR-T DX CV DEVICE CHECK Implantable Pulse Generator Serial Number [id number] CV DEVICE CHECK Implantable Pulse Generator Implant Date 20180620 CV DEVICE CHECK Battery Remaining Percentage 49.00 CV DEVICE CHECK Battery Voltage 3.100 CV D EVICE CHECK Battery RADIOLOGY CLERK Trigger 2.850 CV DEVICE CHECK Battery Status Middle of Service CV DEVICE CHECK Capacitor Charge Time 11.400 CV DEVICE CHECK Ryan Statistic RV Percent Paced 48.00 CV DEVICE CHECK Atrial Tachy Statistic AT/AF Dolphin Percent 0.00 CV DEVICE CHECK Lead Channel Sensing Intrinsic Amplitude 0.500 CV DEVICE CHECK Lead Channel Setting Sensing Sensitivity 0.20 CV DEVICE CHECK Lead Channel RA Pacing Threshold Date 2023-10-28 CV DEVICE CHECK Lead Channel Sensing Intrinsic Amplitude 3.200 CV DEVICE CHECK Lead Channel Setting Sensing Sensitivity 0.80 CV DEVICE CHECK Lead Channel Impedance Value 405 CV DEVICE CHECK Lead Channel Pacing Threshold Amplitude 0.800 CV DEVICE CHECK Lead Channel Pacing Threshold Pulse Width 0.4 CV DEVICE CHECK Lead Channel RV Pacing Threshold Date 2023-10-28 CV DEVICE CHECK Lead Channel Setting Pacing Amplitude 1.800 CV DEVICE CHECK Lead Channel Setting Pacing Pulse Width 0.4 CV DEVICE CHECK Ryan Setting Mode (NBG Code) VVIR CV DEVICE CHECK Ryan Setting Lower Rate Limit 50 CV DEVICE CHECK Ryan Setting Maximum Sensor Rate 120 CV DEVICE CHECK Therapy Statistic Recent Shocks Delivered 0 CV DEVICE CHECK Therapy Statistic Recent Shocks Aborted 0 CV DEVICE CHECK Therapy Statistic Recent ATP Delivered 0 CV DEVICE CHECK Shock Measured Impedance 76 CV DEVICE CHECK Zone Setting Type Category Zone_ATAF CV DEVICE CHECK Rate 200 CV DEVICE CHECK Zone Setting Status Monitor CV DEVICE CHECK Zone ID 6 CV DEVICE CHECK Zone Setting Type Category VF CV DEVICE CHECK Rate 200 CV DEVICE CHECK Therapies Burst,40.0J,40.0J, 40.0J x 6 CV DEVICE CHECK Zone Setting Status On CV DEVICE CHECK Zone ID 7 CV DEVICE CHECK Zone Setting Type Category VT CV DEVICE CHECK Rate 150 CV DEVICE CHECK Zone Setting Status Monitor CV DEVICE CHECK Zone ID 8 CV DEVICE CHECK Zone Setting Type Category VT CV DEVICE CHECK Zone Setting Status Inactive CV DEVICE CHECK Zone ID 9 CV DEVICE CHECK Date of Service 2023-11-07 CV DEVICE CHECK Anatomical Region Laterality Modality Device Interroga tion 10/28/2023 1:06 AM EDT Impressions 10/31/2023 8:53 PM EDT Normal Remote: No Events * Normal Device Function * Alerts or events: None * Battery: Battery is at 49%, * Sensing, impedance and thresholds reviewed * Programmed parameters reviewed * Presenting rhythm reviewed * Heart Rate Histograms reviewed * No significant changes noted Heart Failure Diagnostic: Stable * Heart failure diagnostics assessed through the device * Status: Stable * No overt HF present Narrative Procedure Note Bahman Capps MD - 06/09/2024 IMPRESSION: Normal Remote: No Events * Normal Device Function * Alerts or events: None * Battery: Battery is at 49%, * Sensing, impedance and thresholds reviewed * Programmed parameters reviewed * Presenting rhythm reviewed * Heart Rate Histograms reviewed * No significant changes noted Heart Failure Diagnostic: Stable * Heart failure diagnostics assessed through the device * Status: Stable * No overt HF present Bahman Capps MD CV IMPLANTABLE CARDIAC DEV ICE PROCEDURES Final Result * [place]ICE [place] [facility] [place] 3:35 PM EDT) Date Time Interrogation Session [id number] CV DEVICE CHECK Implantable Pulse Generator [employer] Dispatcher BIO CV DEVICE CHECK Implantable Pulse Generator Type ICD CV DEVICE CHECK Implantable Pulse Generator Model Intica 7 VR-T DX CV DEVICE CHECK Implantable Pulse Generator Serial Number [id number] CV DEVICE CHECK Implantable Pulse Generator Implant Date 20180620 CV DEVICE CHECK Battery Remaining Percentage 41.00 CV DEVICE CHECK Battery Voltage 3.090 CV D EVICE CHECK Battery Status Middle of Service CV DEVICE CHECK Ryan Statistic RV Percent Paced 62.00 CV DEVICE CHECK Atrial Tachy Statistic AT/AF Dolphin Percent 0.00 CV DEVICE CHECK Lead Channel Setting Sensing Sensitivity 0.20 CV DEVICE CHECK Lead Channel Sensing Intrinsic Amplitude 4.100 CV DEVICE CHECK Lead Channel Setting Sensing Sensitivity 0.80 CV DEVICE CHECK Lead Channel Impedance Value 391 CV DEVICE CHECK Lead Channel Pacing Threshold Amplitude 0.900 CV DEVICE CHECK Lead Channel Pacing Threshold Pulse Width 0.4 CV DEVICE CHECK Lead Channel Setting Pacing Amplitude 1.900 CV DEVICE CHECK Lead Channel Setting Pacing Pulse Width 0.4 CV DEVICE CHECK Ryan Setting Mode (NBG Code) VVIR CV DEVICE CHECK Ryan Setting Lower Rate Limit 50 CV DEVICE CHECK Ryan Setting Maximum Sensor Rate 120 CV DEVICE CHECK Therapy Statistic Recent Shocks Delivered 0 CV DEVICE CHECK Therapy Statistic Recent ATP Delivered 0 CV DEVICE CHECK Shock Measured Impedance 75 CV DEVICE CHECK Zone Setting Type Category Zone_VT CV DEVICE CHECK Rate 150 CV DEVICE CHECK Zone Setting Status Monitor CV DEVICE CHECK Zone ID 1 CV DEVICE CHECK Zone Setting Type Category Zone_VF CV DEVICE CHECK Rate 200 CV DEVICE CHECK Therapies Burst, 40J, 40J, 40J x 6 CV DEVICE CHECK Zone Setting Status On CV DEVICE CHECK Zone ID 2 CV DEVICE CHECK Date of Service 2024-05-31 CV DEVICE CHECK Anatomical Region Laterality Modality Device Interroga tion 05/31/2024 Impressions 06/06/2024 10:52 AM EDT Normal In-Office: No Events * Normal Device Function * Alerts or events: No new alerts since last remote session ?? * Battery: Battery is at 41%, 41% * Sensing, impedance and thresholds reviewed and tested * Presenting Rhythm: -CARPENTER ASSEMBLER/VS ??57 bpm * Underlying Rhythm: VS 40s, PVC noted ? * Heart Rate Histograms reviewed * Pacing and Detection Parameters were evaluated Heart Failure Diagnostic: Stable * Heart failure diagnostics assessed through the device * Status: Stable * No overt HF present Narrative Procedure Note Bahman Capps MD - 06/06/2024 IMPRESSION: Normal In-Office: No Events * Normal Device Function * Alerts or events: No new alerts since last remote session * Battery: Battery is at 41%, 41% * Sensing, impedance and thresholds reviewed and tested * Presenting Rhythm: -CARPENTER ASSEMBLER/VS 57 bpm * Underlying Rhythm: VS 40s, PVC noted * Heart Rate Histograms reviewed * Pacing and Detection Parameters were evaluated Heart Failure Diagnostic: Stable * Heart failure diagnostics assessed through the device * Status: Stable * No overt HF present us Order Referral Cardiovascular CV IMPLANTABLE CAR DIAC DEVICE PROCEDURES Final Result * Lipid panel (04/18/2022) Triglycerides 0 mg/dL Comment:no interpretation, a bstracted Cholesterol 0 mg/dL Comment:no interpretation, a bstracted HDL 0 mg/dL Comment:no interpretation, a bstracted LDL Cholesterol 0 mg/dL Comment:no interpretation, a bstracted Blood Venous blood specimen / Unknown [facility] Provider LAB BLOOD ORDERABLES Marjan l Result from Last 3 Months or Most Recently Relevant to Health Maintenance Insurance [facility] RETIREMENT OPTIONS Member Subscriber Plan / Payer (Ef fective 2023-Present) Name:Carlos Angulo Relation to Subscriber:Self Name:Carlos Angulo Payer ID:[id number] Group ID:Not on file Type:Not on file Address: [address] [place] [id number] Advance Directives Documents on File Type Date Recorded Patient Equine Breeder Expl anation Health Care Decision (hx) 10/12/2022 AD GUTHRIE DIRECTIVE Health Care Decision (hx) 10/12/2022 AD GUTHRIE DIRECTIVE Health Care Decision (hx) 10/12/2022 AD GUTHRIE DIRECTIVE Health Care Decision (hx) 10/12/2022 AD GUTHRIE DIRECTIVE Health Care Decision (hx) 10/12/2022 AD GUTHRIE DIRECTIVE Health Care Decision (hx) 10/12/2022 AD GUTHRIE DIRECTIVE Health Care Decision (hx) 10/08/2022 AD GUTHRIE DIRECTIVE Health Care Decision (hx) 10/08/2022 AD GUTHRIE DIRECTIVE Health Care Decision (hx) 10/08/2022 AD GUTHRIE DIRECTIVE Health Care Decision (hx) 10/08/2022 AD GUTHRIE DIRECTIVE Health Care Decision (hx) 10/08/2022 AD GUTHRIE DIRECTIVE Health Care Decision (hx) 10/08/2022 AD GUTHRIE DIRECTIVE * Full Code - Default (Latest Code Status on File) Date Activated Date Inactivated Comments 06/13/2024 11:03 PM 06/15/2024 7:08 PM This is orde r is used when code status has not been discussed with the patient, or code status is otherwise unknown/unconfirmed To update the patient's code status, place a code status order. Do not modify or discontinue any currently active code status orders. Care Teams Plug Saw Operator Relationship Specialty Start Date End Date Arian Arcos MD [address] [place], [place] PCP - General 10/29/22
--- OUTSIDE RECORDS SUMMARY | 2024-06-27 15:46 | XMS_ITS | Encounter Summary ---
Author Organization [facility] Address [address] [place] [address] Care Team Providers Care Desk Pen Set Assembler Name Role Phone Arian Arcos MD Primary Care Provider Encounter Details Date Type Department Care Team (Late Contact Info) Description 12/07/2023 5:16 PM EDT Hospital Encounter TH HISTORIC ENCOUNTERS EASTERN CONVERSION ONLY Arian Arcos MD [address] [place], [place] Social History Tobacco Use Types Packs/Day Years [...] Orientation Straight 06/13/2024 8: 41 PM EDT documented as of this encounter Plan of Treatment Upcoming Encounters Date Type Department Care Team (Late st Contact Info) Description 05/31/2025 3:00 PM EDT Ancillary Procedure [facility] [address] [place] [address] documented as of this encounter Visit Diagnoses Not on filedocumented in this encounter Additional Health Concerns Infection Onset Date Last Indicated Resolved Time Respiratory Rule-Out 06/13/2024 06/13/2024 025 12:03 AM EDT Respiratory Rule-Out 06/14/2024 06/14/2024 025 12:17 PM EDT COVID-19 Rule-Out 06/14/2024 06/14/2024 06/14/2024 12:17 PM EDT documented as of this encounter Care Teams Desk Pen Set Assembler Relationship Specialty Start Date End Date Arian Arcos MD [address] [facility] [address] [place], [place] PCP - General 10/29/22 documented as of this encounter
== END 2024-06-27 14:09 | disposition home or self-care (01) ==
LOC: HO.HKAS 13:21
PROVIDERS: PCP Internal Medicine; Visit Provider Internal Medicine Nephrology
DX: N17.9 Acute kidney failure, unspecified (principal); N18.9 Chronic kidney disease, unspecified; I12.9 Hypertensive chronic kidney disease with stage 1 through stage 4 chronic kidney disease, or unspecified chronic kidney disease; E79.0 Hyperuricemia without signs of inflammatory arthritis and tophaceous disease; N18.32 Chronic kidney disease, stage 3b; D63.1 Anemia in chronic kidney disease
CPT/HCPCS: 99214

== ENCOUNTER → 2024-06-27 13:20 | Outpatient (BNVA) | payer OTHER, SELFPAY | PROVIDERS: PCP Internal Medicine; Visit Provider Internal Medicine Nephrology | DX: I12.9 Hypertensive chronic kidney disease with stage 1 through stage 4 chronic kidney disease, or unspecified chronic kidney disease (principal); I69.398 Other sequelae of cerebral infarction; N18.32 Chronic kidney disease, stage 3b; E79.0 Hyperuricemia without signs of inflammatory arthritis and tophaceous disease; N17.9 Acute kidney failure, unspecified; D63.1 Anemia in chronic kidney disease; Z95.2 Presence of prosthetic heart valve; Z95.1 Presence of aortocoronary bypass graft | CPT/HCPCS: 99212 ==

== ENCOUNTER 2024-07-18 14:00 | Outpatient (REF) | payer OTHER, SELFPAY ==
--- OUTSIDE RECORDS SUMMARY | 2024-07-18 15:11 | XMS_ITS | Encounter Summary ---
Author Organization [facility] Address [address] [facility] [address] [place] [address] Phone Care Team Providers Care Hot Header Operator Name Role Phone Arian Arcos MD Primary Care Provider [phone] Encounter Details Date Type Department Care Team (Late st Contact Info) Description 07/29/2022 Telephone [facility] [address] [place] [address] [place] [address] Kayla De La Torre Social [...] would not relay any further. Please advise. [phone] documented in this encounter Plan of Treatment Not on file documented as of this encounter Visit Diagnoses Not on filedocumented in this encounter Care Teams Hot Header Operator Relationship Specialty Start Date End Date Arian Arcos MD [address] [place] [address] PCP - General Internal Medicine 12/10/22 documented as of this encounter
--- OUTSIDE RECORDS SUMMARY | 2024-07-18 15:11 | XMS_ITS | Clinical Summary ---
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 He has MGUS light chain disease now and is being monitored by chocolate finisher. His renal functions had been stable, his [...] 01/04/2017 06/18/2020 Overview (06/18/2020): [facility]ology Pt is getting bone marrow biopsy done Followed by nephrology. 06/21/18 - cut back Entresto 50%, continue Allopurinol 100 mg daily Bilateral plantar fasciitis 12/17/2016 06/18/2020 Overview (04/19/2020): SEEN BY [facility] Bilateral plantar fasciitis 12/17/2016 06/18/2020 Overview (06/18/2020): SEEN BY [facility] Graves' disease 06/26/2016 06/18/2020 Overview (04/19/2020): Followed by [facility] chronic obstructive pulmonary disease 09/24/2015 06/18/2020 Overview [...] for MVR-tisue and CABG x1/RSVG to PDA [facility] Ischemic cardiomyopathy implant to be done at a later dater Coronary arteriosclerosis 11/23/2012 Overview (04/19/2020): Sees [facility] [place]. Has Cath 2009 60%RCA. RPT echo 08/2016; [facility] 09/04/16 Dilated left ventricle with [...] Patient leaving hospital with Implantable Cardioverter-Defibrillator w/ [place] [facility] follow up in device clinic. 07/13/18 Hyperlipidemia 11/23/2012 06/18/2020 Congestive heart failure 11/23/2012 Immunizations Immunization Administration Dates Next Due [employer] SARS-COV-2 02/15/2021,06/17/2020 Pneumococcal Polysaccharide 07/09/2014 Family History [...] Commercial Medicaid [place] Generic Commercial Care Teams Refrigeration Operator Relationship Specialty Start Date End Date Arian Arcos MD [address] [facility] [address] [place] [address] PCP - General Internal Medicine 12/10/22
--- OUTSIDE RECORDS SUMMARY | 2024-07-18 15:11 | XMS_ITS | Clinical Summary ---
Author Organization [facility] Address [address] [place] [address] Care Team Providers Care Statistical Modeler Name Role Phone Gustabo Dupree MD Primary Care Provider [phone] Allergies No known active allergies Medications Medication [...] age to complete this topic Care Teams Statistical Modeler Relationship Specialty Start Date End Date Gustabo Dupree MD [address] [place] [address] PCP - General Hematology and Oncology 08/31/18
[2024-07-18 18:13] LABS: Hematocrit 36.4 % (42.0-52.0); Hemoglobin 11.5 g/dl (14.0-18.0); Mean Corpuscular HGB Conc 31.6 g/dl (31.0-36.0); Mean Corpuscular Hemoglobin 32.6 pg (27.0-33.0); Mean Corpuscular Volume 103.1 fL (80.0-98.0); Mean Platelet Volume 11.8 fL (9.4-12.4); Platelet Count 143 X10*3/uL (160-400); Red Blood Count 3.53 X10*6/uL (4.60-5.80); Red Cell Distribution Width 15.1 % (11.0-16.0)
[2024-07-18 18:47] LABS: Parathyroid Hormone Intact 232.3 pg/mL (8.7-77.1)
[2024-07-18 18:51] LABS: Anion Gap 16 (12-20); Blood Urea Nitrogen 33 mg/dL (9-16); Calcium 9.3 mg/dL (8.4-10.2); Carbon Dioxide 24 mmol/L (22-29); Chloride 103 mmol/L (96-108); Estimated Glomerular Filt Rate 29; Glucose Random 124 mg/dL (60-115); Potassium 3.5 mmol/L (3.3-5.1); Sodium 139 mmol/L (135-145)
[2024-07-18 19:06] LABS: Uric Acid 11.8 mg/dL (3.4-7.0)
== END 2024-07-18 14:01 | disposition home or self-care (01) ==
LOC: HO.HKASLDS 14:00
PROVIDERS: Visit Provider Internal Medicine Hypertension Specialist
DX: N17.9 Acute kidney failure, unspecified (principal); N18.9 Chronic kidney disease, unspecified
CPT/HCPCS: 36415; 80048; 83970; 84100; 84550; 85027

== ENCOUNTER 2024-07-20 13:49 | Outpatient (REF) | payer OTHER, SELFPAY ==
--- OUTSIDE RECORDS SUMMARY | 2024-07-20 15:44 | XMS_ITS | Clinical Summary ---
Author Organization [facility] Address [address] [place] [address] Care Team Providers Care Confectionery Laboratory Manager Name Role Phone Gustabo Dupree MD Primary Care Provider [phone] Allergies No known active allergies Medications Medication [...] age to complete this topic Care Teams Confectionery Laboratory Manager Relationship Specialty Start Date End Date Gustabo Dupree MD [address] [place] [address] PCP - General Hematology and Oncology 08/31/18
--- OUTSIDE RECORDS SUMMARY | 2024-07-20 15:45 | XMS_ITS | Encounter Summary ---
Author Organization Address [address] [place] [address] Care Team Providers Care Tile Fitter Name Role Phone Arian Arcos MD Primary Care Provider Encounter Details Date Type Department Care Team (Late Contact Info) Description 12/07/2023 5:16 PM EDT Hospital Encounter TH HISTORIC ENCOUNTERS [facility]AST[facility] CONVERSION ONLY Arian Arcos MD [address] [place], [place] Social History Tobacco Use Types Packs/Day [...] Description 05/31/2025 3:00 PM EDT Ancillary Procedure [facility] [address] [place] [address] documented as of this encounter Visit Diagnoses Not on filedocumented in this encounter Additional Health Concerns Infection Onset Date Last Indicated Resolved Time Respiratory Rule-Out 06/13/2024 06/13/2024 025 12:03 AM EDT Respiratory Rule-Out 06/14/2024 06/14/2024 025 12:17 PM EDT COVID-19 Rule-Out 06/14/2024 06/14/2024 06/14/2024 12:17 PM EDT documented as of this encounter Care Teams Tile Fitter Relationship Specialty Start Date End Date Arian Arcos MD [address] [facility] [address] [place], [place] PCP - General 10/29/22 documented as of this encounter
--- OUTSIDE RECORDS SUMMARY | 2024-07-20 15:45 | XMS_ITS | Encounter Summary ---
Author Organization [facility] Address [address] [facility] [address] [place] [address] Phone Care Team Providers Care Roll Or Tape Edge Machine Operator Name Role Phone Arian Arcos MD Primary Care Provider [phone] Encounter Details Date Type Department Care Team (Late st Contact Info) Description 07/29/2022 Telephone [facility] [address] [place] [address] Kayla De La Torre Social [...] would not relay any further. Please advise. [phone] documented in this encounter Plan of Treatment Not on file documented as of this encounter Visit Diagnoses Not on filedocumented in this encounter Care Teams Roll Or Tape Edge Machine Operator Relationship Specialty Start Date End Date Arian Arcos MD [address] [place] [address] PCP - General Internal Medicine 12/10/22 documented as of this encounter
--- OUTSIDE RECORDS SUMMARY | 2024-07-20 15:45 | XMS_ITS | Clinical Summary ---
Author Organization [facility] Address [address] [facility] [address] [place] [address] Phone Care Team Providers Care Assistant Auto Center Manager Name Role Phone Arian Arcos MD Primary Care Provider [phone] Allergies No known active allergies Medications atorvastatin [...] solution 20,000 UnitsIndications:Anemia in chronic kidney disease 07399 Units IJ Every 14 days 04/18/2020 Active [...] Chronic kidney disease 06/18/2014 Overview (04/19/2020): Sees Cooking In[facility] [place] 06/08/17 Has long standing h/o CKD from vascular disease . He has MGUS light chain disease now and is being monitored by code machine operator. His renal functions had been stable, his [...] 01/04/2017 06/18/2020 Overview (06/18/2020): [facility] Onc[facility] Dr Hillman hematology Pt is getting bone marrow biopsy done Followed by nephrology. 06/21/18 - cut back Entresto 50%, continue Allopurinol 100 mg daily Bilateral plantar fasciitis 12/17/2016 06/18/2020 Overview (04/19/2020): SEEN BY [facility] Bilateral plantar fasciitis 12/17/2016 06/18/2020 Overview (06/18/2020): SEEN BY [facility] Graves' disease 06/26/2016 06/18/2020 Overview (04/19/2020): Followed by [facility] chronic obstructive pulmonary disease 09/24/2015 06/18/2020 Overview [...] for MVR-tisue and CABG x1/RSVG to P[facility] Ischemic cardiomyopathy implant to be done at a later dater Coronary arteriosclerosis 11/23/2012 Overview (04/19/2020): Sees [facility] [place]. Has Cath 2009 60%RCA. RPT echo 08/2016; [facility] 09/04/16 Dilated left ventricle with sever [...] Patient leaving hospital with Implantable Cardioverter-Defibrillator w/ [facility] follow up in device clinic. 07/13/18 Hyperlipidemia 11/23/2012 06/18/2020 Congestive heart failure 11/23/2012 Immunizations Immunization Administration Dates Next Due EARTHNET SARS-COV-2 02/15/2021,06/17/2020 Pneumococcal Polysaccharide 07/09/2014 Family History [...] Commercial Medicaid [place] Generic Commercial Care Teams Assistant Auto Center Manager Relationship Specialty Start Date End Date Arian Arcos MD [address] [facility] [address] [place] [address] PCP - General Internal Medicine 12/10/22
--- OUTSIDE RECORDS SUMMARY | 2024-07-20 15:45 | XMS_ITS | Clinical Summary ---
Author Organization [address] [facility] Address [address] [place] [address] Phone Care Team Providers Care Sampler Pickup Name Role Phone Arian Arcos MD Primary [...] (hear t failure with reduced ejection fraction) ([facility] V24, CMS/[facility] V28) 06/13/2024 Ischemic cardiomyopathy 04/01/2021 Anemia in other chronic diseases classified else where 05/14/2020 Dilated cardiomyopathy ([facility]/HCC V24, [facility] V28 ) 05/14/2020 Monoclonal gammopathy 05/14/2020 Renal insufficiency 05/14/2020 Stage 3b chronic kidney disease (CMS/HCC V24, CM S/HCC V28) 05/14/2020 Tricuspid valve insufficiency 05/14/2020 Atrial fibrillation ([facility] V24, [facility] V28) 1 03/31/2019 Encounters Date Type Department Care Team Description 07/13/2024 Telephone [facility] Cardiology [facility] - [address] [place] [address] Sixto Henderson MD Med Refill 06/16/2024 Telephone [facility] - [address] [place] [address] Sixto Henderson MD Medication Concerns (Change in medications ) 06/13/2024 8:08 PM EDT - 06/15/2024 5:03 PM EDT Hospital Encounter [facility] Urology [address] [place] [id number] Chadd Landin MD Millay, Scot A, MD Jones, Christopher, MD Santoyo-Pacheco, Omar D, MD Delirium (Primary Dx) Discharge Disposition: Home-Health Care [facility] 06/09/2024 11:30 PM EDT Ancillary Procedure [facility] Cardiology [facility] [address] [place] [address] 05/31/2024 3:30 PM EDT Ancillary Procedure [facility] - [address] [place] [address] Encounter for adjustment or management of cardiac device 05/24/2024 1:45 PM EDT Lab Draw Station - [address] [facility] [address] [facility] [place] [id number] Ischemic cardiomyopathy 05/24/2024 Telephone [facility] - [address] [place] [address] Sixto Henderson MD Paper work 04/30/2024 8:10 PM EST Ancillary Procedure [facility] Cardiology [facility] - [address] [place] [address] from Last 3 Months Medical History Medical History Date Comments CHF (congestive heart failure) ([facility] V24, [facility] /HCC V28) COPD (chronic obstructive pulmonary disease) [...] Description 05/31/2025 3:00 PM EDT Ancillary Procedure [facility] [address] [facility] [address] [place] [address] Health Maintenance Due Date Last [...] this topic Medical Devices Implanted Type Area Rn Community Health Device Identifier Shelf Expiration Date Model / Serial / Lot Biot-Manu Intica 7 Vr-T Dx [id number] Implanted:06/06 (Quantity not on file) Cardiac ICD [employer] INTICA 7 VR-T DX / [id number] / Procedures Procedure Name Priority Date/Time Associated [...] CULTURE URINE Add-On 06/13/2024 11:08 PM EDT [id number], RSV, FLU A AND B QUALITATIVE RT-PCR, [...] K/mcL LAB HEMETOLOGY METHOD 06/15/2024 7:29 AM [facility] RBC 3.50(L) 4.50 - 5.50 M/mcL LAB HEMETOLOGY METHOD 06/15/2024 7:29 AM [facility] Hemoglobin 11.5(L) 13.5 - 17.5 g/dL LAB HEMETOLOGY METHOD 06/15/2024 7:29 AM [facility] Hematocrit 36.4(L) 42.0 - 54.0 % LAB HEMETOLOGY METHOD 06/15/2024 7:29 AM [facility] MCV 103.7(H) 79.0 - 98.0 FL LAB HEMETOLOGY METHOD 06/15/2024 7:29 AM [facility] MCH 32.8(H) 27.0 - 32.0 pcg LAB HEMETOLOGY METHOD 06/15/2024 7:29 AM [facility] MCHC 31.6(L) 32.0 - 37.0 g/dL LAB HEMETOLOGY METHOD 06/15/2024 7:29 AM [facility] RDW 14.6 11.0 - 15.0 % LAB HEMETOLOGY METHOD 06/15/2024 7:29 AM [facility] Platelets 168 130 - 400 K/mcL LAB HEMETOLOGY METHOD 06/15/2024 7:29 AM [facility] MPV 11.6(H) 7.0 - 11.0 FL LAB HEMETOLOGY METHOD 06/15/2024 7:29 AM [facility] NRBC 0.0 <1.0 % LAB HEMETOLOGY METHOD 06/15/2024 7:29 AM [facility] NRBC Absolute 0.00 <0.10 K/mcL LAB HEMETOLOGY METHOD 06/15/2024 7:29 AM [facility] Neutrophils Relative 51.6 % LAB HEMETOLOGY METHOD 06/15/2024 7:29 AM [facility] Lymphocytes Relative 25.6 % LAB HEMETOLOGY METHOD 06/15/2024 7:29 AM [facility] Monocytes Relative 19.4 % LAB HEMETOLOGY METHOD 06/15/2024 7:29 AM [facility] Eosinophils Relative 1.5 % LAB HEMETOLOGY METHOD 06/15/2024 7:29 AM [facility] Basophils Relative 1.5 % LAB HEMETOLOGY METHOD 06/15/2024 7:29 AM [facility] Immature Granulocytes Relative 0.4 % LAB HEMETOLOGY METHOD 06/15/2024 7:29 AM [facility] Neutrophils Absolute 2.79 1.50 - 7.00 K/mcL LAB HEMETOLOGY METHOD 06/15/2024 7:29 AM [facility] Lymphocytes Absolute 1.38 1.00 - 5.00 K/mcL LAB HEMETOLOGY METHOD 06/15/2024 7:29 AM [facility] Monocytes Absolute 1.05(H) 0.20 - 1.00 K/mcL LAB HEMETOLOGY METHOD 06/15/2024 7:29 AM EDT [facility] Eosinophils Absolute 0.08 0.00 - 0.50 K/mcL LAB HEMETOLOGY METHOD 06/15/2024 7:29 AM EDT [facility] Basophils Absolute 0.08 0.00 - 0.20 K/mcL LAB HEMETOLOGY METHOD 06/15/2024 7:29 AM EDT [facility] Immature Granulocytes Absolute 0.02 0.00 - 0.03 K/mcL LAB HEMETOLOGY METHOD 06/15/2024 7:29 AM [facility] Blood Venous blood specimen / Unknown Venipuncture / Unknown 06/15/2024 6:34 AM EDT 06/15/2024 7:09 AM EDT Mario BARNHART LAB BLOOD ORDERABLES Marjan pino Result [facility] [address] [place] [address], [place] [phone] * (ABNORMAL) Basic metabolic panel (06/15/2024 6:34 AM EDT) Only the most recent of2 resultswithin the time period is included. Sodium 138 133 - 145 mmol/L LAB CHEMISTRY METHOD 06/15/2024 7:41 AM [facility] Potassium 4.0 3.5 - 5.5 mmol/L LAB CHEMISTRY METHOD 06/15/2024 7:41 AM [facility] Chloride 106 96 - 110 mmol/L LAB CHEMISTRY METHOD 06/15/2024 7:41 AM [facility] CO2 24 21 - 32 mmol/L LAB CHEMISTRY METHOD 06/15/2024 7:41 AM [facility] Anion Gap 8 3 - 11 LAB CHEMISTRY METHOD 06/15/2024 7:41 AM [facility] Glucose 121(H) 70 - 100 mg/dL LAB CHEMISTRY METHOD 06/15/2024 7:41 AM EDT [facility] BUN 24 5 - 25 mg/dL LAB CHEMISTRY METHOD 06/15/2024 7:41 AM EDT [facility] Creatinine 2.29(H) 0.70 - 1.30 mg/dL LAB CHEMISTRY METHOD 06/15/2024 7:41 AM EDT [facility] eGFR 28(L) >=60 mL/min/1. 73m2 LAB CHEMISTRY METHOD 06/15/2024 7:41 AM EDT [facility] Comment:Calculation based on the??Chronic Kidney Disease Epidemiology Collaboration (CKD-EPI) equation refit??without adjustment for race. BUN/Creatinine Ratio 10.5 LAB CHEMISTRY METHOD 06/15/2024 7:41 AM EDT [facility] Calcium 9.6 8.5 - 10.5 mg/dL LAB CHEMISTRY METHOD 06/15/2024 7:41 AM EDT [facility] Blood Venous blood specimen / Unknown Venipuncture / Unknown 06/15/2024 6:34 AM EDT 06/15/2024 7:09 AM EDT Mario BARNHART LAB BLOOD ORDERABLES Marjan l Result [facility] [address] [place] [address], * Respiratory virus panel molecular study (06/14/2024 10:41 AM EDT) Adenovirus Detection by PCR Not Detected Not Detected LAB MICROBIOLOGY METHOD 06/14/2024 12:17 PM EDT [facility] Influenza A PCR Not Detected Not Detected LAB MICROBIOLOGY METHOD 06/14/2024 12:17 PM EDT [facility] Influenza B PCR Not Detected Not Detected LAB MICROBIOLOGY METHOD 06/14/2024 12:17 PM EDT [facility] Coronavirus 229E Not Detected Not Detected LAB MICROBIOLOGY METHOD 06/14/2024 12:17 PM EDT [facility] Coronavirus HKU1 Not Detected Not Detected LAB MICROBIOLOGY METHOD 06/14/2024 12:17 PM EDT [facility] Coronavirus OC43 Not Detected Not Detected LAB MICROBIOLOGY METHOD 06/14/2024 12:17 PM EDT [facility] Coronavirus NL63 Not Detected Not Detected LAB MICROBIOLOGY METHOD 06/14/2024 12:17 PM EDT [facility] Parainfluenza Virus 1 Not Detected Not Detected LAB MICROBIOLOGY METHOD 06/14/2024 12:17 PM EDT [facility] Parainfluenza Virus 2 Not Detected Not Detected LAB MICROBIOLOGY METHOD 06/14/2024 12:17 PM EDT [facility] Parainfluenza Virus 3 Not Detected Not Detected LAB MICROBIOLOGY METHOD 06/14/2024 12:17 PM EDT [facility] Parainfluenza Virus 4 Not Detected Not Detected LAB MICROBIOLOGY METHOD 06/14/2024 12:17 PM EDT [facility] RSV PCR Not Detected Not Detected LAB MICROBIOLOGY METHOD 06/14/2024 12:17 PM EDT [facility] Human Metapneumovirus A and B Not Detected Not Detected LAB MICROBIOLOGY METHOD 06/14/2024 12:17 PM EDT [facility] Rhinovirus/Entero virus Not Detected Not Detected LAB MICROBIOLOGY METHOD 06/14/2024 12:17 PM EDT [facility] Bordetella pertussis Not Detected Not Detected LAB MICROBIOLOGY METHOD 06/14/2024 12:17 PM EDT [facility] Bordetella parapertussis Not Detected Not Detected LAB MICROBIOLOGY METHOD 06/14/2024 12:17 PM EDT [facility] Mycoplasma pneumo by PCR Not Detected Not Detected LAB MICROBIOLOGY METHOD 06/14/2024 12:17 PM EDT [facility] Chlamydia pneumoniae Not Detected Not Detected LAB MICROBIOLOGY METHOD 06/14/2024 12:17 PM EDT [facility] SARS COV-2 Not Detected Not Detected LAB MICROBIOLOGY METHOD 06/14/2024 12:17 PM EDT [facility] Swab Nasopharyngeal structure / Unknown Non-blood Collection / Unknown 06/14/2024 10:41 AM EDT 06/14/2024 11:12 AM EDT Narrative [facility] - 06/14/2024 12:17 PM EDT Testing was performed using the [employer] Respiratory Pathogen PCR Assay. All results must [...] MICROBIOLOGY - GENERA L ORDERABLES Final Result [facility] [address] [place] [address], * (ABNORMAL) Troponin I high sensitivity (06/14/2024 5:07 AM EDT) Only the most recent of3 resultswithin the time period is included. High Sensitivity Troponin I 465(HH) <=79 ng/L LAB CHEMISTRY METHOD 06/14/2024 6:14 AM EDT [facility] Blood Venous blood specimen / Unknown Venipuncture / Unknown 06/14/2024 5:07 AM EDT 06/14/2024 5:18 AM EDT Narrative [facility] - 06/14/2024 6:14 AM EDT High levels of biotin in samples may falsely decrease hsTroponin values. ??Use caution when interpreting hsTroponin results in patients taking biotin who exhibit renal impairment (eGFR <60) or in patients taking more than 20 mg/day of biotin. Gogo BARN[facility]ART LAB BLOOD ORDERABLES Final Resu lt Performing Organization Address [facility]/ZIP Co de Phone Number [facility] [address] [place] [address], [place] [phone] * Thyroxine free (06/14/2024 5:07 AM EDT) [facility] Free T4 1.41 0.70 - 1.80 ng/dL LAB CHEMISTRY METHOD 06/14/2024 5:29 PM EDT [facility] Blood Venous blood specimen / Unknown Venipuncture / Unknown 06/14/2024 5:07 AM EDT 06/14/2024 5:18 AM EDT Mario BARNHART LAB BLOOD ORDERABLES Marjan l Result Performing Organization Address [facility] de Phone Number [facility] [address] [place] [address], [place] [phone] * Creatine kinase and CKMB (06/14/2024 5:07 AM EDT) [facility] Total CK 66 22 - 269 unit/L LAB CHEMISTRY METHOD 06/14/2024 8:41 AM EDT [facility] CK-MB 2.4 1.0 - 3.6 ng/mL LAB CHEMISTRY METHOD 06/14/2024 8:41 AM EDT [facility] CK-MB Index 0.0 0.0 - 5.0 LAB CHEMISTRY METHOD 06/14/2024 8:41 AM EDT [facility] Blood Venous blood specimen / Unknown Venipuncture / Unknown 06/14/2024 5:07 AM EDT 06/14/2024 5:18 AM EDT Mario BARNHART LAB BLOOD ORDERABLES Marjan l Result Performing Organization Address City/[facility] Co de Phone Number [facility] [address] [place] [address], [place] [phone] * Blood Culture, Peripheral Draw #1 (06/14/2024 12:50 AM EDT) Only the most recent of2 resultswithin the time period is included. Culture, Blood No growth at 5 days LAB MICROBIOLOGY METHOD 06/19/2024 3:07 AM EDT [facility] Blood Venous blood specimen / Unknown Venipuncture / Unknown 06/14/2024 12:50 AM EDT 06/14/2024 1:10 AM EDT Ggoo BARN[facility] LAB MICROBIOLOGY - GENERAL GURWINDER LARSON Final Result [facility] [address] [place] [address], [place] [phone] * (ABNORMAL) Venous blood gas (06/13/2024 11:31 PM EDT) pH, Landen 7.36 7.32 - 7.42 pH 06/13/2024 11:42 PM EDT [facility] pCO2, Landen 56(H) 41 - 51 mmHg 06/13/2024 11:42 PM EDT [facility] pO2, Landen 27 25 - 40 mmHg 06/13/2024 11:42 PM EDT [facility] HCO3, Venous 27.0(H) 22.0 - 26.0 mmol/L 06/13/2024 11:42 PM EDT [facility] O2 Sat, Landen 30.2 % 06/13/2024 11:42 PM EDT [facility] Base Excess, Landen 4.8(H) -2.0 - 2.0 mmol/L 06/13/2024 11:42 PM EDT [facility] Blood Venous blood specimen / Unknown Venipuncture / Unknown 06/13/2024 11:31 PM EDT 06/13/2024 11:39 PM EDT us Kevon Hassan MD LAB BLOOD ORDERABLES Final Result Performing Organization Address [facility]/ZIP Co de Phone Number [facility] [address] [place] [address], [place] [phone] * Digoxin level (06/13/2024 11:31 PM EDT) [facility] Digoxin Lvl 1.3 0.5 - 2.0 ng/mL LAB CHEMISTRY METHOD 06/14/2024 12:27 AM EDT [facility] Blood Venous blood specimen / Unknown Venipuncture / Unknown 06/13/2024 11:31 PM EDT 06/13/2024 11:39 PM EDT us Kevon Hassan MD LAB BLOOD ORDERABLES Final Result Performing Organization Address [facility]/ZIP Co de Phone Number [facility] [address] [place] [address], [place] [phone] * (ABNORMAL) Urinalysis with reflex microscopic (06/13/2024 11:08 PM EDT) [facility] Specific [place] Urine 1.014 1.003 - 1.030 LAB URINALYSIS - AUTOMATED METHOD 06/13/2024 11:30 PM EDT [facility] pH, Urine 6.0 5.0 - 8.0 pH LAB URINALYSIS - AUTOMATED METHOD 06/13/2024 11:30 PM EDT [facility] Leukocytes, Urine Large(A) Negative LAB URINALYSIS - AUTOMATED METHOD 06/13/2024 11:30 PM EDT [facility] Nitrite, Urine Negative Negative LAB URINALYSIS - AUTOMATED METHOD 06/13/2024 11:30 PM EDT [facility] Protein, Urine 100(A) <=Trace mg/dL LAB URINALYSIS - AUTOMATED METHOD 06/13/2024 11:30 PM [facility] Glucose, Urine 250(A) Negative mg/dL LAB URINALYSIS - AUTOMATED METHOD 06/13/2024 11:30 PM [facility] Ketones, Urine Negative Negative mg/dL LAB URINALYSIS - AUTOMATED METHOD 06/13/2024 11:30 PM [facility] Urobilinogen , Urine 0.2 0.2 - 1.0 mg/dL LAB URINALYSIS - AUTOMATED METHOD 06/13/2024 11:30 PM [facility] Bilirubin, Urine Negative Negative LAB URINALYSIS - AUTOMATED METHOD 06/13/2024 11:30 PM [facility] Blood, Urine Moderate(A) Negative LAB URINALYSIS - AUTOMATED METHOD 06/13/2024 11:30 PM [facility] RBC, Urine 33.2(H) 0 - 4 /HPF LAB URINALYSIS - AUTOMATED METHOD 06/13/2024 11:30 PM [facility] WBC, Urine 1,412.2(H) 0 - 4 /HPF LAB URINALYSIS - AUTOMATED METHOD 06/13/2024 11:30 PM [facility] Squamous Epithelial, Urine 72(H) 0 - 60 /LPF LAB URINALYSIS - AUTOMATED METHOD 06/13/2024 11:30 PM [facility] Bacteria, Urine Many(A) Negative /HPF LAB URINALYSIS - AUTOMATED METHOD 06/13/2024 11:30 PM [facility] Hyaline Casts, Urine 1.5 0 - 3 /LPF LAB URINALYSIS - AUTOMATED METHOD 06/13/2024 11:30 PM [facility] Urine Urine specimen obtained by clean catch procedure / Unknown Non-blood Collection / Unknown 06/13/2024 11:08 PM EDT 06/13/2024 11:21 PM EDT Chadd Landin MD LAB URINE ORDERABLES Final Result Performing Organization Address City/[facility]/ZIP Co de Phone Number [facility] [address] [place] [address], [place] [phone] * Lynn urine culture tube (06/13/2024 11:08 PM EDT) Pathologist [facility] Extra Tube Hold for add-ons. 06/14/2024 1:05 AM EDT [facility] Comment:Auto resulted. Urine Urine specimen obtained by clean catch procedure / Unknown 06/13/2024 11:08 PM EDT 06/13/2024 11:22 PM EDT Kevon Hassan MD LAB URINE ORDERABLES Final Result Performing Organization Address [facility] Co de Phone Number [facility] [address] [place] [address], [place] [phone] * (ABNORMAL) Culture urine (06/13/2024 11:08 PM EDT) Pathologist [facility] Culture, Urine >100,000 CFU/mL Streptococcus beta-hemolytic Group B(A) ABNER 06/17/2024 10:02 AM EDT [facility] Comment: Susceptibility testing is not routinely performed for Beta Streptococcus isolates since these organisms are predictably sensitive to Penicillin. If the Patient is not responding, is allergic to Penicillin, or further therapeutic information is requir ed, please consult an Infectious Disease Specialist. Culture, Urine 10,000-49,000 CFU/mL Enterobacter cloacae complex(A) ABNER 06/17/2024 10:02 AM EDT [facility] Comment: This is an edited result. Previous organism was Gram negative bacilli on 06/16/2024 at 1138 EDT. Urine Urine specimen obtained by clean catch procedure / Unknown 06/13/2024 11:08 PM EDT 06/13/2024 11:22 PM EDT Narrative [facility] - 06/17/2024 10:02 AM EDT [...] MICROBIOLOGY - GEN ERAL ORDERABLES Final Result [facility] [address] [place] [address], * [id number], RSV, Influenza A and B qualitative RT-PCR (06/13/2024 10:41 PM EDT) Pathologist [facility] Influenza A PCR Not Detected Not Detected LAB MICROBIOLOGY METHOD 06/14/2024 12:03 AM EDT [facility] Influenza B PCR Not Detected Not Detected LAB MICROBIOLOGY METHOD 06/14/2024 12:03 AM EDT [facility] RSV PCR Not Detected Not Detected LAB MICROBIOLOGY METHOD 06/14/2024 12:03 AM EDT [facility] SARS COV-2 Not Detected Not Detected LAB MICROBIOLOGY METHOD 06/14/2024 12:03 AM EDT [facility] Swab Both anterior nares / Unknown Non-blood Collection / Unknown 06/13/2024 10:41 PM EDT 06/13/2024 11:22 PM EDT Narrative [facility] - 06/14/2024 12:03 AM EDT Disclaimer: ??Testing was performed using the [employer] GeneXpert Xpress SARS-CoV-2 _Flu_RSV PLUS PCR assay. [...] for Healthcare providers can be found at https://www.fda.gov/media/055356/download. ?? Fact sheet for Healthcare patients can be found at https://www.fda.gov/media/830904/download. us Chadd Landin MD LAB MICROBIOLOGY - GENERAL ORDERABLES Final Result [facility] [address] [place] [address], * ECG 12 lead (06/13/2024 10:09 PM EDT) Only the most recent of2 resultswithin the time period is included. Ventricular Rate ECG 60 BPM GEMUSE Atrial Rate 58 BPM GEMUSE QRS Duration 112 ms GEMUSE Q-T Interval 432 ms GEMUSE QTc 432 ms GEMUSE R [place] -37 degrees GEMUSE T [place] 160 degrees GEMUSE ECG Interpretation Atrial fibrillation with occasional ventricular-pace d complexes and with premature ventricular or aberrantly conducted complexes Left axis deviation Inferior infarct , age undetermined ST and T wave abnormality, consider anterolateral ischemia Abnormal ECG When compared with ECG of 13-JUN-2024 20:27, Vent. rate has increased BY ?? 7 BPM Confirmed by MD Elian [place] ([id number]) on 06/16/2024 12:54:08 AM GEMUSE 06/13/2024 [...] Signed Date: 06/14/2024 11:29 ET Workstation ID: [id number] Transcribed By: Self Edit Transcribed Date: 06/14/2024 [...] Signed Date: 06/14/2024 11:29 ET Workstation ID: [id number] Transcribed By: Self Edit Transcribed Date: 06/14/2024 11:18 ET Kevon Hassan MD IMG XR PROCEDURES Final Res ult * Thyroid stimulating hormone with reflex to free t4 and free t3 (06/13/2024 8:37 PM EDT) Pathologist [facility] TSH 2.37 0.40 - 4.00 mcIU/mL LAB CHEMISTRY METHOD 06/15/2024 2:22 PM EDT [facility] Blood Venous blood specimen / Unknown Venipuncture / Unknown 06/13/2024 8:37 PM EDT 06/13/2024 9:08 PM EDT Kevon Hassan MD LAB BLOOD ORDERABLES Final Result Performing Organization Address City/[facility] Co de Phone Number [facility] [address] [place] [address], * (ABNORMAL) B-type natriuretic peptide (06/13/2024 8:37 PM EDT) Only the most recent of2 resultswithin the time period is included. BNP >5,000(H) <=100 pcg/mL LAB CHEMISTRY METHOD 06/13/2024 9:50 PM EDT [facility] Blood Venous blood specimen / Unknown Venipuncture / Unknown 06/13/2024 8:37 PM EDT 06/13/2024 9:08 PM EDT Chadd Landin MD LAB BLOOD ORDERABLES Final Result Performing Organization Address City/[facility] Co de Phone Number [facility] [address] [place] [address], * Magnesium (06/13/2024 8:37 PM EDT) [facility] Magnesium 2.1 1.9 - 2.6 mg/dL LAB CHEMISTRY METHOD 06/13/2024 9:36 PM EDT [facility] Blood Venous blood specimen / Unknown Venipuncture / Unknown 06/13/2024 8:37 PM EDT 06/13/2024 9:08 PM EDT Chadd Landin MD LAB BLOOD ORDERABLES Final Result Performing Organization Address [facility] de Phone Number [facility] [address] [place] [address], [place] [phone] * Lipase (06/13/2024 8:37 PM EDT) [facility] Lipase 55 13 - 75 unit/L LAB CHEMISTRY METHOD 06/13/2024 9:36 PM EDT [facility] Blood Venous blood specimen / Unknown Venipuncture / Unknown 06/13/2024 8:37 PM EDT 06/13/2024 9:08 PM EDT Chadd Landin MD LAB BLOOD ORDERABLES Final Result Performing Organization Address [facility] de Phone Number [facility] [address] [place] [address], [place] [phone] * (ABNORMAL) Comprehensive metabolic panel (06/13/2024 8:37 PM EDT) Only the most recent of2 resultswithin the time period is included. [facility] Sodium 137 133 - 145 mmol/L LAB CHEMISTRY METHOD 06/13/2024 9:36 PM EDT [facility] Potassium 3.9 3.5 - 5.5 mmol/L LAB CHEMISTRY METHOD 06/13/2024 9:36 PM [facility] Comment:Hemolysis present Chloride 107 96 - 110 mmol/L LAB CHEMISTRY METHOD 06/13/2024 9:36 PM [facility] CO2 25 21 - 32 mmol/L LAB CHEMISTRY METHOD 06/13/2024 9:36 PM [facility] Anion Gap 5 3 - 11 LAB CHEMISTRY METHOD 06/13/2024 9:36 PM [facility] Glucose 130(H) 70 - 100 mg/dL LAB CHEMISTRY METHOD 06/13/2024 9:36 PM [facility] BUN 24 5 - 25 mg/dL LAB CHEMISTRY METHOD 06/13/2024 9:36 PM [facility] Creatinine 2.41(H) 0.70 - 1.30 mg/dL LAB CHEMISTRY METHOD 06/13/2024 9:36 PM [facility] eGFR 27(L) >=60 mL/min/1. 73m2 LAB CHEMISTRY METHOD 06/13/2024 9:36 PM [facility] Comment:Calculation based on the??Chronic Kidney Disease Epidemiology Collaboration (CKD-EPI) equation refit??without adjustment for race. BUN/Creatinine Ratio 10.0 LAB CHEMISTRY METHOD 06/13/2024 9:36 PM [facility] Calcium 9.3 8.5 - 10.5 mg/dL LAB CHEMISTRY METHOD 06/13/2024 9:36 PM [facility] AST (SGOT) 41 10 - 42 unit/L LAB CHEMISTRY METHOD 06/13/2024 9:36 PM [facility] ALT (SGPT) 24 10 - 60 unit/L LAB CHEMISTRY METHOD 06/13/2024 9:36 PM [facility] Alkaline Phosphatase 131(H) 42 - 121 unit/L LAB CHEMISTRY METHOD 06/13/2024 9:36 PM [facility] Total Protein 8.3(H) 6.0 - 8.0 g/dL LAB CHEMISTRY METHOD 06/13/2024 9:36 PM EDT [facility] Albumin 3.0(L) 3.2 - 5.0 g/dL LAB CHEMISTRY METHOD 06/13/2024 9:36 PM EDT [facility] Total Bilirubin 1.2 0.0 - 1.4 mg/dL LAB CHEMISTRY METHOD 06/13/2024 9:36 PM EDT [facility] Blood Venous blood specimen / Unknown Venipuncture / Unknown 06/13/2024 8:37 PM EDT 06/13/2024 9:08 PM EDT us Chadd Landin MD LAB BLOOD ORDERABLES Final Result [facility] [address] [place] [address], * Cardiac device check - Remote- MURJ (06/09/2024 11:29 PM EDT) Only the most recent of2 resultswithin the time period is included. Date Time Interrogation Session [id number] CV DEVICE CHECK Type Interrogation Session RemoteScheduled CV DEVICE CHECK Implantable Pulse Generator [facility] BIO CV DEVICE CHECK Implantable Pulse Generator Type ICD CV DEVICE CHECK Implantable Pulse Generator Model Intica 7 VR-T DX CV DEVICE CHECK Implantable Pulse Generator Serial Number [id number] CV DEVICE CHECK Implantable Pulse Generator Implant Date 20180620 CV DEVICE CHECK Battery Remaining Percentage 49.00 CV DEVICE CHECK Battery Voltage 3.100 CV D EVICE CHECK Battery ELEMENTARY ASSISTANT TEACHER Trigger 2.850 CV DEVICE CHECK Battery Status Middle of Service CV DEVICE CHECK Capacitor Charge Time 11.400 CV DEVICE CHECK Ryan Statistic RV Percent Paced 48.00 CV DEVICE CHECK Atrial Tachy Statistic AT/AF [place] Percent 0.00 CV DEVICE CHECK Lead Channel [...] Result * CARDIAC DEVICE CHECK- [place] [facility]- [facility] (05/31/2024 3:35 PM EDT) Date Time Interrogation Session [id number] CV DEVICE CHECK Implantable Pulse Generator [facility] BIO CV DEVICE CHECK Implantable Pulse Generator Type ICD CV DEVICE CHECK Implantable Pulse Generator Model Intica 7 VR-T DX CV DEVICE CHECK Implantable Pulse Generator Serial Number [id number] CV DEVICE CHECK Implantable Pulse Generator Implant Date 20180620 CV DEVICE CHECK Battery Remaining Percentage 41.00 CV DEVICE CHECK Battery Voltage 3.090 CV D EVICE CHECK Battery Status Middle of Service CV DEVICE CHECK Ryan Statistic RV Percent Paced 62.00 CV DEVICE CHECK Atrial Tachy Statistic AT/AF [place] Percent 0.00 CV DEVICE CHECK Lead Channel [...] thresholds reviewed and tested * Presenting Rhythm: -CUTTING TABLE OPERATOR FIRST/VS ??57 bpm * Underlying Rhythm: VS 40s, [...] thresholds reviewed and tested * Presenting Rhythm: -CUTTING TABLE OPERATOR FIRST/VS 57 bpm * Underlying Rhythm: VS 40s, [...] Most Recently Relevant to Health Maintenance Insurance [employer] Member Subscriber Plan / Payer (Ef fective 2023-Present) Name:Carlos Angulo Relation to Subscriber:Self Name:Carlos Angulo Payer ID:[id number] Group ID:Not on file Type:Not on file Address: [place] [address] [address] [id number] Advance Directives Documents on File Type Date Recorded Patient Industrial Editor Expl anation Health Care Decision (hx) 10/12/2022 [...] currently active code status orders. Care Teams Sampler Pickup Relationship Specialty Start Date End Date Arian Arcos MD [address] [facility] [address] [place], [place] PCP - General 10/29/22
== END 2024-07-20 13:50 | disposition home or self-care (01) ==
LOC: HO.HKASLDS 13:49
PROVIDERS: PCP Internal Medicine; Visit Provider Internal Medicine Nephrology
DX: R30.0 Dysuria (principal); N17.9 Acute kidney failure, unspecified; N18.32 Chronic kidney disease, stage 3b; I10 Essential (primary) hypertension; E79.0 Hyperuricemia without signs of inflammatory arthritis and tophaceous disease
CPT/HCPCS: 87086; 99212

== ENCOUNTER 2024-07-20 13:49 | Outpatient (AMB) | payer OTHER, SELFPAY ==
--- OUTSIDE RECORDS SUMMARY | 2024-07-20 14:30 | XMS_ITS | Encounter Summary ---
Author Organization [facility] Address [address] [place] [address] Care Team Providers Care Qa Specialist Name Role Phone Arian Arcos MD Primary Care Provider [phone] Encounter Details Date Type Department Care Team (Late Contact Info) Description 12/07/2023 5:16 PM EDT Hospital Encounter TH HISTORIC ENCOUNTERS EASTERN CONVERSION ONLY Arian Arcos MD [address] [place], [place] Social History Tobacco Use Types Packs/Day [...] Description 05/31/2025 3:00 PM EDT Ancillary Procedure [facility] [address] [place] [address] documented as of this encounter Visit Diagnoses Not on filedocumented in this encounter Additional Health Concerns Infection Onset Date Last Indicated Resolved Time Respiratory Rule-Out 06/13/2024 06/13/2024 025 12:03 AM EDT Respiratory Rule-Out 06/14/2024 06/14/2024 025 12:17 PM EDT COVID-19 Rule-Out 06/14/2024 06/14/2024 06/14/2024 12:17 PM EDT documented as of this encounter Care Teams Qa Specialist Relationship Specialty Start Date End Date Arian Arcos MD [address] [facility] [address] [place], [place] PCP - General 10/29/22 documented as of this encounter
--- OUTSIDE RECORDS SUMMARY | 2024-07-20 14:30 | XMS_ITS | Encounter Summary ---
Author Organization [facility] Address [address] [facility] [address] [place] [address] Phone Care Team Providers Care Site Operations Manager Name Role Phone Arian Arcos MD Primary Care Provider [phone] Encounter Details Date Type Department Care Team (Late st Contact Info) Description 07/29/2022 Telephone [facility] [address] [place] [address] Kayla De La Torre Social [...] would not relay any further. Please advise. [phone] documented in this encounter Plan of Treatment Not on file documented as of this encounter Visit Diagnoses Not on filedocumented in this encounter Care Teams Site Operations Manager Relationship Specialty Start Date End Date Arian Arcos MD [address] [place] [address] PCP - General Internal Medicine 12/10/22 documented as of this encounter
--- OUTSIDE RECORDS SUMMARY | 2024-07-20 14:30 | XMS_ITS | Clinical Summary ---
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 He has MGUS light chain disease now and is being monitored by director distribution. His renal functions had been stable, his [...] 01/04/2017 06/18/2020 Overview (06/18/2020): [facility] Pt is getting bone marrow biopsy done Followed by nephrology. 06/21/18 - cut back Entresto 50%, continue Allopurinol 100 mg daily Bilateral plantar fasciitis 12/17/2016 06/18/2020 Overview (04/19/2020): SEEN BY [facility] Bilateral plantar fasciitis 12/17/2016 06/18/2020 Overview (06/18/2020): SEEN BY [facility] Graves' disease 06/26/2016 06/18/2020 Overview (04/19/2020): Followed by [facility] chronic obstructive pulmonary disease 09/24/2015 06/18/2020 Overview [...] MVR-tisue and CABG x1/RSVG to PDA [facility] Associates Ischemic cardiomyopathy implant to be done at a later dater Coronary arteriosclerosis 11/23/2012 Overview (04/19/2020): Sees [facility] [place]. Has Cath 2009 60%RCA. RPT echo 08/2016; [facility] 09/04/16 Dilated left ventricle with sever [...] Patient leaving hospital with Implantable Cardioverter-Defibrillator w/ [place] [facility] follow up in device clinic. 07/13/18 Hyperlipidemia 11/23/2012 06/18/2020 Congestive heart failure 11/23/2012 Immunizations Immunization Administration Dates Next Due [employer] SARS-COV-2 02/15/2021,06/17/2020 Pneumococcal Polysaccharide 07/09/2014 Family History [...] Commercial Medicaid [place] Generic Commercial Care Teams Fur Mixer Operator Relationship Specialty Start Date End Date Arian Arcos MD [address] [facility] [address] [place] [address] PCP - General Internal Medicine 12/10/22
--- OUTSIDE RECORDS SUMMARY | 2024-07-20 14:30 | XMS_ITS | Clinical Summary ---
Author Organization [address] [facility] Address [address] [place] [address] Phone Care Team Providers Care Equipment Superintendent Name Role Phone Arian Arcos MD Primary Care Provider [phone] Allergies No known active allergies Medications acetaminophen (TYLENOL) 325 mg tablet Take 2 tablets (650 mg total) by mouth every 4 (four) hours if needed. Active dapagliflozin propanediol (FARXIGA) 10 mg tablet [...] Do not crush, chew, or split. Active metoprolol succinate (TOPROL-XL) 50 mg 24 hr tablet Take 1 tablet (50 mg total) by mouth 1 (one) time each day. Do not crush or chew. 06/20/19 25 Active digoxin (LANOXIN) 125 mcg (0.125 mg) tablet TAKE ONE TABLET BY MOUTH EVERY DAY 30 tablet 6 07/12/19 25 Active spironolactone (ALDACTONE) 25 mg tablet Take 0.5 tablets (12.5 mg total) by mouth 1 (one) time each day. 45 each 1 07/14/19 25 Active digoxin (LANOXIN) 125 mcg (0.125 mg) tablet Take 1 tablet (125 mcg total) by mouth 1 (one) time each day. 12/02/19 24 025 Discontinued cefpodoxime (VANTIN) 200 mg tablet Take 1 tablet (200 mg total) by mouth 2 (two) times a day for 7 days. 14 each 06/16/19 25 025 spironolactone (ALDACTONE) 25 mg tablet Take 0.5 tablets (12.5 mg total) by mouth 1 (one) time each day. 15 each 06/16/19 25 025 Discontinued(Re order) Active Problems Problem Noted Date Diagnosed Date Acute on chronic HFrEF (hear t failure with reduced ejection fraction) ([facility] V24, CMS/[facility] V28) 06/13/2024 Ischemic cardiomyopathy 04/01/2021 Anemia in other chronic diseases classified else where 05/14/2020 Dilated cardiomyopathy ([facility]/HCC V24, [facility] V28 ) 05/14/2020 Monoclonal gammopathy 05/14/2020 Renal insufficiency 05/14/2020 Stage 3b chronic kidney disease (CMS/HCC V24, CM S/HCC V28) 05/14/2020 Tricuspid valve insufficiency 05/14/2020 Atrial fibrillation (CMS/[facility] V24, CMS/[facility] V28) 1 03/31/2019 Encounters Date Type Department Care Team Description 07/13/2024 Telephone [facility] Cardiology [facility] [address] [place] [address] Sixto eHnderson MD Med Refill 06/16/2024 Telephone [facility] - [address] [place] [address] Sixto Henderson MD Medication Concerns (Change in medications ) 06/13/2024 8:08 PM EDT - 06/15/2024 5:03 PM EDT Hospital Encounter [facility] Urology [address] [place] [id number] Chadd Landin MD Millay, Scot A, MD Jones, Christopher, MD Santoyo-Pacheco, Omar D, MD Delirium (Primary Dx) Discharge Disposition: [place] [facility] 06/09/2024 11:30 PM EDT Ancillary Procedure [facility] Cardiology [facility] - [address] [place] [address] 05/31/2024 3:30 PM EDT Ancillary Procedure [facility] - [address] [place] [address] Encounter for adjustment or management of cardiac device 05/24/2024 1:45 PM EDT Lab Draw Station - [address] [facility] [address] [facility] [place] [id number] Ischemic cardiomyopathy 05/24/2024 Telephone [facility] - [address] [place] [address] Sixto Henderson MD Paper work 04/30/2024 8:10 PM EST Ancillary Procedure [facility] Cardiology [facility] [address] [place] [address] from Last 3 Months Medical History Medical History Date Comments CHF (congestive heart failure) ([facility] V24, [facility] /HCC V28) COPD (chronic obstructive pulmonary disease) (CM S/HCC V24, CMS/HCC V28) Renal disorder Social History Tobacco Use [...] Description 05/31/2025 3:00 PM EDT Ancillary Procedure [facility] [address] [facility] [address] [place] [address] Health Maintenance Due Date Last Done Comments DTaP,Tdap,and Td Vaccines (1 - Tdap) 1964 Zoster Vaccines (1 of 2) 1964 Pneumococcal Vaccine: 50+ Years (2 of 2 - PCV) 07/10/2015 07/09/2014 RSV Immunization Adult Patients (1 - 1-dose 75+ series) 2020 Depression Screening 02/14/2022 Hepatitis C Screening 02/14/2022 Medicare Annual Wellness Visit 02/14/2022 Social Influencers of Health Screening 02/14/2022 COVID-19 Vaccine ( season) 2023 02/15/2021, 06/17/2020 [...] this topic Medical Devices Implanted Type Area Prekindergarten Teacher Device Identifier Shelf Expiration Date Model / Serial / Lot Biot-Manu Intica 7 Vr-T Dx [id number] Implanted:06/06 (Quantity not on file) Cardiac ICD [employer] INTICA 7 VR-T DX / [id number] / Procedures Procedure Name Priority Date/Time Associated [...] CULTURE URINE Add-On 06/13/2024 11:08 PM EDT [id number], RSV, FLU A AND B QUALITATIVE RT-PCR, [...] K/mcL LAB HEMETOLOGY METHOD 06/15/2024 7:29 AM [facility] RBC 3.50(L) 4.50 - 5.50 M/mcL LAB HEMETOLOGY METHOD 06/15/2024 7:29 AM [facility] Hemoglobin 11.5(L) 13.5 - 17.5 g/dL LAB HEMETOLOGY METHOD 06/15/2024 7:29 AM [facility] Hematocrit 36.4(L) 42.0 - 54.0 % LAB HEMETOLOGY METHOD 06/15/2024 7:29 AM [facility] MCV 103.7(H) 79.0 - 98.0 FL LAB HEMETOLOGY METHOD 06/15/2024 7:29 AM [facility] MCH 32.8(H) 27.0 - 32.0 pcg LAB HEMETOLOGY METHOD 06/15/2024 7:29 AM [facility] MCHC 31.6(L) 32.0 - 37.0 g/dL LAB HEMETOLOGY METHOD 06/15/2024 7:29 AM [facility] RDW 14.6 11.0 - 15.0 % LAB HEMETOLOGY METHOD 06/15/2024 7:29 AM [facility] Platelets 168 130 - 400 K/mcL LAB HEMETOLOGY METHOD 06/15/2024 7:29 AM [facility] MPV 11.6(H) 7.0 - 11.0 FL LAB HEMETOLOGY METHOD 06/15/2024 7:29 AM [facility] NRBC 0.0 <1.0 % LAB HEMETOLOGY METHOD 06/15/2024 7:29 AM [facility] NRBC Absolute 0.00 <0.10 K/mcL LAB HEMETOLOGY METHOD 06/15/2024 7:29 AM [facility] Neutrophils Relative 51.6 % LAB HEMETOLOGY METHOD 06/15/2024 7:29 AM [facility] Lymphocytes Relative 25.6 % LAB HEMETOLOGY METHOD 06/15/2024 7:29 AM [facility] Monocytes Relative 19.4 % LAB HEMETOLOGY METHOD 06/15/2024 7:29 AM [facility] Eosinophils Relative 1.5 % LAB HEMETOLOGY METHOD 06/15/2024 7:29 AM [facility] Basophils Relative 1.5 % LAB HEMETOLOGY METHOD 06/15/2024 7:29 AM [facility] Immature Granulocytes Relative 0.4 % LAB HEMETOLOGY METHOD 06/15/2024 7:29 AM [facility] Neutrophils Absolute 2.79 1.50 - 7.00 K/mcL LAB HEMETOLOGY METHOD 06/15/2024 7:29 AM [facility] Lymphocytes Absolute 1.38 1.00 - 5.00 K/mcL LAB HEMETOLOGY METHOD 06/15/2024 7:29 AM [facility] Monocytes Absolute 1.05(H) 0.20 - 1.00 K/mcL LAB HEMETOLOGY METHOD 06/15/2024 7:29 AM EDT [facility] Eosinophils Absolute 0.08 0.00 - 0.50 K/mcL LAB HEMETOLOGY METHOD 06/15/2024 7:29 AM EDT [facility] Basophils Absolute 0.08 0.00 - 0.20 K/mcL LAB HEMETOLOGY METHOD 06/15/2024 7:29 AM EDT [facility] Immature Granulocytes Absolute 0.02 0.00 - 0.03 K/mcL LAB HEMETOLOGY METHOD 06/15/2024 7:29 AM [facility] Blood Venous blood specimen / Unknown Venipuncture / Unknown 06/15/2024 6:34 AM EDT 06/15/2024 7:09 AM EDT Mario [facility] LAB BLOOD ORDERABLES Marjan pino Result [facility] [address] [place] [address], [place] [phone] * (ABNORMAL) Basic metabolic panel (06/15/2024 6:34 AM EDT) Only the most recent of2 resultswithin the time period is included. Sodium 138 133 - 145 mmol/L LAB CHEMISTRY METHOD 06/15/2024 7:41 AM [facility] Potassium 4.0 3.5 - 5.5 mmol/L LAB CHEMISTRY METHOD 06/15/2024 7:41 AM [facility] Chloride 106 96 - 110 mmol/L LAB CHEMISTRY METHOD 06/15/2024 7:41 AM [facility] CO2 24 21 - 32 mmol/L LAB CHEMISTRY METHOD 06/15/2024 7:41 AM [facility] Anion Gap 8 3 - 11 LAB CHEMISTRY METHOD 06/15/2024 7:41 AM [facility] Glucose 121(H) 70 - 100 mg/dL LAB CHEMISTRY METHOD 06/15/2024 7:41 AM EDT [facility] BUN 24 5 - 25 mg/dL LAB CHEMISTRY METHOD 06/15/2024 7:41 AM EDT [facility] Creatinine 2.29(H) 0.70 - 1.30 mg/dL LAB CHEMISTRY METHOD 06/15/2024 7:41 AM EDT [facility] eGFR 28(L) >=60 mL/min/1. 73m2 LAB CHEMISTRY METHOD 06/15/2024 7:41 AM EDT [facility] Comment:Calculation based on the??Chronic Kidney Disease Epidemiology Collaboration (CKD-EPI) equation refit??without adjustment for race. BUN/Creatinine Ratio 10.5 LAB CHEMISTRY METHOD 06/15/2024 7:41 AM EDT [facility] Calcium 9.6 8.5 - 10.5 mg/dL LAB CHEMISTRY METHOD 06/15/2024 7:41 AM EDT [facility] Blood Venous blood specimen / Unknown Venipuncture / Unknown 06/15/2024 6:34 AM EDT 06/15/2024 7:09 AM EDT Mario [facility] LAB BLOOD ORDERABLES Marjan l Result [facility] [address] [place] [address], * Respiratory virus panel molecular study (06/14/2024 10:41 AM EDT) Adenovirus Detection by PCR Not Detected Not Detected LAB MICROBIOLOGY METHOD 06/14/2024 12:17 PM EDT [facility] Influenza A PCR Not Detected Not Detected LAB MICROBIOLOGY METHOD 06/14/2024 12:17 PM EDT [facility] Influenza B PCR Not Detected Not Detected LAB MICROBIOLOGY METHOD 06/14/2024 12:17 PM EDT [facility] Coronavirus 229E Not Detected Not Detected LAB MICROBIOLOGY METHOD 06/14/2024 12:17 PM EDT [facility] Coronavirus HKU1 Not Detected Not Detected LAB MICROBIOLOGY METHOD 06/14/2024 12:17 PM EDT [facility] Coronavirus OC43 Not Detected Not Detected LAB MICROBIOLOGY METHOD 06/14/2024 12:17 PM EDT [facility] Coronavirus NL63 Not Detected Not Detected LAB MICROBIOLOGY METHOD 06/14/2024 12:17 PM EDT [facility] Parainfluenza Virus 1 Not Detected Not Detected LAB MICROBIOLOGY METHOD 06/14/2024 12:17 PM EDT [facility] Parainfluenza Virus 2 Not Detected Not Detected LAB MICROBIOLOGY METHOD 06/14/2024 12:17 PM EDT [facility] Parainfluenza Virus 3 Not Detected Not Detected LAB MICROBIOLOGY METHOD 06/14/2024 12:17 PM EDT [facility] Parainfluenza Virus 4 Not Detected Not Detected LAB MICROBIOLOGY METHOD 06/14/2024 12:17 PM EDT [facility] RSV PCR Not Detected Not Detected LAB MICROBIOLOGY METHOD 06/14/2024 12:17 PM EDT [facility] Human Metapneumovirus A and B Not Detected Not Detected LAB MICROBIOLOGY METHOD 06/14/2024 12:17 PM EDT [facility] Rhinovirus/Entero virus Not Detected Not Detected LAB MICROBIOLOGY METHOD 06/14/2024 12:17 PM EDT [facility] Bordetella pertussis Not Detected Not Detected LAB MICROBIOLOGY METHOD 06/14/2024 12:17 PM EDT [facility] Bordetella parapertussis Not Detected Not Detected LAB MICROBIOLOGY METHOD 06/14/2024 12:17 PM EDT [facility] Mycoplasma pneumo by PCR Not Detected Not Detected LAB MICROBIOLOGY METHOD 06/14/2024 12:17 PM EDT [facility] Chlamydia pneumoniae Not Detected Not Detected LAB MICROBIOLOGY METHOD 06/14/2024 12:17 PM EDT [facility] SARS COV-2 Not Detected Not Detected LAB MICROBIOLOGY METHOD 06/14/2024 12:17 PM EDT [facility] Swab Nasopharyngeal structure / Unknown Non-blood Collection / Unknown 06/14/2024 10:41 AM EDT 06/14/2024 11:12 AM EDT Narrative [facility] - 06/14/2024 12:17 PM EDT Testing was performed using the [employer] Respiratory Pathogen PCR Assay. All results must [...] MICROBIOLOGY - GENERA L ORDERABLES Final Result [facility] [address] [place] [address], * (ABNORMAL) Troponin I high sensitivity (06/14/2024 5:07 AM EDT) Only the most recent of3 resultswithin the time period is included. High Sensitivity Troponin I 465(HH) <=79 ng/L LAB CHEMISTRY METHOD 06/14/2024 6:14 AM EDT [facility] Blood Venous blood specimen / Unknown Venipuncture / Unknown 06/14/2024 5:07 AM EDT 06/14/2024 5:18 AM EDT Narrative [facility] - 06/14/2024 6:14 AM EDT High levels of biotin in samples may falsely decrease hsTroponin values. ??Use caution when interpreting hsTroponin results in patients taking biotin who exhibit renal impairment (eGFR <60) or in patients taking more than 20 mg/day of biotin. Gogo [facility] LAB BLOOD ORDERABLES Final Resu lt Performing Organization Address [facility]/ZIP Co de Phone Number [facility] [address] [place] [address], [place] [phone] * Thyroxine free (06/14/2024 5:07 AM EDT) [facility] Free T4 1.41 0.70 - 1.80 ng/dL LAB CHEMISTRY METHOD 06/14/2024 5:29 PM EDT [facility] Blood Venous blood specimen / Unknown Venipuncture / Unknown 06/14/2024 5:07 AM EDT 06/14/2024 5:18 AM EDT Mario [facility]ARN[facility] LAB BLOOD ORDERABLES Marjan l Result Performing Organization Address [facility] de Phone Number [facility] [address] [place] [address], [place] [phone] * Creatine kinase and CKMB (06/14/2024 5:07 AM EDT) [facility] Total CK 66 22 - 269 unit/L LAB CHEMISTRY METHOD 06/14/2024 8:41 AM EDT [facility] CK-MB 2.4 1.0 - 3.6 ng/mL LAB CHEMISTRY METHOD 06/14/2024 8:41 AM EDT [facility] CK-MB Index 0.0 0.0 - 5.0 LAB CHEMISTRY METHOD 06/14/2024 8:41 AM EDT [facility] Blood Venous blood specimen / Unknown Venipuncture / Unknown 06/14/2024 5:07 AM EDT 06/14/2024 5:18 AM EDT Mario [facility]ARN[facility] LAB BLOOD ORDERABLES Marjan l Result Performing Organization Address City/[facility] Co de Phone Number [facility] [address] [place] [address], [place] [phone] * Blood Culture, Peripheral Draw #1 (06/14/2024 12:50 AM EDT) Only the most recent of2 resultswithin the time period is included. Culture, Blood No growth at 5 days LAB MICROBIOLOGY METHOD 06/19/2024 3:07 AM EDT [facility] Blood Venous blood specimen / Unknown Venipuncture / Unknown 06/14/2024 12:50 AM EDT 06/14/2024 1:10 AM EDT Gogo [facility] LAB MICROBIOLOGY - GENERAL GURWINDER LARSON Final Result [facility] [address] [place] [address], [place] [phone] * (ABNORMAL) Venous blood gas (06/13/2024 11:31 PM EDT) pH, Landen 7.36 7.32 - 7.42 pH 06/13/2024 11:42 PM EDT [facility] pCO2, Landen 56(H) 41 - 51 mmHg 06/13/2024 11:42 PM EDT [facility] pO2, Landen 27 25 - 40 mmHg 06/13/2024 11:42 PM EDT [facility] HCO3, Venous 27.0(H) 22.0 - 26.0 mmol/L 06/13/2024 11:42 PM EDT [facility] O2 Sat, Landen 30.2 % 06/13/2024 11:42 PM EDT [facility] Base Excess, Landen 4.8(H) -2.0 - 2.0 mmol/L 06/13/2024 11:42 PM EDT [facility] Blood Venous blood specimen / Unknown Venipuncture / Unknown 06/13/2024 11:31 PM EDT 06/13/2024 11:39 PM EDT us Kevon Hassan MD LAB BLOOD ORDERABLES Final Result Performing Organization Address [facility]/ZIP Co de Phone Number [facility] [address] [place] [address], [place] [phone] * Digoxin level (06/13/2024 11:31 PM EDT) [facility] Digoxin Lvl 1.3 0.5 - 2.0 ng/mL LAB CHEMISTRY METHOD 06/14/2024 12:27 AM EDT [facility] Blood Venous blood specimen / Unknown Venipuncture / Unknown 06/13/2024 11:31 PM EDT 06/13/2024 11:39 PM EDT us Kevon Hassan MD LAB BLOOD ORDERABLES Final Result Performing Organization Address [facility]/ZIP Co de Phone Number [facility] [address] [place] [address], [place] [phone] * (ABNORMAL) Urinalysis with reflex microscopic (06/13/2024 11:08 PM EDT) [facility] Specific Lapel Urine 1.014 1.003 - 1.030 LAB URINALYSIS - AUTOMATED METHOD 06/13/2024 11:30 PM EDT [facility] pH, Urine 6.0 5.0 - 8.0 pH LAB URINALYSIS - AUTOMATED METHOD 06/13/2024 11:30 PM EDT [facility] Leukocytes, Urine Large(A) Negative LAB URINALYSIS - AUTOMATED METHOD 06/13/2024 11:30 PM EDT [facility] Nitrite, Urine Negative Negative LAB URINALYSIS - AUTOMATED METHOD 06/13/2024 11:30 PM EDT [facility] Protein, Urine 100(A) <=Trace mg/dL LAB URINALYSIS - AUTOMATED METHOD 06/13/2024 11:30 PM [facility] Glucose, Urine 250(A) Negative mg/dL LAB URINALYSIS - AUTOMATED METHOD 06/13/2024 11:30 PM [facility] Ketones, Urine Negative Negative mg/dL LAB URINALYSIS - AUTOMATED METHOD 06/13/2024 11:30 PM [facility] Urobilinogen , Urine 0.2 0.2 - 1.0 mg/dL LAB URINALYSIS - AUTOMATED METHOD 06/13/2024 11:30 PM [facility] Bilirubin, Urine Negative Negative LAB URINALYSIS - AUTOMATED METHOD 06/13/2024 11:30 PM [facility] Blood, Urine Moderate(A) Negative LAB URINALYSIS - AUTOMATED METHOD 06/13/2024 11:30 PM [facility] RBC, Urine 33.2(H) 0 - 4 /HPF LAB URINALYSIS - AUTOMATED METHOD 06/13/2024 11:30 PM [facility] WBC, Urine 1,412.2(H) 0 - 4 /HPF LAB URINALYSIS - AUTOMATED METHOD 06/13/2024 11:30 PM [facility] Squamous Epithelial, Urine 72(H) 0 - 60 /LPF LAB URINALYSIS - AUTOMATED METHOD 06/13/2024 11:30 PM [facility] Bacteria, Urine Many(A) Negative /HPF LAB URINALYSIS - AUTOMATED METHOD 06/13/2024 11:30 PM [facility] Hyaline Casts, Urine 1.5 0 - 3 /LPF LAB URINALYSIS - AUTOMATED METHOD 06/13/2024 11:30 PM [facility] Urine Urine specimen obtained by clean catch procedure / Unknown Non-blood Collection / Unknown 06/13/2024 11:08 PM EDT 06/13/2024 11:21 PM EDT Chadd Landin MD LAB URINE ORDERABLES Final Result Performing Organization Address City/[facility]/ZIP Co de Phone Number [facility] [address] [place] [address], [place] [phone] * Lynn urine culture tube (06/13/2024 11:08 PM EDT) Pathologist [facility] Extra Tube Hold for add-ons. 06/14/2024 1:05 AM EDT [facility] Comment:Auto resulted. Urine Urine specimen obtained by clean catch procedure / Unknown 06/13/2024 11:08 PM EDT 06/13/2024 11:22 PM EDT Kevon Hassan MD LAB URINE ORDERABLES Final Result Performing Organization Address [facility] Co de Phone Number [facility] [address] [place] [address], [place] [phone] * (ABNORMAL) Culture urine (06/13/2024 11:08 PM EDT) Pathologist [facility] Culture, Urine >100,000 CFU/mL Streptococcus beta-hemolytic Group B(A) ABNER 06/17/2024 10:02 AM EDT [facility] Comment: Susceptibility testing is not routinely performed for Beta Streptococcus isolates since these organisms are predictably sensitive to Penicillin. If the Patient is not responding, is allergic to Penicillin, or further therapeutic information is requir ed, please consult an Infectious Disease Specialist. Culture, Urine 10,000-49,000 CFU/mL Enterobacter cloacae complex(A) ABNER 06/17/2024 10:02 AM EDT [facility] Comment: This is an edited result. Previous organism was Gram negative bacilli on 06/16/2024 at 1138 EDT. Urine Urine specimen obtained by clean catch procedure / Unknown 06/13/2024 11:08 PM EDT 06/13/2024 11:22 PM EDT Narrative [facility] - 06/17/2024 10:02 AM EDT Additional [...] complex Trimethoprim/Sulfamethoxazo le ABNER <=20 ug/ml: Susceptible us Akin Maguire MD LAB MICROBIOLOGY - GEN ERAL ORDERABLES Final Result [facility] [address] [place] [address], * [id number], RSV, Influenza A and B qualitative RT-PCR (06/13/2024 10:41 PM EDT) Pathologist [facility] Influenza A PCR Not Detected Not Detected LAB MICROBIOLOGY METHOD 06/14/2024 12:03 AM EDT [facility] Influenza B PCR Not Detected Not Detected LAB MICROBIOLOGY METHOD 06/14/2024 12:03 AM EDT [facility] RSV PCR Not Detected Not Detected LAB MICROBIOLOGY METHOD 06/14/2024 12:03 AM EDT [facility] SARS COV-2 Not Detected Not Detected LAB MICROBIOLOGY METHOD 06/14/2024 12:03 AM EDT [facility] Swab Both anterior nares / Unknown Non-blood Collection / Unknown 06/13/2024 10:41 PM EDT 06/13/2024 11:22 PM EDT [facility] - 06/14/2024 12:03 AM EDT Disclaimer: ??Testing was performed using the [employer] GeneXpert Xpress SARS-CoV-2 _Flu_RSV PLUS PCR assay. [...] for Healthcare providers can be found at https://www.fda.gov/media/546746/download. ?? Fact sheet for Healthcare patients can be found at https://www.fda.gov/media/696175/download. us Chadd Landin MD LAB MICROBIOLOGY - GENERAL ORDERABLES Final Result [facility] [address] [place] [address], * ECG 12 lead (06/13/2024 10:09 PM EDT) Only the most recent of2 resultswithin the time period is included. Ventricular Rate ECG 60 BPM GEMUSE Atrial Rate 58 BPM GEMUSE QRS Duration 112 ms GEMUSE Q-T Interval 432 ms GEMUSE QTc 432 ms GEMUSE R [place] -37 degrees GEMUSE T [place] 160 degrees GEMUSE ECG Interpretation Atrial fibrillation with occasional ventricular-pace d complexes and with premature ventricular or aberrantly conducted complexes Left axis deviation Inferior infarct , age undetermined ST and T wave abnormality, consider anterolateral ischemia Abnormal ECG When compared with ECG of 13-JUN-2024 20:27, Vent. rate has increased BY ?? 7 BPM Confirmed by MD Elian [place] ([id number]) on 06/16/2024 12:54:08 AM GEMUSE 06/13/2024 [...] Signed Date: 06/14/2024 11:29 ET Workstation ID: [id number] Transcribed By: Self Edit Transcribed Date: 06/14/2024 [...] Signed Date: 06/14/2024 11:29 ET Workstation ID: [id number] Transcribed By: Self Edit Transcribed Date: 06/14/2024 11:18 ET Kevon Hassan MD IMG XR PROCEDURES Final Res ult * Thyroid stimulating hormone with reflex to free t4 and free t3 (06/13/2024 8:37 PM EDT) Pathologist [facility] TSH 2.37 0.40 - 4.00 mcIU/mL LAB CHEMISTRY METHOD 06/15/2024 2:22 PM EDT [facility] Blood Venous blood specimen / Unknown Venipuncture / Unknown 06/13/2024 8:37 PM EDT 06/13/2024 9:08 PM EDT Kevon Hassan MD LAB BLOOD ORDERABLES Final Result Performing Organization Address City/[facility] Co de Phone Number [facility] [address] [place] [address], * (ABNORMAL) B-type natriuretic peptide (06/13/2024 8:37 PM EDT) Only the most recent of2 resultswithin the time period is included. BNP >5,000(H) <=100 pcg/mL LAB CHEMISTRY METHOD 06/13/2024 9:50 PM EDT [facility] Blood Venous blood specimen / Unknown Venipuncture / Unknown 06/13/2024 8:37 PM EDT 06/13/2024 9:08 PM EDT Chadd Landin MD LAB BLOOD ORDERABLES Final Result Performing Organization Address City/[facility] Co de Phone Number [facility] [address] [place] [address], * Magnesium (06/13/2024 8:37 PM EDT) [facility] Magnesium 2.1 1.9 - 2.6 mg/dL LAB CHEMISTRY METHOD 06/13/2024 9:36 PM EDT [facility] Blood Venous blood specimen / Unknown Venipuncture / Unknown 06/13/2024 8:37 PM EDT 06/13/2024 9:08 PM EDT Chadd Landin MD LAB BLOOD ORDERABLES Final Result Performing Organization Address [facility] de Phone Number [facility] [address] [place] [address], [place] [phone] * Lipase (06/13/2024 8:37 PM EDT) [facility] Lipase 55 13 - 75 unit/L LAB CHEMISTRY METHOD 06/13/2024 9:36 PM EDT [facility] Blood Venous blood specimen / Unknown Venipuncture / Unknown 06/13/2024 8:37 PM EDT 06/13/2024 9:08 PM EDT Chadd Landin MD LAB BLOOD ORDERABLES Final Result Performing Organization Address [facility] de Phone Number [facility] [address] [place] [address], [place] [phone] * (ABNORMAL) Comprehensive metabolic panel (06/13/2024 8:37 PM EDT) Only the most recent of2 resultswithin the time period is included. [facility] Sodium 137 133 - 145 mmol/L LAB CHEMISTRY METHOD 06/13/2024 9:36 PM EDT [facility] Potassium 3.9 3.5 - 5.5 mmol/L LAB CHEMISTRY METHOD 06/13/2024 9:36 PM [facility] Comment:Hemolysis present Chloride 107 96 - 110 mmol/L LAB CHEMISTRY METHOD 06/13/2024 9:36 PM [facility] CO2 25 21 - 32 mmol/L LAB CHEMISTRY METHOD 06/13/2024 9:36 PM [facility] Anion Gap 5 3 - 11 LAB CHEMISTRY METHOD 06/13/2024 9:36 PM [facility] Glucose 130(H) 70 - 100 mg/dL LAB CHEMISTRY METHOD 06/13/2024 9:36 PM [facility] BUN 24 5 - 25 mg/dL LAB CHEMISTRY METHOD 06/13/2024 9:36 PM [facility] Creatinine 2.41(H) 0.70 - 1.30 mg/dL LAB CHEMISTRY METHOD 06/13/2024 9:36 PM [facility] eGFR 27(L) >=60 mL/min/1. 73m2 LAB CHEMISTRY METHOD 06/13/2024 9:36 PM [facility] Comment:Calculation based on the??Chronic Kidney Disease Epidemiology Collaboration (CKD-EPI) equation refit??without adjustment for race. BUN/Creatinine Ratio 10.0 LAB CHEMISTRY METHOD 06/13/2024 9:36 PM [facility] Calcium 9.3 8.5 - 10.5 mg/dL LAB CHEMISTRY METHOD 06/13/2024 9:36 PM [facility] AST (SGOT) 41 10 - 42 unit/L LAB CHEMISTRY METHOD 06/13/2024 9:36 PM [facility] ALT (SGPT) 24 10 - 60 unit/L LAB CHEMISTRY METHOD 06/13/2024 9:36 PM [facility] Alkaline Phosphatase 131(H) 42 - 121 unit/L LAB CHEMISTRY METHOD 06/13/2024 9:36 PM [facility] Total Protein 8.3(H) 6.0 - 8.0 g/dL LAB CHEMISTRY METHOD 06/13/2024 9:36 PM EDT [facility] Albumin 3.0(L) 3.2 - 5.0 g/dL LAB CHEMISTRY METHOD 06/13/2024 9:36 PM EDT [facility] Total Bilirubin 1.2 0.0 - 1.4 mg/dL LAB CHEMISTRY METHOD 06/13/2024 9:36 PM EDT [facility] Blood Venous blood specimen / Unknown Venipuncture / Unknown 06/13/2024 8:37 PM EDT 06/13/2024 9:08 PM EDT us Chadd Landin MD LAB BLOOD ORDERABLES Final Result [facility] [address] [place] [address], * Cardiac device check - Remote- MURJ (06/09/2024 11:29 PM EDT) Only the most recent of2 resultswithin the time period is included. Date Time Interrogation Session [id number] CV DEVICE CHECK Type Interrogation Session RemoteScheduled CV DEVICE CHECK Implantable Pulse Generator Prekindergarten Teacher BIO CV DEVICE CHECK Implantable Pulse Generator Type ICD CV DEVICE CHECK Implantable Pulse Generator Model Intica 7 VR-T DX CV DEVICE CHECK Implantable Pulse Generator Serial Number [id number] CV DEVICE CHECK Implantable Pulse Generator Implant Date 20180620 CV DEVICE CHECK Battery Remaining Percentage 49.00 CV DEVICE CHECK Battery Voltage 3.100 CV D EVICE CHECK Battery SENIOR DB2 SYSTEMS PROGRAMMER Trigger 2.850 CV DEVICE CHECK Battery Status Middle of Service CV DEVICE CHECK Capacitor Charge Time 11.400 CV DEVICE CHECK Ryan Statistic RV Percent Paced 48.00 CV DEVICE CHECK Atrial Tachy Statistic AT/AF [place] Percent 0.00 CV DEVICE CHECK Lead Channel [...] 3:35 PM EDT) Date Time Interrogation Session [id number] CV DEVICE CHECK Implantable Pulse Generator Prekindergarten Teacher BIO CV DEVICE CHECK Implantable Pulse Generator Type ICD CV DEVICE CHECK Implantable Pulse Generator Model Intica 7 VR-T DX CV DEVICE CHECK Implantable Pulse Generator Serial Number [id number] CV DEVICE CHECK Implantable Pulse Generator Implant Date 20180620 CV DEVICE CHECK Battery Remaining Percentage 41.00 CV DEVICE CHECK Battery Voltage 3.090 CV D EVICE CHECK Battery Status Middle of Service CV DEVICE CHECK Ryan Statistic RV Percent Paced 62.00 CV DEVICE CHECK Atrial Tachy Statistic AT/AF [place] Percent 0.00 CV DEVICE CHECK Lead Channel [...] thresholds reviewed and tested * Presenting Rhythm: -COTTON CANDY MAKER/VS ??57 bpm * Underlying Rhythm: VS 40s, [...] thresholds reviewed and tested * Presenting Rhythm: -COTTON CANDY MAKER/VS 57 bpm * Underlying Rhythm: VS 40s, [...] bstracted Blood Venous blood specimen / Unknown Historical Provider LAB BLOOD ORDERABLES Marjan l Result from Last 3 Months or Most Recently Relevant to Health Maintenance Insurance [facility] [employer] Member Subscriber Plan / Payer (Ef fective 2023-Present) Name:Carlos Angulo Relation to Subscriber:Self Name:Carlos Angulo Payer ID:[id number] Group ID:Not on file Type:Not on file Address: [place] [address] [id number] Advance Directives Documents on File Type Date Recorded Patient Siderographist Expl anation Health Care Decision (hx) 10/12/2022 [...] currently active code status orders. Care Teams Equipment Superintendent Relationship Specialty Start Date End Date Arian Arcos MD [address] [facility] [address] [place], [place] PCP - General 10/29/22
--- OUTSIDE RECORDS SUMMARY | 2024-07-20 14:30 | XMS_ITS | Clinical Summary ---
Author Organization [facility] Address [address] [place] [address] Care Team Providers Care Rfid Systems Engineer Name Role Phone Gustabo Dupree MD Primary Care Provider [phone] Allergies No known active allergies Medications Medication [...] age to complete this topic Care Teams Rfid Systems Engineer Relationship Specialty Start Date End Date Gustabo Dupree MD [address] [place] [address] PCP - General Hematology and Oncology 08/31/18
[2024-07-20 14:37] VITALS: BP 134/70; PULSE 50; O2SAT 97
--- NOTE | 2024-07-20 14:37 | HO.NEPHOV_ITS ---
Vital Signs 07/20/24 14:37 Height 5 ft 4 in BP 134/70 Blood Pressure Location Lt brachial Position Sitting Pulse 50 Pulse Source Pulse Oximeter Pulse Oximetry (%) 97 Oxygen Delivery Method Room Air Intake Visit Reasons: 2wk [id number] Church Musician Required: No Accompanied by: Spouse Allergies No Known Allergies Allergy (Verified 07/20/24 14:37) HPI Comments Details: 79 yo gentleman with complex medical issues including CAD s/p CABG with bioprosthetic mitral valve replacement, dilated cardiomyopathy with EF of 30 to 35% s/p AICD in place, CKD 3 B, Graves' disease, COPD, previous MCA stroke with left-sided deficits, who had a prolonged hospitalization 2022 for bilateral angioplasty and left external iliac stent placement and right lower extremity fasciotomy with wound injury. He recently was hospitalized with SOB. He was diagnosed with UTI and was treated with antibiotics. He also had GLO at that time. He continues to have shortness of breath and edema. He has poor appetite. He denies nausea, vomiting, fever, chills, diarrhea. He does not take any nonsteroidal anti-inflammatory use and is compliant with medications. His is doing the very best to help him improve out of his current clinical status. [facility] Medical History (Updated 07/20/24 @ 15:02 by Jonathan Isidro MD) MGUS (monoclonal gammopathy of unknown significance) Iron deficiency Anemia Hyperuricemia Hypertension CKD (chronic kidney disease), stage III Surgical History History of surgery on lower extremity Social History Alcohol intake: current Comment: Occasional Patient Tobacco Use Status: Former Tobacco user Review of Systems Const All systems reviewed & are unremarkable except as noted in HPI and below Physical Exam Vital Signs: Last Vital Signs Pulse 50 07/20/24 14:37 BP 134/70 07/20/24 14:37 Pulse Ox 97 07/20/24 14:37 Oxygen Delivery Method Room Air 07/20/24 14:37 Const General: comfortable and no acute distress Orientation/consciousness: patient oriented x3 HEENT Head: Yes normocephalic Mouth: Normal oral and palatal mucosa present Eyes EOM: EOMs intact bilaterally Neck Neck: Yes supple Resp Auscultation: clear to auscultation bilaterally Cardio Jugular venous distension: no JVD Rate: regular rate GI Palpation (GI): Soft to palpation Auscultation: normal bowel sounds General: Yes no CVA tenderness Back/Spine/Pelvis Back: no CVA tenderness Skin General skin exam: no rashes or lesions noted Neuro General: patient oriented x3 and moves all extremities Extrem General: Yes edema Results Reviewed Nephrology Results: Hgb 11.5 g/dl (14.0-18.0) L 07/18/24 WBC 5.0 X10*3/uL (4.8-10.8) 07/18/24 Plt Count 143 X10*3/uL (160-400) L 07/18/24 Sodium 139 mmol/L (135-145) 07/18/24 Potassium 3.5 mmol/L (3.3-5.1) 07/18/24 Chloride 103 mmol/L (96-108) 07/18/24 Carbon Dioxide 24 mmol/L (22-29) 07/18/24 BUN 33 mg/dL (9-16) H 07/18/24 Creatinine 2.23 mg/dL (0.5-1.4) H 07/18/24 Calcium 9.3 mg/dL (8.4-10.2) 07/18/24 Phosphorus 3.0 mg/dL (2.7-4.5) 07/18/24 PTH Intact 232.3 pg/mL (8.7-77.1) H 07/18/24 Assessment & Plan Assessment & Plan (1) Acute kidney injury superimposed on chronic kidney disease: Code(s): N17.9 - Acute kidney failure, unspecified; N18.9 - Chronic kidney disease, unspecified Category: Medical (2) Hypertension: Code(s): I10 - Essential (primary) hypertension Category: Medical Qualifiers: Hypertension type: primary hypertension Qualified Code(s): I10 - Essential (primary) hypertension (3) CKD (chronic kidney disease), stage III: Code(s): N18.30 - Chronic kidney disease, stage 3 unspecified Category: Medical Qualifiers: Chronic kidney disease stage 3 subtype: stage 3b (GFR 30-44) Qualified Code(s): N18.32 - Chronic kidney disease, stage 3b (4) Dysuria: Code(s): R30.0 - Dysuria Category: Medical Plan Carlos is known to have chronic kidney disease stage IIIB at baseline. He had multiple AKIs during his multiple prolonged hospitalizations . Recently he had GLO due to HF exacerbation as well as possible UTI. I held his Entresto and kept him on lasix. He still is hypervolemic. I increased his lasix to 80 mg AM and 40 mg PM. I shall restart entresto when his GLO is improved. He can continue his iron tablets three times a day. He needs agressive physical therapy. I ordered repeat urine culture. All these have been discussed in extensive detail. I gave him the opportunity to ask questions which I answered to their satisfaction. Follow-up labs ordered and F/U given Orders: Orders Creatinine 3 Weeks N17.9 - Acute kidney failure, unspecified, N18.9 - Chronic kidney disease, unspecified Urine Culture Today R30.0 - Dysuria Blood Urea Nitrogen 3 Weeks N17.9 - Acute kidney failure, unspecified, N18.9 - Chronic kidney disease, unspecified Electrolytes 3 Weeks N17.9 - Acute kidney failure, unspecified, N18.9 - Chronic kidney disease, unspecified Coding Level of Care Code Est Pt Level 4 (94240) Diagnoses Acute kidney injury superimposed on chronic kidney disease N17.9; N18.9 Primary hypertension I10 Hypertension type: primary hypertension Stage 3b chronic kidney disease N18.32 Chronic kidney disease stage 3 subtype: stage 3b (GFR 30-44) Dysuria R30.0
== END 2024-07-20 15:06 | disposition home or self-care (01) ==
LOC: HO.HKAS 13:50
PROVIDERS: PCP Internal Medicine; Visit Provider Internal Medicine Nephrology
DX: N17.9 Acute kidney failure, unspecified (principal); N18.9 Chronic kidney disease, unspecified; I12.9 Hypertensive chronic kidney disease with stage 1 through stage 4 chronic kidney disease, or unspecified chronic kidney disease; N18.32 Chronic kidney disease, stage 3b; R30.0 Dysuria
CPT/HCPCS: 99214

== ENCOUNTER 2024-08-08 13:31 | Outpatient (AMB) | payer OTHER, SELFPAY ==
--- NOTE | 2024-08-08 13:42 | HO.NEPHOV_ITS ---
Vital Signs 08/08/24 13:44 Height 5 ft 4 in BP 112/70 Blood Pressure Location Rt brachial Position Sitting Intake Visit Reasons: 3wk follow-up w/labs-Conf News Production Assistant Required: No Accompanied by: Spouse Allergies No Known Allergies Allergy (Verified 08/08/24 13:43) HPI Comments Details: 79 yo gentleman with complex medical issues including CAD s/p CABG with bioprosthetic mitral valve replacement, dilated cardiomyopathy with EF of 30 to 35% s/p AICD in place, CKD 3 B, Graves' disease, COPD, previous MCA stroke with left-sided deficits, who had a prolonged hospitalization 2022 for bilateral angioplasty and left external iliac stent placement and right lower extremity fasciotomy with wound injury. He recently was hospitalized with SOB. He was diagnosed with UTI and was treated with antibiotics. He also had GLO at that time. He continues to have edema. He has poor appetite. He denies nausea, vomiting, fever, chills, diarrhea. He does not take any nonsteroidal anti- inflammatory use and is compliant with medications. His is doing the very best to help him improve out of his current clinical status. He has been having difficulty urinating , scrotal edema and recurrent UTI [facility] Medical History (Updated 08/08/24 @ 14:19 by Jonathan Isidro MD) MGUS (monoclonal gammopathy of unknown significance) Iron deficiency Anemia Hyperuricemia Hypertension CKD (chronic kidney disease), stage III Surgical History History of surgery on lower extremity Social History Alcohol intake: current Comment: Occasional Patient Tobacco Use Status: Former Tobacco user Review of Systems Const All systems reviewed & are unremarkable except as noted in HPI and below Physical Exam Vital Signs: Last Vital Signs BP 112/70 08/08/24 13:44 Const General: no acute distress Eyes EOM: EOMs intact bilaterally Resp Auscultation: diminished lung sounds Cardio Rate: regular rate GI Palpation (GI): Soft to palpation Neuro General: moves all extremities Results Reviewed Nephrology Results: Hgb 11.5 g/dl (14.0-18.0) L 07/18/24 WBC 5.0 X10*3/uL (4.8-10.8) 07/18/24 Plt Count 143 X10*3/uL (160-400) L 07/18/24 Sodium 139 mmol/L (135-145) 07/18/24 Potassium 3.5 mmol/L (3.3-5.1) 07/18/24 Chloride 103 mmol/L (96-108) 07/18/24 Carbon Dioxide 24 mmol/L (22-29) 07/18/24 BUN 33 mg/dL (9-16) H 07/18/24 Creatinine 2.23 mg/dL (0.5-1.4) H 07/18/24 Calcium 9.3 mg/dL (8.4-10.2) 07/18/24 Phosphorus 3.0 mg/dL (2.7-4.5) 07/18/24 PTH Intact 232.3 pg/mL (8.7-77.1) H 07/18/24 Assessment & Plan Assessment & Plan (1) Acute kidney injury superimposed on chronic kidney disease: Code(s): N17.9 - Acute kidney failure, unspecified; N18.9 - Chronic kidney disease, unspecified Category: Medical (2) CKD (chronic kidney disease), stage III: Code(s): N18.30 - Chronic kidney disease, stage 3 unspecified Category: Medical Qualifiers: Chronic kidney disease stage 3 subtype: stage 3b (GFR 30-44) Qualified Code(s): N18.32 - Chronic kidney disease, stage 3b (3) Anemia in chronic kidney disease: Code(s): N18.9 - Chronic kidney disease, unspecified; D63.1 - Anemia in chronic kidney disease Category: Medical Qualifiers: Chronic kidney disease stage: stage 3 (moderate) Chronic kidney disease stage 3 subtype: stage 3b (GFR 30-44) Qualified Code(s): N18.32 - Chronic kidney disease, stage 3b; D63.1 - Anemia in chronic kidney disease (4) Hypertension: Code(s): I10 - Essential (primary) hypertension Category: Medical Qualifiers: Hypertension type: primary hypertension Qualified Code(s): I10 - Essential (primary) hypertension (5) Scrotal swelling: Code(s): N50.89 - Other specified disorders of the male genital organs Category: Medical (6) Recurrent UTI: Code(s): N39.0 - Urinary tract infection, site not specified Category: Medical Plan Carlos is known to have chronic kidney disease stage IIIB at baseline. He had multiple AKIs during his multiple prolonged hospitalizations . Recently he had GLO due to HF exacerbation as well as possible UTI. His Entresto is on hold but remains on lasix. He still is hypervolemic. I shall restart entresto when his GLO is improved. He can continue his iron tablets three times a day. He needs agressive physical therapy. I referred him for repeat imaging and urgent Urology consult. All these have been discussed in extensive detail. I gave him the opportunity to ask questions which I answered to their satisfaction. Follow-up labs ordered and F/U given Orders: Orders US scrotum Today N50.89 - Other specified disorders of the male genital organs US renal BI 1 Day N17.9 - Acute kidney failure, unspecified, N18.9 - Chronic kidney disease, unspecified, N50.89 - Other specified disorders of the male genital organs US bladder Today N39.0 - Urinary tract infection, site not specified Creatinine 1 Month N17.9 - Acute kidney failure, unspecified, N18.9 - Chronic kidney disease, unspecified Blood Urea Nitrogen 1 Month N17.9 - Acute kidney failure, unspecified, N18.9 - Chronic kidney disease, unspecified Electrolytes 1 Month N17.9 - Acute kidney failure, unspecified, N18.9 - Chronic kidney disease, unspecified Referrals Urology Referral N39.0 - Urinary tract infection, site not specified, N50.89 - Other specified disorders of the male genital organs Coding Level of Care Code Est Pt Level 4 (52385) Diagnoses Acute kidney injury superimposed on chronic kidney disease N17.9; N18.9 Stage 3b chronic kidney disease N18.32 Chronic kidney disease stage 3 subtype: stage 3b (GFR 30-44) Anemia in stage 3b chronic kidney disease N18.32; D63.1 Chronic kidney disease stage: stage 3 (moderate) Chronic kidney disease stage 3 subtype: stage 3b (GFR 30-44) Primary hypertension I10 Hypertension type: primary hypertension Scrotal swelling N50.89 Recurrent UTI N39.0
[2024-08-08 13:44] VITALS: BP 112/70
--- OUTSIDE RECORDS SUMMARY | 2024-08-08 15:09 | XMS_ITS | Encounter Summary ---
Author Organization [facility] Address [address] [place] [address] Care Team Providers Care Hot Dipper Name Role Phone Arian Arcos MD Primary Care Provider Encounter Details Date Type Department Care Team (Late st Contact Info) Description 08/08/2024 11:20 AM EDT Ancillary Procedure [facility] - [facility] [address] [facility] [address] [place] [phone] Arrived Social History Tobacco Use Types Packs/Day Years Used Date Smoking Tobacco: Never Smokeless Tobacco: Never Alcohol Use Standard Drinks/Week Comments No 0 (1 standard drink = 0.6 oz pur e alcohol) Housing Instability Answer Date Recorde d Are you worried that in the next 2 months you may not have stable housing? Unable to respond 07/27/2024 Food Access & Nutrition Answer Date Rec orded Do you have access to a vari ety of food including fruits and vegetables? Unable to respond 07/27/2024 Health Literacy Answer Date Recorded How often do you need to hav e someone help you when you read instructions, pamphlets, or other written material from your doctor or pharmacy? Unable to respond 07/27/2024 Caregiver: How often do you need to have someone help you when you read instructions, pamphlets, or other written material from your doctor or pharmacy? Not on file 025 Financial Risk Answer Date Recorded How hard is it for you to pa y for the very basics like food, housing, medical care, and air conditioning / heating? Unable to respond 07/27/2024 Transportation Answer Date Recorded Has the lack of transportati on kept you from meetings, work, or from getting things needed for daily living? Unable to respond 07/27/2024 Has the lack of transportati on kept you from medical appointments or from getting medications? Unable to respond 07/27/2024 Social Isolation Answer Date Recorded How often do you feel lonely or isolated from those around you? Unable to respond 07/27/2024 Food Risk Answer Date Recorded Within the past 12 months we worried whether our food would run out before we got money to buy more. Unable to respond 025 Within the past 12 months th e food we bought just didn't last and we didn't have money to get more. Unable to respond 07/07 Dependent Care Answer Date Recorded Do you need help finding or paying for care for your loved ones. For example, children teacher or elderly care for an older adult? Unable to respond 07/27/2024 Education Answer Date Recorded Do you think completing more education or training, like finishing a GED, going to college, or learning a trade, would be helpful for you? Unable to respond 07/27/2024 Employment and Income Answer Date Recor ded During the last four weeks, have you been actively looking for work? Unable to respond 07/27/2024 Living Situation Answer Date Recorded What is your living situation? 0 07/27/2024 Interpersonal Safety Answer Date Record ed Physical Abuse 07/31/2024 Verbal Abuse 07/31/2024 Sex and Gender Information Value Date Recorded Sex Assigned at Male 06/13/2024 8:41 PM EDT Legal Sex Male 7:08 AM EST Gender Identity Male 06/13/2024 8:41 PM EDT Sexual Orientation Straight 06/13/2024 8: 41 PM EDT documented as of this encounter Functional Status * Are you deaf or do you have serious difficulty hearing? Answer Date of Assessment Author No 06/13/2024 8:22 PM EDT Judith Valera RN * Are you blind or do you have serious difficulty seeing, even when wearing glasses? Answer Date of Assessment Author No 06/13/2024 8:22 PM EDT Judith Valera RN * Do you have serious difficulty walking or climbing stairs? Answer Date of Assessment Author No 06/13/2024 8:22 PM EDT Judith Valera RN * Do you have serious difficulty dressing or bathing? Answer Date of Assessment Author No 06/13/2024 8:22 PM EDT Judith Valera RN * Because of a physical, mental, or emotional condition, do you have serious difficulty doing errandsalone such as visiting the doctor? Answer Date of Assessment Author No 06/13/2024 8:22 PM EDT Judith Vaelra RN documented as of this encounter Mental Status * Because of a physical, mental, or emotional condition, do you have serious difficulty concentrating, remembering, or making decisions? (5 years old or older) Answer Entry Date Author No 06/13/2024 8:22 PM EDT Judith Valera RN documented in this encounter Plan of Treatment Upcoming Encounters Date Type Department Care Team (Late st Contact Info) Description 08/23/2024 2:10 PM EDT Office Visit [facility] - [address] [place] [address] Adamaris Hammond NP [address] [place] [address] 05/31/2025 3:00 PM EDT Ancillary Procedure [facility] - [address] [place] [address] documented as of this encounter Procedures Procedure Name Priority Date/Time Associated Diagnosis Comments CARDIAC DEVICE CHECK- REMOTE- MURJ Routine 08/08/2024 11:18 AM EDT documented in this encounter Results * Cardiac device check - Remote- MURJ (08/08/2024 11:18 AM EDT) Date Time Interrogation Session [id number] CV DEVICE CHECK Type Interrogation Session Remote CV DEVICE CHECK Implantable Pulse Generator [employer] Bailiff BIO CV DEVICE CHECK Implantable Pulse Generator Type ICD CV DEVICE CHECK Implantable Pulse Generator Model Intica 7 VR-T DX CV DEVICE CHECK Implantable Pulse Generator Serial Number [id number] CV DEVICE CHECK Implantable Pulse Generator Implant Date 20180620 CV DEVICE CHECK Battery Remaining Percentage 40.00 CV DEVICE CHECK Battery Voltage 3.090 CV D EVICE CHECK Battery MULTIMEDIA EDUCATIONAL SPECIALIST Trigger 2.850 CV DEVICE CHECK Battery Status Middle of Service CV DEVICE CHECK Capacitor Charge Time 11.500 CV DEVICE CHECK Ryan Statistic RV Percent Paced 61.00 CV DEVICE CHECK Atrial Tachy Statistic AT/AF [place] Percent 0.00 CV DEVICE CHECK Lead Channel Sensing Intrinsic Amplitude 0.500 CV DEVICE CHECK Lead Channel Setting Sensing Sensitivity 0.20 CV DEVICE CHECK Lead Channel RA Pacing Threshold Date 2024-08-01 CV DEVICE CHECK Lead Channel Sensing Intrinsic Amplitude 2.600 CV DEVICE CHECK Lead Channel Setting Sensing Sensitivity 0.80 CV DEVICE CHECK Lead Channel Impedance Value 376 CV DEVICE CHECK Lead Channel Pacing Threshold Amplitude 1.000 CV DEVICE CHECK Lead Channel Pacing Threshold Pulse Width 0.4 CV DEVICE CHECK Lead Channel RV Pacing Threshold Date 2024-08-01 CV DEVICE CHECK Lead Channel Setting Pacing Amplitude 2.000 CV DEVICE CHECK Lead Channel Setting Pacing [...] 0 CV DEVICE CHECK Shock Measured Impedance 61 CV DEVICE CHECK Zone Setting Type Category Zone_ATAF CV DEVICE CHECK Rate 200 CV DEVICE CHECK Zone Setting Status Monitor CV DEVICE CHECK Zone ID 7 CV DEVICE CHECK Zone Setting Type Category VF CV DEVICE CHECK Rate 200 CV DEVICE CHECK Therapies Burst,40.0J,40.0J ,40.0J x 6 CV DEVICE CHECK Zone Setting Status On CV DEVICE CHECK Zone ID 8 CV DEVICE CHECK Zone Setting Type Category VT CV DEVICE CHECK Rate 150 CV DEVICE CHECK Zone Setting Status Monitor CV DEVICE CHECK Zone ID 9 CV DEVICE CHECK Zone Setting Type Category VT CV DEVICE CHECK Zone Setting Status Inactive CV DEVICE CHECK Zone ID 10 CV DEVICE CHECK Date of Service 2024-08-08 CV DEVICE CHECK Anatomical Region Laterality Modality Device Interroga tion 08/01/2024 1:32 AM EDT Impressions 08/08/2024 11:08 AM EDT Normal Remote: No Events * Normal Device Function * Alerts or events: None * Battery: Battery is at 40%, * Sensing, impedance and thresholds reviewed * Programmed parameters reviewed * Presenting rhythm reviewed * Heart Rate Histograms reviewed * No significant changes noted Heart Failure Diagnostic: Elevated * Heart failure diagnostics assessed through the device * Status: Elevated * Recently discharged from hospital for UTI and CHF exacerbation Narrative Procedure Note Bahman Capps MD - 08/08/2024 IMPRESSION: Normal Remote: No Events * Normal Device Function * Alerts or events: None * Battery: Battery is at 40%, * Sensing, impedance and thresholds reviewed * Programmed parameters reviewed * Presenting rhythm reviewed * Heart Rate Histograms reviewed * No significant changes noted Heart Failure Diagnostic: Elevated * Heart failure diagnostics assessed through the device * Status: Elevated * Recently discharged from hospital for UTI and CHF exacerbation Bahman Capps MD CV IMPLANTABLE CARDIAC DEV ICE PROCEDURES Final Result documented in this encounter Visit Diagnoses Not on filedocumented in this encounter Care Teams Hot Dipper Relationship Specialty Start Date End Date Arian Arcos MD [address] [facility] [address] [place], [place] PCP - General 10/29/22 documented as of this encounter
== END 2024-08-08 14:31 | disposition home or self-care (01) ==
LOC: HO.HKAS 13:32
PROVIDERS: PCP Internal Medicine; Visit Provider Internal Medicine Nephrology
DX: N17.9 Acute kidney failure, unspecified (principal); I12.9 Hypertensive chronic kidney disease with stage 1 through stage 4 chronic kidney disease, or unspecified chronic kidney disease; N18.32 Chronic kidney disease, stage 3b; D63.1 Anemia in chronic kidney disease; N50.89 Other specified disorders of the male genital organs; N39.0 Urinary tract infection, site not specified
CPT/HCPCS: 99214

== ENCOUNTER → 2024-08-08 13:31 | Outpatient (BNVA) | payer OTHER, SELFPAY | PROVIDERS: PCP Internal Medicine; Visit Provider Internal Medicine Nephrology | DX: I12.9 Hypertensive chronic kidney disease with stage 1 through stage 4 chronic kidney disease, or unspecified chronic kidney disease (principal); N18.32 Chronic kidney disease, stage 3b; N17.9 Acute kidney failure, unspecified; D63.1 Anemia in chronic kidney disease; N50.89 Other specified disorders of the male genital organs; N39.0 Urinary tract infection, site not specified | CPT/HCPCS: 99212 ==

== ENCOUNTER 2024-08-09 09:37 | Outpatient (REF) | payer OTHER, SELFPAY ==
--- NOTE | ~2024-08-09 | US_ITS ---
EXAMINATION: US SCROTUM CLINICAL INFORMATION: Scrotal edema. COMPARISON: None available. TECHNIQUE: A sonogram of the scrotum was performed assessing bingham-scale appearance and color Doppler flow. Spectral Doppler analysis of the arterial and venous flow were performed in the testes bilaterally. FINDINGS: RIGHT: Right testicle measures 2.6 x 1.6 x 2.5 cm, volume 7.3 mL. No focal testicular parenchymal lesions are visualized. Spectral Doppler analysis of the arterial and venous flow is normal in the right testis. Right epididymis is not well-visualized. A small epididymal head cyst noted measuring 0.8 x 0.4 x 0.6 cm. There is a small complex hydrocele measuring 2 0 7 mL with an echogenic area, scrotal pole. No right varicocele is seen. Right epididymal Doppler flow is normal. LEFT: Left testicle measures 2.9 x 2.5 x 1.8 cm, volume 11.0 mL. No focal testicular parenchymal lesions are visualized. Spectral Doppler analysis of the arterial and venous flow is normal in the left testis. Left epididymal head is normal in size. There is a complex left hydrocele with septations, associated with a small varicocele.. Left epididymal Doppler flow is normal. US/US scrotum IMPRESSION: Bilateral hydroceles with a complex hydrocele on the left. The right hydrocele measures 2 0 7 mL. Right epididymis not visualized. Left epididymis is unremarkable. Small left varicocele. The testes are unremarkable except for a small right scrotal kong. Electronically signed by: Eloy Pineda MD 08/09/2024 10:43 AM EDT
--- OUTSIDE RECORDS SUMMARY | 2024-08-09 10:03 | XMS_ITS | Encounter Summary ---
Author Organization [facility] Address [address] [place] [address] Care Team Providers Care Representative Name Role Phone Arian Arcos MD Primary Care Provider [phone] Encounter Details Date Type Department Care Team (Late st Contact Info) Description 08/08/2024 11:20 AM EDT Ancillary Procedure [facility] - [facility] [address] [facility] [address] [place] [phone] Arrived Social History Tobacco Use Types Packs/Day [...] care for your loved ones. For example, child welfare assistant or elderly care for an older adult? [...] 8:22 PM EDT Judith Valera RN documented as of this encounter Mental [...] Description 08/23/2024 2:10 PM EDT Office Visit [facility] [address] [place] [address] Adamaris Hammond NP [address] [place] [address] 05/31/2025 3:00 PM EDT Ancillary Procedure [facility] - [address] [place] [address] documented as of this encounter Procedures Procedure Name Priority Date/Time Associated Diagnosis Comments CARDIAC DEVICE CHECK- REMOTE- MURJ Routine 08/08/2024 11:18 AM EDT documented in this encounter Results * Cardiac device check - Remote- MURJ (08/08/2024 11:18 AM EDT) Date Time Interrogation Session [id number] CV DEVICE CHECK Type Interrogation Session Remote CV DEVICE CHECK Implantable Pulse Generator Direct Support Professional BIO CV DEVICE CHECK Implantable Pulse Generator Type ICD CV DEVICE CHECK Implantable Pulse Generator Model Intica 7 VR-T DX CV DEVICE CHECK Implantable Pulse Generator Serial Number [id number] CV DEVICE CHECK Implantable Pulse Generator Implant Date 20180620 CV DEVICE CHECK Battery Remaining Percentage 40.00 CV DEVICE CHECK Battery Voltage 3.090 CV D EVICE CHECK Battery OVEREDGE SEWER Trigger 2.850 CV DEVICE CHECK Battery Status Middle of Service CV DEVICE CHECK Capacitor Charge Time 11.500 CV DEVICE CHECK Ryan Statistic RV Percent Paced 61.00 CV DEVICE CHECK Atrial Tachy Statistic AT/AF [place] Percent 0.00 CV DEVICE CHECK Lead Channel [...] on filedocumented in this encounter Care Teams Representative Relationship Specialty Start Date End Date Arian Arcos MD [address] [facility] [address] [place], [place] PCP - General 10/29/22 documented as of this encounter
== END 2024-08-09 09:38 | disposition home or self-care (01) ==
LOC: HO.US 09:37
PROVIDERS: Visit Provider Internal Medicine Nephrology
DX: N50.89 Other specified disorders of the male genital organs (principal)
CPT/HCPCS: 76870

== ENCOUNTER → 2024-08-09 09:39 | Outpatient (BNV) | payer OTHER, SELFPAY | PROVIDERS: Visit Provider Radiology Diagnostic Radiology | DX: I86.1 Scrotal varices (principal); N43.3 Hydrocele, unspecified | CPT/HCPCS: 76870; 93976 ==

== ENCOUNTER 2024-09-06 14:27 | Outpatient (AMB) | payer OTHER, SELFPAY ==
--- NOTE | 2024-09-06 14:45 | A.OFFVIS_ITS ---
Intake Visit Reasons: recurrent UTI Intake Note: New Patient presents for initial visit for recurrent uti Urology Medications: none Blood Thinner: apixaban PVR: 26ml's [place] Required: No Accompanied by: Self / Same As Patient Allergies No Known Allergies Allergy (Verified 09/06/24 15:49) Medication List - Last Reconciled 09/06/24 by VENTURA Morgan apixaban (Eliquis) 5 mg PO BID atorvastatin 20 mg PO BEDTIME digoxin 125 mcg PO DAILY ferrous gluconate 324 mg PO TID 90 days furosemide 40 mg PO BID 30 days gabapentin mg PO BID methimazole 5 mg PO DAILY metoprolol succinate ER 25 mg PO DAILY pantoprazole 40 mg PO DAILY spironolactone 12.5 mg PO DAILY tamsulosin 0.4 mg PO BEDTIME HPI Comments Details: Carlos is a 79-year-old male patient who was accompanied by his at today's office visit. He has a past medical history of iron deficiency anemia, hyperuricemia, hypertension, stage 3 chronic kidney disease, CAD s/p CABG with bioprosthetic mitral valve replacement, dilated cardiomyopathy with EF of 30 to 35% s/p AICD in place, Graves' disease, COPD, previous MCA stroke with left-sided deficits, who had a prolonged hospitalization 2022 for bilateral angioplasty and left external iliac stent placement and right lower extremity fasciotomy with wound injury. He presents to the office today as a new patient for recurrent urinary tract infections as well as scrotal edema. In discussion with the patient's who provides all of today's health history she reports having followed up with Nephrology and discussing ongoing scrotal edema at which time a scrotal ultrasound was ordered and performed. These results were reviewed and communicated with the patient and his today 08/30 bilateral hydroceles with a complex hydrocele on the left. The right hydrocele measures 207 mL. Right epididymis is not well visualized. Left epididymis is unremarkable. Small left varicocele. In assessment of the patient today the penis is uncircumcised and patient with a large right hydrocele. We did discussed at length potential causes of hydrocele as well as further intervention to include surveillance monitoring verses hydrocelectomy verses in office drainage. Risks and benefits of these interventions were discussed. Patient's reports over the last 4 months patient continues to decline. She reports that although patient suffers from dementia she does feel his mental status has been worsening. It is unclear if this is related to his recurrent urinary tract infections or overall decline. She reports despite occupational and physical therapy he continues to have difficulty with walking and performing any weight-bearing activities. She discusses patient has been having ongoing medical issues and has been seeking emergency room care services. She discusses patient's recent admission to [facility] for ongoing treatment of a urinary tract infection. In office urinalysis results reviewed with the patient and his today. 3+ leukocytes negative nitrates. PVR 26 mL. She reports patient is compliant with 0.4 mg of Flomax at bedtime. She denies patient to have and or report any nausea, vomiting, fever, chills, flank pain, and or hematuria. We did discuss as well potential causes of recurrent urinary tract infections as well as further treatment options and risks and benefits of these treatment options. We discussed obtaining retroperitoneal ultrasound for further assessment evaluation and sending urinalysis today for urine culture. In review of patient's chart it appears there are previous medical records from recent hospitalization at [facility] 08/14/[address] abdomen and pelvis without contrast no renal, ureteral calculi, or hydronephrosis noted bilaterally. Enlarged prostate with multiple prostatic calcifications. Diffuse bladder wall thickening may reflect chronic bladder outlet obstruction versus cystitis. Correlate with urinalysis per radiology report. It appears patient was given ciprofloxacin 250 mg daily for recent UTI treatment. All questions were answered. In office right-sided hydrocele drainage was performed. PreOperative Diagnosis: Large right-sided hydrocele Post Operative Diagnosis: Large right-sided hydrocele Procedure: Drainage of hydrocele with sclerotherapy in office Surgeon: Christine Nuñez/Milad Arellano Anesthesia: Local Indications for procedure: Persistent hydrocele Procedure: Informed consent was verified and site confirmed The testicle was prepped using Betadine swab stick 10 cc 1% lidocaine placed in cord for cord block Testicle was elevated and 18 gauge Angiocath placed for drainage of hydrocele fluid 230 cc of fluid removed 10 cc of 200 mg doxycycline mixed with 1% lidocaine injected for sclerotherapy Procedure tolerated CPT 37144, [address] [facility] Medical History MGUS (monoclonal gammopathy of unknown significance) Iron deficiency Anemia Hyperuricemia Hypertension CKD (chronic kidney disease), stage III Surgical History History of surgery on lower extremity Social History Alcohol intake: current Comment: Occasional Patient Tobacco Use Status: Former Tobacco user Review of Systems Const Unobtainable due to mental status Physical Exam Const General: cooperative, no acute distress, well developed, ill appearing and lethargic Orientation/consciousness: oriented to person and lethargic Limitations: wheelchair HEENT Head: Yes normal to inspection Eyes General: appearance normal, both eyes and all related structures Neck Neck: Yes normal visual inspection Chest Chest palpation & inspection: normal inspection of the chest Resp Effort & Inspection: normal respiratory effort Cardio Rate: regular rate GI Inspection: Yes normal to inspection General: Yes CVA tenderness Penis: normal penis and uncircumcised Meatus: meatus normal Scrotum: Hydrocele present (right sided greater than left ) bilateral Back/Spine/Pelvis Back: CVA tenderness Skin General skin exam: no rashes or lesions noted Neuro General: oriented to person Extrem Other: Scar noted to right lower leg extremity General: Yes normal to inspection Psych Mental Status: other Attitude: cooperative Insight: Limited insight present (Psych) Judgement: Limited judgement present (Psych) Office Procedures Post Void Residual Post Residual Void Post Void Residual (PVR): 26 86189-Yowj Void Residual by ultrasound Results AMB Urinalysis, Automated UA Leukoctes 500 Evelyn/uL Last Edit by SANDRA Ramon on 09/06/24 15:06 UA Nitrite Last Edit by SANDRA Ramon on 09/06/24 15:06 UA Urobilinogen 0.2 mg/dL Last Edit by SANDRA Ramon on 09/06/24 15:0 6 UA Protein 30 mg/dL Last Edit by SANDRA Ramon on 09/06/24 15:06 UA pH 6.0 Last Edit by BrandycSANDRA Pineda on 09/06/24 15:06 UA Blood 200 Brendan/uL Last Edit by Odalys MylagillianKAVITA on 09/06/24 15:06 UA Specific [place] 1.010 Last Edit by Odalys Yip [facility] on 09/06/24 15: 06 UA Ketone Last Edit by Odalys Mylagillian [facility] on 09/06/24 15:06 UA Bilirubin 0 mg/dL Last Edit by [facility] on 09/06/24 15:06 UA Glucose 0 mg/dL Last Edit by Odalys Mylagillian [facility] on 09/06/24 15:06 Results Reviewed Results Reviewed: Laboratory Last Values Urine pH (Auto) 6.0 09/06/24 15:05 Specific [place] (Auto) 1.010 09/06/24 15:05 Urine Protein (Auto) 30 mg/dL 09/06/24 15:05 Glucose (UA)(Auto) 0 mg/dL 09/06/24 15:05 Urine Blood (Auto) 200 Brendan/uL 09/06/24 15:05 Urine Bilirubin (Auto) 0 mg/dL 09/06/24 15:05 Urine Urobilinogen (Auto) 0.2 mg/dL 09/06/24 15:05 Leukocyte Esterase (Auto) 500 Evelyn/uL 09/06/24 15:05 Date of Service: 08/09/24 Procedure(s): US scrotum FINDINGS: RIGHT: Right testicle measures 2.6 x 1.6 x 2.5 cm, volume 7.3 mL. No focal testicular parenchymal lesions are visualized. Spectral Doppler analysis of the arterial and venous flow is normal in the right testis. Right epididymis is not well-visualized. A small epididymal head cyst noted measuring 0.8 x 0.4 x 0.6 cm. There is a small complex hydrocele measuring 2 0 7 mL with an echogenic area, scrotal pole. No right varicocele is seen. Right epididymal Doppler flow is normal. LEFT: Left testicle measures 2.9 x 2.5 x 1.8 cm, volume 11.0 mL. No focal testicular parenchymal lesions are visualized. Spectral Doppler analysis of the arterial and venous flow is normal in the left testis. Left epididymal head is normal in size. There is a complex left hydrocele with septations, associated with a small varicocele.. Left epididymal Doppler flow is normal. IMPRESSION: Bilateral hydroceles with a complex hydrocele on the left. The right hydrocele measures 2 0 7 mL. Right epididymis not visualized. Left epididymis is unremarkable. Small left varicocele. The testes are unremarkable except for a small right scrotal kong. Assessment & Plan Assessment & Plan (1) Recurrent UTI: Code(s): N39.0 - Urinary tract infection, site not specified Category: Medical (2) Hydrocele: Code(s): N43.3 - Hydrocele, unspecified Category: Medical (3) Enlarged prostate: Code(s): N40.0 - Benign prostatic hyperplasia without lower urinary tract symptoms Category: Medical (4) Bladder wall thickening: Code(s): N32.89 - Other specified disorders of bladder Category: Medical Plan In office urinalysis results reviewed with the patient and his today; will send for urine culture; will send for urine cytology; will await results for potential treatment. PVR 26ml's. Large right-sided hydrocele was drained; as noted above. We did discussed potential causes of hydroceles as well as recurrent urinary tract infection; we discussed further treatment options of these urological conditions and risks and benefits of these treatment options. All questions were answered. Continue Flomax We did discuss initiation of finasteride given most recent CT noted enlarged prostate and bladder wall thickening. Will await results of retroperitoneal ultrasound for further measurement of prostate size. Will obtain retroperitoneal ultrasound for further assessment evaluation. Will obtain PSA for further assessment evaluation. Follow-up in 1-2 months with imaging, PSA, and PVR; or sooner with any issues, concerns, and or questions. Orders: Orders AMB Urinalysis Automated Today Z13.9 - Encounter for screening, unspecified Urine Culture Today N39.0 - Urinary tract infection, site not specified Urine Cytology Today R31.29 - Other microscopic hematuria AMB Post Void Residual by ultrasound Today N39.0 - Urinary tract infection, site not specified Prostate Specific Antigen Today N39.0 - Urinary tract infection, site not specified US retroperitoneal comp Today N39.0 - Urinary tract infection, site not specified Patient Instructions: The patient had an opportunity to ask questions regarding the treatment plan. All questions were answered. Physical exam, labs, and imaging were discussed and reviewed in detail. As well as risks, benefits, and discussion of treatment choices. No major barriers to understanding were identified. The patient expressed understanding and agreement with the above treatment plan. The patient was made aware they should contact our office by phone for worsening of their current condition, the appearance of new symptoms, or with any questions or concerns. Compliance is encouraged with any medications and follow up testing that is ordered. It is a privilege to be allowed the opportunity to participate in? your urological care.? Again, if you have any questions or concerns If you have any questions or concerns please do not hesitate to contact me. The office is [phone]. This note is constructed using voice recognition software. While every effort has been made to ensure accuracy pick out hand errors may have been included. Yours sincerely, VENTURA Morgan Coding Level of Care Code New Pt Level 4 (04442) Diagnoses Recurrent UTI N39.0 Hydrocele N43.3 Enlarged prostate N40.0 Bladder wall thickening N32.89 CPT Codes Post Residual Void - PVR CPT Code: 18390-Iclu Void Residual by ultrasound ([id number])
--- OUTSIDE RECORDS SUMMARY | 2024-09-06 14:58 | XMS_ITS | Encounter Summary ---
Author Organization [facility] Address [address] [facility] [address] [place] [address] Phone Care Team Providers Care Catering Staff Member Name Role Phone Arian Arcos MD Primary Care Provider [phone] Encounter Details Date Type Department Care Team (Late st Contact Info) Description 07/29/2022 Telephone [facility] [address] [place] [address] Kayla De La Torre Social [...] would not relay any further. Please advise. [phone] documented in this encounter Plan of Treatment Not on file documented as of this encounter Visit Diagnoses Not on filedocumented in this encounter Care Teams Catering Staff Member Relationship Specialty Start Date End Date Arian Arcos MD [address] [place] [address] PCP - General Internal Medicine 12/10/22 documented as of this encounter
--- OUTSIDE RECORDS SUMMARY | 2024-09-06 14:58 | XMS_ITS | Clinical Summary ---
Author Organization [facility] Address [address] [place] [address] Care Team Providers Care Jewelry Sales Representative Name Role Phone Gustabo Dupree MD Primary Care Provider [phone] Allergies No known active allergies Medications Medication [...] Medical History Relation Name Comments Cancer Sister Eil Relation Name Status Comments Sister Eli Social [...] 65 12/30/2018 2:46 PM EDT Temperature 37.3 C (99.2 F) 12/30/2018 2:46 PM EDT Respiratory Rate - - Oxygen Saturation 98% [...] - 1-dose 75+ series) 2020 Influenza Vaccine (Season Ended) 2024 Hepatitis B Vaccines Aged Out No long er eligible based on patient's age to complete this topic RSV Ped < 20 months Aged Out No longe r eligible based on patient's age to complete this topic Care Teams Jewelry Sales Representative Relationship Specialty Start Date End Date Gustabo Dupree MD [address] [place] [address] PCP - General Hematology and Oncology 08/31/18
--- OUTSIDE RECORDS SUMMARY | 2024-09-06 14:58 | XMS_ITS | Clinical Summary ---
Author Organization [address] [facility] Address [address] [place] [address] Phone Care Team Providers Care Glass Decorator Name Role Phone Arian Arcos MD Primary Care Provider Allergies No known active allergies Medications acetaminophen (TYLENOL) 325 mg tablet Take 2 tablets (650 mg total) by mouth every 4 (four) hours if needed. Active ferrous gluconate (FERGON) 324 mg (37.5 mg iron) tablet Take 324 mg by mouth 3 times daily. 05/20/19 24 Active fluticasone furoate-vilant Tahmina (BREO ELLIPTA) 200-25 mcg/dose inhaler Inhale into the lungs. I puff daily copd Active furosemide (LASIX) 40 mg tablet Take 1 tablet (40 mg total) by mouth 1 (one) time each day. 02/03/20 23 Active methIMAzole (TAPAZOLE) 5 mg tablet Take 0.5 tablets (2.5 mg total) by mouth 1 (one) time each day. Active pantoprazole (PROTONIX) 40 mg EC tablet Take 1 tablet (40 mg total) by mouth 1 (one) time each day before breakfast. Do not crush, chew, or split. Active digoxin (LANOXIN) 125 mcg (0.125 mg) tablet TAKE ONE TABLET BY MOUTH EVERY DAY 30 tablet 6 07/12/19 25 Active spironolactone (ALDACTONE) 25 mg tablet Take 0.5 tablets (12.5 mg total) by mouth 1 (one) time each day. 45 each 1 07/14/19 25 Active Eliquis 2.5 mg tablet TAKE ONE TABLET BY MOUTH TWICE A DAY 180 tablet 1 08/11/19 25 Active atorvastatin (LIPITOR) 20 mg tablet TAKE 1 TABLET BY MOUTH ONCE DAILY. 90 tablet 3 08/18/19 25 Active tamsulosin (FLOMAX) 0.4 mg 24 hr capsule Take 1 capsule (0.4 mg total) by mouth at bedtime. Capsules should be taken 30 minutes following the same meal each day. 30 each 08/18/19 25 025 Active gabapentin (NEURONTIN) 100 mg capsule Take 1 capsule (100 mg total) by mouth at bedtime. 08/18/19 25 Active metoprolol succinate (TOPROL-XL) 25 mg 24 hr tablet Take 1 tablet (25 mg total) by mouth 1 (one) time each day. Do not crush or chew. 30 each 08/19/19 25 Active gabapentin (NEURONTIN) 100 mg capsule Take 1 capsule (100 mg total) by mouth 2 (two) times a day. 025 Discontinued apixaban (ELIQUIS) 2.5 mg tablet Take 1 tablet (2.5 mg total) by mouth 2 (two) times a day. 180 tablet 1 02/25/20 24 025 Discontinued atorvastatin (LIPITOR) 20 mg tablet Take 1 tablet (20 mg total) by mouth 1 (one) time each day. 025 Discontinued metoprolol succinate (TOPROL-XL) 50 mg 24 hr tablet Take 1 tablet (50 mg total) by mouth 1 (one) time each day. Do not crush or chew. 06/20/19 25 025 Discontinued(St op Taking at Discharge) ciprofloxacin (CIPRO) 250 mg tablet Take 1 tablet (250 mg total) by mouth every 12 (twelve) hours for 6 doses. 6 each 08/18/19 25 025 magnesium oxide (MAG-OX) 400 mg (241.3 elemental magnesium) tablet Take 1 tablet (400 mg total) by mouth 2 (two) times a day for 5 days. 10 each 08/18/19 25 025 Active Problems Problem Noted Date Diagnosed Date GLO (acute kidney injury) ([facility] V24) 08/23/19 Acute metabolic encephalopathy 08/22/2024 Bradycardia 08/22/2024 Hyperthyroidism 08/22/2024 Hypokalemia 08/22/2024 SOB (shortness of breath) 08/22/2024 Encephalopathy acute 08/13/2024 Recurrent UTI 07/27/2024 Acute on chronic HFrEF (hear t failure with reduced ejection fraction) ([facility] V24, [facility] V28) 06/13/2024 Ischemic cardiomyopathy 04/01/2021 Anemia in other chronic diseases classified else where 05/14/2020 Dilated cardiomyopathy ([facility] V24, [facility] V28 ) 05/14/2020 Monoclonal gammopathy 05/14/2020 Renal insufficiency 05/14/2020 Stage 3b chronic kidney disease ([facility] V24, [facility] V28) 05/14/2020 Tricuspid valve insufficiency 05/14/2020 Atrial fibrillation ([facility] V24, [facility] V28) 1 03/31/2019 Encounters Date Type Department Care Team Description 08/29/2024 12:25 AM EDT Ancillary Procedure [facility] Cardiology [facility] [address] [place] [address] 08/15/2024 Telephone [facility] [address] [facility] [address] [place] [address] Sixto Henderson MD Med Dose Change 08/13/2024 2:10 PM EDT - 08/17/2024 5:23 PM EDT Hospital Encounter [facility] Urology [address] [place] [address] Kevon Hassan MD Japaridze, Anna, MD Encephalopathy acute (Primary Dx); Agitation; Gait instability Discharge Disposition: Home-Health Care Svc 08/08/2024 11:20 AM EDT Ancillary Procedure [facility] Cardiology [facility] [address] [facility] [address] [place] [address] 07/26/2024 10:09 PM EDT - 07/31/2024 4:21 PM EDT Hospital Encounter [facility]rology [address] [place] [phone] Manuela Sorto MD Jones, Christopher, MD Zipagan, James T, MD Kokosadze, Estate, MD Recurrent UTI (Primary Dx); Acute encephalopathy; Acute on chronic congestive heart failure, unspecified heart failure type ([facility] V24, [facility] V28) Discharge Disposition: Home or Self Care 07/26/2024 Telephone [facility] Cardiology [facility] - [facility] [address] [facility] [address] [place] [phone] Sixto Henderson MD Hospital Follow-up 07/13/2024 Telephone [facility] - [facility] [address] [phone] Sixto Henderson MD Med Refill 06/16/2024 Telephone [facility] - [facility] [address] [facility] [address] [place] [phone] Sixto Henderson MD Medication Concerns (Change in medications ) 06/13/2024 8:08 PM EDT - 06/15/2024 5:03 PM EDT Hospital Encounter [facility] Urology Unit [address] [place] [phone] Chadd Landin MD Millay, Scot A, MD Jones, Christopher, MD Santoyo-Pacheco, Omar D, MD Delirium (Primary Dx) Discharge Disposition: Home-Health Care [facility] 06/09/2024 11:30 PM EDT Ancillary Procedure [facility] Cardiology [facility] - [facility] [address] [facility] [address] [place] [phone] from Last 3 Months Medical History Medical History Date Comments CHF (congestive heart failure) ([facility] V24, [facility] V28) COPD (chronic obstructive pulmonary disease) ( [facility] V24, [facility] V28) Renal disorder Dementia ([facility] V24, [facility] V28) Hypertension Social History Tobacco Use Types Packs/Day Years [...] for your loved ones. For example, child nutrition assistant or elderly care for an older [...] Safety Answer Date Record ed Physical Abuse 08/17/2024 Verbal Abuse 08/17/2024 Sex and Gender Information Value Date Recorded Sex Assigned at Male 06/13/2024 8:41 PM EDT Legal Sex Male 7:08 AM EST Gender Identity Male 06/13/2024 8:41 PM EDT Sexual Orientation Straight 06/13/2024 8: 41 PM EDT Obstetrics History Last Filed Vital Signs Vital Sign Reading Time Taken Comments Blood Pressure 129/70 08/17/2024 9:34 AM EDT Pulse 53 08/17/2024 9:34 AM EDT Temperature 36.5 C (97.7 F) 08/17/2024 9:34 AM EDT Respiratory Rate 18 08/17/2024 9:34 AM EDT Oxygen Saturation 95% 08/17/2024 9:34 AM EDT Inhaled Oxygen Concentration - - Weight 78.9 kg (174 lb) 08/17/2024 6:00 AM EDT Height 162.6 cm (5' 4 ) 08/13/2024 3:09 PM EDT Body Mass Index 29.87 08/13/2024 3:09 PM EDT Plan of Treatment Upcoming Encounters Date Type Department Care Team (Late st Contact Info) Description 09/20/2024 2:10 PM EDT Office Visit [facility] - [facility] [address] [facility] [address] [place] [address] Adamaris Hammond NP [address] [place] [address] 05/31/2025 3:00 PM EDT Ancillary Procedure [facility] Cardiology [facility] - [facility] [address] [facility] [address] [place] [phone] Health Maintenance Due Date Last Done Comments Diabetes: Annual Foot Exam 1955 Diabetes: Annual Retina Eye Exam 1955 DTaP,Tdap,and Td Vaccines (1 - Tdap) 1964 Zoster Vaccines (1 of 2) 1964 Pneumococcal Vaccine: 50+ Years (2 of 2 - PCV) 07/10/2015 07/09/2014 RSV Immunization Adult Patients (1 - 1-dose 75+ series) 2020 Depression Screening 02/14/2022 Hepatitis C Screening 02/14/2022 COVID-19 Vaccine ( season) 2023 02/15/2021, 06/17/2020 Diabetes: Annual Urine Albumin-Creatinine Ratio (uACR) 08/13/2024 Diabetes: Blood Sugar Control Test (HGBA1C) 08/13/2024 Influenza Vaccine (Season Ended) 2024 Social Influencers of Health Screening 07/27/2025 07/27/2024 Diabetes: Annual GFR (Glomerular Filtration Rate) 08/17/2025 08/17/2024, 08/16/2024, 08/15/2024, Additional history exists Falls Risk Assessment 08/17/2025 08/17/2024 Hypertension/CHF/CAD Annual BMP Blood Test 08/17/2025 08/17/2024, 08/16/2024, 08/15/2024, Additional history exists Cholesterol Screening (Lipid Panel) [...] this topic Medical Devices Implanted Type Area Lens Marker Device Identifier Shelf Expiration Date Model / Serial / Lot [employer] Intica 7 Vr-T Dx [id number] Implanted:06/06 (Quantity not on file) Cardiac ICD [employer] INTICA 7 VR-T DX / [id number] / Procedures Procedure Name Priority Date/Time Associated Diagnosis Comments CARDIAC DEVICE CHECK- REMOTE- MURJ Routine 08/29/2024 12:22 AM EDT ECG ANNOTATED 08/18/2024 LAVENDER - EDTA Routine 08/17/2024 6:04 AM EDT EXTRA TUBES Routine 08/17/2024 6:04 AM EDT PHOSPHORUS Routine 08/17/2024 6:04 AM EDT MAGNESIUM Routine 08/17/2024 6:04 AM EDT BASIC METABOLIC PANEL Routine 08/17/2024 6:04 AM EDT OXYGEN THERAPY, ADULT Routine 08/16/2024 8:02 AM EDT CBC WITH AUTO DIFFERENTIAL Routine 08/16/2024 6:52 AM EDT CBC AND DIFFERENTIAL Routine 08/16/2024 6:52 AM EDT BASIC METABOLIC PANEL Routine 08/16/2024 6:52 AM EDT OXYGEN THERAPY, ADULT Routine 08/15/2024 8:[address] HEAD WO CONTRAST STAT 08/15/2024 1 2:58 PM EDT AMMONIA Routine 08/15/2024 9:05 AM EDT VENOUS BLOOD GAS Routine 08/15/2024 9:05 AM EDT OXYGEN THERAPY, ADULT Routine 08/15/2024 8:02 AM EDT HEPATIC FUNCTION PANEL Add-On 5:28 AM EDT CBC WITH AUTO DIFFERENTIAL Routine 08/15/2024 5:28 AM EDT MAGNESIUM Routine 08/15/2024 5:28 AM EDT BASIC METABOLIC PANEL Routine 08/15/2024 5:28 AM EDT CBC AND DIFFERENTIAL Routine 08/15/2024 5:28 AM EDT OXYGEN THERAPY, ADULT Routine 08/14/2024 8:01 PM EDT ECG 12-LEAD STAT 08/14/2024 10:17 AM EDT OXYGEN THERAPY, ADULT Routine 08/14/2024 8:02 AM EDT LACTATE Routine 08/14/2024 7:33 AM EDT VITAMIN B12 AND FOLATE Add-On 6:06 AM EDT THYROID STIMULATING HORMONE Add-On 08/14/2024 6:06 AM EDT HEPATIC FUNCTION PANEL Add-On 6:06 AM EDT CBC WITH AUTO DIFFERENTIAL Routine 08/14/2024 6:06 AM EDT CBC AND DIFFERENTIAL Routine 08/14/2024 6:06 AM EDT BASIC METABOLIC PANEL Routine 08/14/2024 6:06 AM EDT OXYGEN THERAPY, ADULT Routine 08/14/2024 4:32 AM EDT OXYGEN THERAPY, ADULT Routine 08/14/2024 4:32 AM EDT CLOSTRIDIUM DIFFICILE TOXIN Routine 08/14/2024 12:52 AM EDT GASTROINTESTINAL PATHOGENS BY PCR Routine 08/14/2024 12:52 AM EDT B-TYPE NATRIURETIC PEPTIDE STAT 08/13/2024 11:05 PM EDT LACTATE, WITH REFLEX Timed 08/13/2024 11:05 PM EDT XR CHEST 1 VIEW STAT 08/13/2024 8:28 PM EDT LYNN URINE CULTURE TUBE STAT 08/14/19 5:52 PM EDT URINALYSIS WITH REFLEX MICROSCOPIC AND CULTURE STAT 08/13/2024 5:52 PM EDT URINALYSIS WITH REFLEX MICROSCOPIC AND CULTURE STAT 08/13/2024 5:52 PM EDT CULTURE URINE STAT 08/13/2024 5:[address] ABDOMEN PELVIS WO CONTRAST STAT 08/13/2024 3:18 PM EDT THYROID STIMULATING HORMONE WITH REFLEX TO FREE T4 AND FREE T3 Add-On 08/13/2024 3:04 PM EDT LACTATE, WITH REFLEX STAT 08/13/2024 3:04 PM EDT CBC WITH AUTO DIFFERENTIAL STAT 08/13/2024 3:04 PM EDT BASIC METABOLIC PANEL STAT 08/13/2024 3:04 PM EDT CBC AND DIFFERENTIAL STAT 08/13/2024 3:04 PM EDT CULTURE BLOOD STAT 08/13/2024 3:04 PM EDT ECG 12-LEAD STAT 08/13/2024 2:42 PM EDT CARDIAC DEVICE CHECK- REMOTE- MURJ Routine 08/08/2024 11:18 AM EDT ECG ANNOTATED 08/01/2024 CBC WITH AUTO DIFFERENTIAL Routine 07/30/2024 7:14 AM EDT BASIC METABOLIC PANEL Routine 07/30/2024 7:14 AM EDT CBC AND DIFFERENTIAL Routine 07/30/2024 7:14 AM EDT CBC WITH AUTO DIFFERENTIAL Routine 07/29/2024 6:07 AM EDT BASIC METABOLIC PANEL Routine 07/29/2024 6:07 AM EDT CBC AND DIFFERENTIAL Routine 07/29/2024 6:07 AM EDT ECG 12-LEAD Routine 07/29/2024 2:09 AM EDT CBC WITH AUTO DIFFERENTIAL Routine 07/28/2024 6:00 AM EDT BASIC METABOLIC PANEL Routine 07/28/2024 6:00 AM EDT CBC AND DIFFERENTIAL Routine 07/28/2024 6:00 AM EDT THYROID STIMULATING HORMONE Routine 07/27/2024 6:02 AM EDT DIGOXIN LEVEL Timed 07/27/2024 6:02 AM EDT CBC WITH AUTO DIFFERENTIAL Routine 07/27/2024 6:02 AM EDT MAGNESIUM Routine 07/27/2024 6:02 AM EDT CBC AND DIFFERENTIAL Routine 07/27/2024 6:02 AM EDT BASIC METABOLIC PANEL Routine 07/27/2024 6:02 AM EDT XR CHEST 1 VIEW STAT 07/27/2024 1:06 AM EDT LACTATE, WITH REFLEX STAT 07/27/2024 12:50 AM EDT CULTURE BLOOD STAT 07/27/2024 12:30 AM EDT RESPIRATORY VIRUS PANEL MOLECULAR STUDY STAT 07/27/2024 12:19 AM EDT HEPATIC FUNCTION PANEL Add-On 12:04 AM EDT B-TYPE NATRIURETIC PEPTIDE STAT 07/27/2024 12:04 AM EDT BASIC METABOLIC PANEL STAT 07/27/2024 12:04 AM EDT CULTURE BLOOD STAT 07/27/2024 12:02 AM EDT LYNN URINE CULTURE TUBE STAT 07/27/19 11:29 PM EDT URINALYSIS WITH REFLEX MICROSCOPIC AND CULTURE STAT 07/26/2024 11:29 PM EDT URINALYSIS WITH REFLEX MICROSCOPIC AND CULTURE STAT 07/26/2024 11:29 PM EDT CULTURE URINE STAT 07/26/2024 11:29 PM EDT ECG 12-LEAD STAT 07/26/2024 11:00 PM EDT CBC WITH AUTO DIFFERENTIAL STAT 07/26/2024 10:54 PM EDT CBC AND DIFFERENTIAL STAT 07/26/2024 10:54 PM EDT ECG ANNOTATED 06/16/2024 CBC WITH AUTO DIFFERENTIAL Routine 06/15/2024 6:34 AM EDT BASIC METABOLIC PANEL Routine 06/15/2024 6:34 AM EDT CBC AND DIFFERENTIAL Routine 06/15/2024 6:34 AM EDT RESPIRATORY VIRUS PANEL MOLECULAR STUDY Routine 06/14/2024 10:41 AM EDT THYROXINE FREE Add-On 06/14/2024 5:07 AM EDT CREATINE KINASE AND CKMB Add-On 025 5:07 AM EDT CBC WITH AUTO DIFFERENTIAL [...] PM EDT LYNN URINE CULTURE TUBE Routine 06/14/19 11:08 PM EDT EXTRA TUBES Routine 06/13/2024 11:08 PM EDT URINALYSIS WITH REFLEX MICROSCOPIC STAT 06/13/2024 11:08 PM EDT URINALYSIS WITH REFLEX MICROSCOPIC STAT 06/13/2024 11:08 PM EDT CULTURE URINE Add-On 06/13/2024 11:08 PM EDT [id number], RSV, FLU A AND B QUALITATIVE RT-PCR, [...] REMOTE- MURJ Routine 06/09/2024 11:29 PM EDT LIPID PANEL Routine 04/18/2022 from Last 3 Months or Most Recently Relevant to Health Maintenance Results * Cardiac device check - Remote- MURJ (08/29/2024 12:22 AM EDT) Only the most recent of3 resultswithin the time period is included. Date Time Interrogation Session [id number] CV DEVICE CHECK Type Interrogation Session Remote CV DEVICE CHECK Implantable Pulse Generator Lens Marker BIO CV DEVICE CHECK Implantable Pulse Generator Type ICD CV DEVICE CHECK Implantable Pulse Generator Model Intica 7 VR-T DX CV DEVICE CHECK Implantable Pulse Generator Serial Number [id number] CV DEVICE CHECK Implantable Pulse Generator Implant Date 20180620 CV DEVICE CHECK Battery Remaining Percentage 39.00 CV DEVICE CHECK Battery Voltage 3.080 CV D EVICE CHECK Battery PLATE CONDITIONER Trigger 2.850 CV DEVICE CHECK Battery Status Middle of Service CV DEVICE CHECK Capacitor Charge Time 11.500 CV DEVICE CHECK Ryan Statistic RV Percent Paced 56.00 CV DEVICE CHECK Atrial Tachy Statistic AT/AF [place] Percent 0.00 CV DEVICE CHECK Lead Channel Sensing Intrinsic Amplitude 0.500 CV DEVICE CHECK Lead Channel Setting Sensing Sensitivity 0.20 CV DEVICE CHECK Lead Channel RA Pacing Threshold Date 2024-08-21 CV DEVICE CHECK Lead Channel Sensing Intrinsic Amplitude 2.300 CV DEVICE CHECK Lead Channel Setting Sensing Sensitivity 0.80 CV DEVICE CHECK Lead Channel Impedance Value 362 CV DEVICE CHECK Lead Channel Pacing Threshold Amplitude 0.900 CV DEVICE CHECK Lead Channel Pacing Threshold Pulse Width 0.4 CV DEVICE CHECK Lead Channel RV Pacing Threshold Date 2024-08-21 CV DEVICE CHECK Lead Channel Setting Pacing [...] 0 CV DEVICE CHECK Shock Measured Impedance 55 CV DEVICE CHECK Zone Setting Type Category [...] 10 CV DEVICE CHECK Date of Service 2024-11-07 CV DEVICE CHECK Anatomical Region Laterality Modality Device Interroga tion 08/21/2024 1:26 AM EDT Impressions 08/28/2024 10:50 AM EDT Non-sustained Ventricular Tachycardia * Stored EGMs are consistent with or suggestive of Non-sustained VT * Total episodes: 1 13~ beats Normal Remote: With Events * Normal Device Function * Events or Alerts: 1 8 beat NSVT * Battery: Battery is at 39%, * Sensing, impedance and thresholds reviewed * Programmed parameters reviewed * Presenting rhythm reviewed * Heart Rate Histograms reviewed Narrative Procedure Note Bahman Capps MD - 08/29/2024 IMPRESSION: Non-sustained Ventricular Tachycardia * Stored EGMs are consistent with or suggestive of Non-sustained VT * Total episodes: 1 13~ beats Normal Remote: With Events * Normal Device Function * Events or Alerts: 1 8 beat NSVT * Battery: Battery is at 39%, * Sensing, impedance and thresholds reviewed * Programmed parameters reviewed * Presenting rhythm reviewed * Heart Rate Histograms reviewed us Bahman Capps MD CV IMPLANTABLE CARDIAC DEV ICE PROCEDURES Final Result * ECG-Annotated (08/18/2024) Only the most recent of3 resultswithin the time period is included. us Provider Onbase MD ECG ORDERABLES Final Result * Lavender tube (08/17/2024 6:04 AM EDT) [facility] Extra Tube Hold for add-ons. 08/17/2024 9:01 AM EDT [facility] Comment:Auto resulted. Blood Venous blood specimen / Unknown Venipuncture / Unknown 08/17/2024 6:04 AM EDT 08/17/2024 7:17 AM EDT Micki Duong MD LAB BLOOD ORDERABLES Final Res ult [facility] [address] [place] [address], [place] [phone] * (ABNORMAL) Phosphorus (08/17/2024 6:04 AM EDT) Pathologist [facility] Phosphorus 2.0(L) 2.5 - 4.5 mg/dL LAB CHEMISTRY METHOD 08/17/2024 8:18 AM EDT [facility] Blood Venous blood specimen / Unknown Venipuncture / Unknown 08/17/2024 6:04 AM EDT 08/17/2024 7:15 AM EDT Cassie [facility] LAB BLOOD ORDERABLES Final Result [facility] [address] [place] [address], [place] [phone] * (ABNORMAL) Magnesium (08/17/2024 6:04 AM EDT) Only the most recent of4 resultswithin the time period is included. Magnesium 1.7(L) 1.9 - 2.6 mg/dL LAB CHEMISTRY METHOD 08/17/2024 8:18 AM EDT [facility] Blood Venous blood specimen / Unknown Venipuncture / Unknown 08/17/2024 6:04 AM EDT 08/17/2024 7:15 AM EDT Cassie [facility]ARN[facility] LAB BLOOD ORDERABLES Final Result Performing Organization Address [facility] de Phone Number [facility] [address] [place] [address], [place] [phone] * (ABNORMAL) Basic metabolic panel (08/17/2024 6:04 AM EDT) Only the most recent of12 resultswithin the time period is included. Sodium 138 133 - 145 mmol/L LAB CHEMISTRY METHOD 08/17/2024 8:18 AM [facility] Potassium 4.0 3.5 - 5.5 mmol/L LAB CHEMISTRY METHOD 08/17/2024 8:18 AM EDT [facility] Chloride 105 96 - 110 mmol/L LAB CHEMISTRY METHOD 08/17/2024 8:18 AM T [facility] CO2 27 21 - 32 mmol/L LAB CHEMISTRY METHOD 08/17/2024 8:18 AM T [facility] Anion Gap 6 3 - 11 LAB CHEMISTRY METHOD 08/17/2024 8:18 AM [facility] Glucose 99 70 - 100 mg/dL LAB CHEMISTRY METHOD 08/17/2024 8:18 AM EDT [facility] BUN 24 5 - 25 mg/dL LAB CHEMISTRY METHOD 08/17/2024 8:18 AM EDT [facility] Creatinine 1.56(H) 0.70 - 1.30 mg/dL LAB CHEMISTRY METHOD 08/17/2024 8:18 AM EDT [facility] eGFR 45(L) >=60 mL/min/1. 73m2 LAB CHEMISTRY METHOD 08/17/2024 8:18 AM EDT [facility] Comment:Calculation based on the Chronic Kidney Disease Epidemiology Collaboration (CKD-EPI) equation refit without adjustment for race. BUN/Creatinine Ratio 15.4 LAB CHEMISTRY METHOD 08/17/2024 8:18 AM EDT [facility] Calcium 9.2 8.5 - 10.5 mg/dL LAB CHEMISTRY METHOD 08/17/2024 8:18 AM T [facility] Blood Venous blood specimen / Unknown Venipuncture / Unknown 08/17/2024 6:04 AM EDT 08/17/2024 7:15 AM EDT us Cassie [facility] LAB BLOOD ORDERABLES Final Result [facility] [address] [place] [address], [place] [phone] * (ABNORMAL) CBC auto differential (08/16/2024 6:52 AM EDT) Only the most recent of12 resultswithin the time period is included. WBC 4.6(L) 4.8 - 10.8 K/mcL LAB HEMETOLOGY METHOD 08/16/2024 7:29 AM EDT [facility] RBC 3.30(L) 4.50 - 5.50 M/mcL LAB HEMETOLOGY METHOD 08/16/2024 7:29 AM EDT [facility] Hemoglobin 10.5(L) 13.5 - 17.5 g/dL LAB HEMETOLOGY METHOD 08/16/2024 7:29 AM [facility] Hematocrit 33.3(L) 42.0 - 54.0 % LAB HEMETOLOGY METHOD 08/16/2024 7:29 AM [facility] MCV 100.9(H) 79.0 - 98.0 FL LAB HEMETOLOGY METHOD 08/16/2024 7:29 AM [facility] MCH 31.8 27.0 - 32.0 pcg LAB HEMETOLOGY METHOD 08/16/2024 7:29 AM [facility] MCHC 31.5(L) 32.0 - 37.0 g/dL LAB HEMETOLOGY METHOD 08/16/2024 7:29 AM [facility] RDW 14.6 11.0 - 15.0 % LAB HEMETOLOGY METHOD 08/16/2024 7:29 AM [facility] Platelets 51(L) 130 - 400 K/mcL LAB HEMETOLOGY METHOD 08/16/2024 7:29 AM [facility] Comment:previously verified by slide MPV 13.3(H) 7.0 - 11.0 FL LAB HEMETOLOGY METHOD 08/16/2024 7:29 AM [facility] NRBC 1.5(H) <1.0 % LAB HEMETOLOGY METHOD 08/16/2024 7:29 AM [facility] NRBC Absolute 0.07 <0.10 K/mcL LAB HEMETOLOGY METHOD 08/16/2024 7:29 AM [facility] Neutrophils Relative 56.2 % LAB HEMETOLOGY METHOD 08/16/2024 7:29 AM [facility] Lymphocytes Relative 16.7 % LAB HEMETOLOGY METHOD 08/16/2024 7:29 AM [facility] Monocytes Relative 23.5 % LAB HEMETOLOGY METHOD 08/16/2024 7:29 AM EDT [facility] Eosinophils Relative 2.2 % LAB HEMETOLOGY METHOD 08/16/2024 7:29 AM EDT [facility] Basophils Relative 0.7 % LAB HEMETOLOGY METHOD 08/16/2024 7:29 AM EDT [facility] Immature Granulocytes Relative 0.7 % LAB HEMETOLOGY METHOD 08/16/2024 7:29 AM EDT [facility] Neutrophils Absolute 2.59 1.50 - 7.00 K/mcL LAB HEMETOLOGY METHOD 08/16/2024 7:29 AM EDT [facility] Lymphocytes Absolute 0.77(L) 1.00 - 5.00 K/mcL LAB HEMETOLOGY METHOD 08/16/2024 7:29 AM EDT [facility] Monocytes Absolute 1.08(H) 0.20 - 1.00 K/mcL LAB HEMETOLOGY METHOD 08/16/2024 7:29 AM EDT [facility] Eosinophils Absolute 0.10 0.00 - 0.50 K/mcL LAB HEMETOLOGY METHOD 08/16/2024 7:29 AM EDT [facility] Basophils Absolute 0.03 0.00 - 0.20 K/mcL LAB HEMETOLOGY METHOD 08/16/2024 7:29 AM EDT [facility] Immature Granulocytes Absolute 0.03 0.00 - 0.03 K/mcL LAB HEMETOLOGY METHOD 08/16/2024 7:29 AM EDT [facility] Blood Venous blood specimen / Unknown Venipuncture / Unknown 08/16/2024 6:52 AM EDT 08/16/2024 6:58 AM EDT us Cassie [facility] LAB BLOOD ORDERABLES Final Result [facility] [address] [place] [address], [place] [phone] * CT Head wo Contrast (08/15/2024 12:58 PM EDT) Anatomical Region Laterality Modality Head and Neck Computed Tomogra phy 08/15/2024 12:5 8 PM EDT Impressions 08/15/2024 1:01 PM EDT NO ACUTE INTRACRANIAL ABNORMALITY. -------- FINAL REPORT -------- Dictated By: Cassius Gutierres Dictated Date: 08/15/2024 12:58 ET Assigned Physician: Cassius Gutierres Reviewed and Electronically Signed By: Cassius Gutierres Signed Date: 08/15/2024 13:01 ET Workstation ID: [id number] Transcribed By: Self Edit Transcribed Date: 08/15/2024 12:58 ET Narrative 08/15/2024 1:01 PM EDT PROCEDURE: HEAD CT INDICATION: Mental status change, unknown cause TECHNIQUE: CT of the head without intravenous contrast. Multiplanar reformats. The examination was performed utilizing dose reduction techniques. Total DLP 717 COMPARISON: 08/28/2022 FINDINGS: No acute territorial infarct, mass effect, or intracranial hemorrhage. Moderate scattered periventricular and subcortical white matter hypodensities are most likely related to chronic small vessel ischemic change. 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 CSF spaces commensurate for degree of volume loss. No hydrocephalus. Visualized paranasal sinuses are clear. Fluid in both mastoids. No calvarial fracture. Procedure Note Cassius Gutierres MD - 08/15/2024 PROCEDURE: HEAD CT INDICATION: Mental status change, unknown cause TECHNIQUE: CT of the head without intravenous contrast. Multiplanarreformats. The examination was performed utilizing dose reductiontechniques. Total DLP 717 COMPARISON: 08/28/2022 FINDINGS: No acute territorial infarct, mass effect, or intracranial hemorrhage. Moderate scattered periventricular and subcortical white matterhypodensities are most likely related to chronic small vessel ischemicchange. 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 CSF spaces commensurate for degree of volume loss. No hydrocephalus. Visualized paranasal sinuses are clear. Fluid in both mastoids. No calvarial fracture. IMPRESSION: NO ACUTE INTRACRANIAL ABNORMALITY. -------- FINAL REPORT -------- Dictated By: Cassius Gutierres Dictated Date: 08/15/2024 12:58 ET Assigned Physician: Cassius Gutierres Reviewed and Electronically Signed By: Cassius Gutierres Signed Date: 08/15/2024 13:01 ET Workstation ID: [id number] Transcribed By: Self Edit Transcribed Date: 08/15/2024 12:58 ET Micki Duong MD IMG CT PROCEDURES Final Result * (ABNORMAL) Venous blood gas (08/15/2024 9:05 AM EDT) Only the most recent of2 resultswithin the time period is included. pH, Landen 7.32 7.32 - 7.42 pH 08/15/2024 9:10 AM EDT [facility] pCO2, Landen 52(H) 41 - 51 mmHg 08/15/2024 9:10 AM EDT [facility] pO2, Landen 27 25 - 40 mmHg 08/15/2024 9:10 AM EDT [facility] HCO3, Venous 23.7 22.0 - 26.0 mmol/L 08/15/2024 9:10 AM EDT [facility] O2 Sat, Landen 40.7 % 08/15/2024 9:10 AM EDT [facility] Base Excess, Landen 0.1 -2.0 - 2.0 mmol/L 08/15/2024 9:10 AM EDT [facility] Blood Venous blood specimen / Unknown Venipuncture / Unknown 08/15/2024 9:05 AM EDT 08/15/2024 9:08 AM EDT Micki Duong MD LAB BLOOD ORDERABLES Final Res ult [facility] [address] [place] [address], * Ammonia (08/15/2024 9:05 AM EDT) Pathologist [facility] Ammonia 20 11 - 35 mcmol/L LAB CHEMISTRY METHOD 08/15/2024 9:40 AM [facility] Blood Venous blood specimen / Unknown Venipuncture / Unknown 08/15/2024 9:05 AM EDT 08/15/2024 9:08 AM EDT us Micki Duong MD LAB BLOOD ORDERABLES Final Res ult [facility] [address] [place] [address], [place] [phone] * (ABNORMAL) Hepatic function panel (08/15/2024 5:28 AM EDT) Only the most recent of3 resultswithin the time period is included. [facility] Total Protein 7.0 6.0 - 8.0 g/dL LAB CHEMISTRY METHOD 08/15/2024 9:08 AM [facility] Albumin 2.4(L) 3.2 - 5.0 g/dL LAB CHEMISTRY METHOD 08/15/2024 9:08 AM [facility] Total Bilirubin 2.1(H) 0.0 - 1.4 mg/dL LAB CHEMISTRY METHOD 08/15/2024 9:08 AM [facility] Bilirubin, Direct 0.9(H) 0.0 - 0.3 mg/dL LAB CHEMISTRY METHOD 08/15/2024 9:08 AM [facility] Bilirubin, Indirect 1.2(H) 0.0 - 1.1 mg/dL LAB CHEMISTRY METHOD 08/15/2024 9:08 AM [facility] ALT (SGPT) 111(H) 10 - 60 unit/L LAB CHEMISTRY METHOD 08/15/2024 9:08 AM [facility] AST (SGOT) 148(H) 10 - 42 unit/L LAB CHEMISTRY METHOD 08/15/2024 9:08 AM EDT [facility] Alkaline Phosphatase 153(H) 42 - 121 unit/L LAB CHEMISTRY METHOD 08/15/2024 9:08 AM EDT [facility] Blood Venous blood specimen / Unknown Venipuncture / Unknown 08/15/2024 5:28 AM EDT 08/15/2024 5:59 AM EDT Micki Duong MD LAB BLOOD ORDERABLES Final Res ult Performing Organization Address City/[facility]/ZIP Co de Phone Number [facility] [address] [place] [address], [place] [phone] * ECG 12 lead (08/14/2024 10:17 AM EDT) Only the most recent of6 resultswithin the time period is included. Ventricular Rate ECG 56 BPM GEMUSE Atrial Rate 22 BPM GEMUSE QRS Duration 138 ms GEMUSE Q-T Interval 484 ms GEMUSE QTc 467 ms GEMUSE R Wilson -92 degrees GEMUSE T Wilson 91 degrees GEMUSE ECG Interpretation Ventricular-pa golden rhythm with occasional Premature ventricular complexes Abnormal ECG When compared with ECG of 13-AUG-2024 14:42, (unconfirmed) Premature ventricular complexes are now Present Vent. rate has increased BY 6 BPM Confirmed by TOMMIE HARRINGTON ([id number]) on 08/14/2024 9:37:52 PM GEMUSE 08/14/2024 10:1 7 AM EDT 08/14/2024 9:37 PM EDT us Micki Duong MD ECG ORDERABLES Final Result Performing Organization Address City/[facility]/ZIP Co de Phone Number GEMUSE * Lactate (08/14/2024 7:33 AM EDT) Lactate 2.0 0.4 - 2.0 mmol/L LAB CHEMISTRY METHOD 08/14/2024 8:26 AM EDT [facility] Blood Venous blood specimen / Unknown Venipuncture / Unknown 08/14/2024 7:33 AM EDT 08/14/2024 8:00 AM EDT Cassie [facility] LAB BLOOD ORDERABLES Final Result Performing Organization Address [facility] Co de Phone Number [facility] [address] [place] [address], [place] [phone] * (ABNORMAL) Vitamin B12 and folate (08/14/2024 6:06 AM EDT) Vitamin B-12 1,806(H) 250 - 900 pcg/mL LAB CHEMISTRY METHOD 08/14/2024 4:17 PM EDT [facility] Folate 12.4 2.8 - 17.0 ng/ml LAB CHEMISTRY METHOD 08/14/2024 4:17 PM EDT [facility] Blood Venous blood specimen / Unknown Venipuncture / Unknown 08/14/2024 6:06 AM EDT 08/14/2024 6:18 AM EDT Cassie [facility] LAB BLOOD ORDERABLES Final Result Performing Organization Address [facility] Co de Phone Number [facility] [address] [place] [address], * Thyroid stimulating hormone (08/14/2024 6:06 AM EDT) Only the most recent of2 resultswithin the time period is included. TSH 3.45 0.40 - 4.00 mcIU/mL LAB CHEMISTRY METHOD 08/14/2024 4:56 PM EDT [facility] Blood Venous blood specimen / Unknown Venipuncture / Unknown 08/14/2024 6:06 AM EDT 08/14/2024 6:18 AM EDT Micki Duong MD LAB BLOOD ORDERABLES Final Res ult [facility] [address] [place] [address], * Gastrointestinal pathogens molecular study (08/14/2024 12:52 AM EDT) Campylobacter Detection by PCR Not Detected Not Detected LAB MICROBIOLOGY METHOD 5 3:27 AM EDT [facility] Plesiomonas shigelloides Detection by PCR Not Detected Not Detected LAB MICROBIOLOGY METHOD 5 3:27 AM EDT [facility] Salmonella Detection by PCR Not Detected Not Detected LAB MICROBIOLOGY METHOD 5 3:27 AM EDT [facility] Vibrio Detection by PCR Not Detected Not Detected LAB MICROBIOLOGY METHOD 5 3:27 AM EDT [facility] Vibrio cholerae Detection by PCR Not Detected Not Detected LAB MICROBIOLOGY METHOD 5 3:27 AM EDT [facility] Yersinia enterocolitica Detection by PCR Not Detected Not Detected LAB MICROBIOLOGY METHOD 5 3:27 AM EDT [facility] Enteroaggregative E coli EAEC Detection by PCR Not Detected Not Detected LAB MICROBIOLOGY METHOD 5 3:27 AM EDT [facility] Enteropathogenic E coli EPEC Detection Not Detected Not Detected LAB MICROBIOLOGY METHOD 5 3:27 AM EDT [facility] Enterotoxigenic E coli ETEC LTST Detection Not Detected Not Detected LAB MICROBIOLOGY METHOD 5 3:27 AM EDT [facility] Shiga-like toxin producing E coli STEC STX1 STX2 Det Not Detected Not Detected LAB MICROBIOLOGY METHOD 5 3:27 AM EDT [facility] Shigella Enteroinvasive E coli EIEC Detection Not Detected Not Detected LAB MICROBIOLOGY METHOD 5 3:27 AM EDT [facility] Cryptosporidium Detection by PCR Not Detected Not Detected [facility] Cyclospora cayetanensis Detection by PCR Not Detected Not Detected LAB MICROBIOLOGY METHOD 5 3:27 AM [facility] Entamoeba histolytica Detection by PCR Not Detected Not Detected LAB MICROBIOLOGY METHOD 5 3:27 AM [facility] Giardia lamblia Detection by PCR Not Detected Not Detected LAB MICROBIOLOGY METHOD 5 3:27 AM [facility] Adenovirus F 40 41 Detection by PCR Not Detected Not Detected LAB MICROBIOLOGY METHOD 5 3:27 AM [facility] Astrovirus Detection by PCR Not Detected Not Detected LAB MICROBIOLOGY METHOD 5 3:27 AM [facility] Norovirus GI GII Detection by PCR Not Detected LAB MICROBIOLOGY METHOD 5 3:27 AM [facility] Sapovirus Detection by PCR Not Detected Not Detected LAB MICROBIOLOGY METHOD 5 3:27 AM [facility] Rotavirus A Detection by PCR Not Detected Not Detected LAB MICROBIOLOGY METHOD 5 3:27 AM [facility] Stool Rectum structure / Unknown Non-blood Collection / Unknown 08/14/2024 12:52 AM EDT 08/14/2024 2:10 AM EDT [facility] - 08/14/2024 3:27 AM EDT PCR testing is much more sensitive than traditional techniques and allows for the detection of low numbers of stool pathogens. The clinical correlation of PCR results with the need for treatment and clinical outcomes has not been established. Therefore the results of PCR testing for stool pathogens must be taken into clinical context when making treatment decisions. This is a diagnostic test only, repeat testing for cure is not advised. You may consider infectious disease consult for additional guidance. Testing Performed by [facility] Kevon Hassan MD LAB MICROBIOLOGY - GENERAL ORDERABLES Final Result Performing Organization Address [facility] Co de Phone Number [facility] [address] [place] [address], [place] [phone] * Clostridium difficile toxin (08/14/2024 12:52 AM EDT) [facility] Clostridium difficile GDH Antigen Negative Negative 08/14/2024 2:47 AM EDT [facility] C difficile Toxins A+B, EIA Negative Negative 08/14/2024 2:47 AM EDT [facility] Comment:NEGATIVE FOR TOXIN P RODUCING CLOSTRIDIOIDES DIFFICILE, NO ADDITIONAL TESTING IS NECESSARY. Stool Rectum structure / Unknown Non-blood Collection / Unknown 08/14/2024 12:52 AM EDT 08/14/2024 1:58 AM EDT us Kevon Hassan MD LAB MICROBIOLOGY - GENERAL ORDERABLES Final Result Performing Organization Address [facility] de Phone Number [facility] [address] [place] [address], [place] [phone] * (ABNORMAL) Lactate, with reflex (08/13/2024 11:05 PM EDT) Only the most recent of3 resultswithin the time period is included. [facility] LACTIC ACID 3.0(H) 0.4 - 2.0 mmol/L LAB CHEMISTRY METHOD 08/13/2024 11:50 PM EDT [facility] Blood Venous blood specimen / Unknown Venipuncture / Unknown 08/13/2024 11:05 PM EDT 08/13/2024 11:17 PM EDT us Kevon Hassan MD LAB BLOOD ORDERABLES Final Result Performing Organization Address [facility] Co de Phone Number [facility] [address] [place] [address], [place] [phone] * (ABNORMAL) B-type natriuretic peptide (08/13/2024 11:05 PM EDT) Only the most recent of3 resultswithin the time period is included. BNP 1,431(H) <=100 pcg/mL LAB CHEMISTRY METHOD 08/14/2024 12:07 AM EDT [facility] Blood Venous blood specimen / Unknown Venipuncture / Unknown 08/13/2024 11:05 PM EDT 08/13/2024 11:17 PM EDT us Kevon Hassan MD LAB BLOOD ORDERABLES Final Result [facility] ([facility]) [facility] [address] [place] [address], [place] [phone] * XR Chest 1 View (08/13/2024 8:28 PM EDT) Only the most recent of3 resultswithin the time period is included. Anatomical Region Laterality Modality Body Radiographic Kari ging 08/14/2024 8:21 AM EDT Impressions 08/14/2024 8:22 AM EDT Impression: 1. Stable cardiomegaly with ICD in place. 2. Lungs grossly clear. Telerad BRONWYN ([id number]) -------- FINAL REPORT -------- Dictated By: Raya Hermosillo Dictated Date: 08/14/2024 08:21 ET Assigned Physician: Raya Hermosillo Reviewed and Electronically Signed By: Raya Hermosillo Signed Date: 08/14/2024 08:22 ET Workstation ID: [id number] Transcribed By: Self Edit Transcribed Date: 08/14/2024 08:21 ET Narrative 08/14/2024 8:22 AM EDT History: Dyspnea. Comparison: 07/27/24, 10/07/22 Findings: Semiupright portable AP chest from 8:20 PM. Marked enlargement of the cardiac silhouette is without significant change. Sternal sutures are again noted. A left subclavian transvenous ICD is again seen, with lead terminating in the expected location of the right ventricular apex. Hilar contours are stable and the pulmonary vascularity is within normal limits. The lungs are grossly clear. Procedure Note Raya Hermosillo MD - 08/14/2024 History: Dyspnea. Comparison: 07/27/24, 10/07/22 Findings: Semiupright portable AP chest from 8:20 PM. Marked enlargement of thecardiac silhouette is without significant change. Sternal sutures areagain noted. A left subclavian transvenous ICD is again seen, with leadterminating in the expected location of the right ventricular apex. Hilarcontours are stable and the pulmonary vascularity is within normal limits.The lungs are grossly clear. IMPRESSION: Impression: 1. Stable cardiomegaly with ICD in place. 2. Lungs grossly clear. Telerad BRONWYN ([id number]) -------- FINAL REPORT -------- Dictated By: Raya Hermosillo Dictated Date: 08/14/2024 08:21 ET Assigned Physician: Raya Hermosillo Reviewed and Electronically Signed By: Raya Hermosillo Signed Date: 08/14/2024 08:22 ET Workstation ID: [id number] Transcribed By: Self Edit Transcribed Date: 08/14/2024 08:21 ET us Kevon Hassan MD IMG XR PROCEDURES Final Res ult * (ABNORMAL) Urinalysis with reflex microscopic and culture (08/13/2024 5:52 PM EDT) Only the most recent of2 resultswithin the time period is included. Specific [place] Urine 1.011 1.003 - 1.030 LAB URINALYSIS - AUTOMATED METHOD 08/13/2024 6:18 PM EDT [facility] pH, Urine 6.0 5.0 - 8.0 pH LAB URINALYSIS - AUTOMATED METHOD 08/13/2024 6:18 PM EDT [facility] Leukocytes, Urine Large(A) Negative LAB URINALYSIS - AUTOMATED METHOD 08/13/2024 6:18 PM EDT [facility] Nitrite, Urine Negative Negative LAB URINALYSIS - AUTOMATED METHOD 08/13/2024 6:18 PM [facility] Protein, Urine 30(A) <=Trace mg/dL LAB URINALYSIS - AUTOMATED METHOD 08/13/2024 6:18 PM [facility] Glucose, Urine Negative Negative mg/dL LAB URINALYSIS - AUTOMATED METHOD 08/13/2024 6:18 PM [facility] Ketones, Urine Negative Negative mg/dL LAB URINALYSIS - AUTOMATED METHOD 08/13/2024 6:18 PM [facility] Urobilinogen , Urine 0.2 0.2 - 1.0 mg/dL LAB URINALYSIS - AUTOMATED METHOD 08/13/2024 6:18 PM [facility] Bilirubin, Urine Negative Negative LAB URINALYSIS - AUTOMATED METHOD 08/13/2024 6:18 PM [facility] Blood, Urine Moderate(A) Negative LAB URINALYSIS - AUTOMATED METHOD 08/13/2024 6:18 PM [facility] RBC, Urine 12.3(H) 0 - 4 /HPF LAB URINALYSIS - AUTOMATED METHOD 08/13/2024 6:18 PM [facility] WBC, Urine 112.5(H) 0 - 4 /HPF LAB URINALYSIS - AUTOMATED METHOD 08/13/2024 6:18 PM [facility] Squamous Epithelial, Urine 19 0 - 60 /LPF LAB URINALYSIS - AUTOMATED METHOD 08/13/2024 6:18 PM [facility] Bacteria, Urine Few(A) Negative /HPF LAB URINALYSIS - AUTOMATED METHOD 08/13/2024 6:18 PM [facility] Hyaline Casts, Urine 1.2 0 - 3 /LPF LAB URINALYSIS - AUTOMATED METHOD 08/13/2024 6:18 PM [facility] Urine Urine specimen obtained by clean catch procedure / Unknown Non-blood Collection / Unknown 08/13/2024 5:52 PM EDT 08/13/2024 6:03 PM EDT Kevon [facility] URINE ORDERABLES Marjan l Result Performing Organization Address [facility]/ZIP Co de Phone Number [facility] [address] [place] [address], [place] [phone] * Lynn urine culture tube (08/13/2024 5:52 PM EDT) Only the most recent of3 resultswithin the time period is included. Pathologist [facility] Extra Tube Hold for add-ons. 08/13/2024 8:01 PM EDT [facility] Comment:Auto resulted. Urine Urine specimen obtained by clean catch procedure / Unknown Non-blood Collection / Unknown 08/13/2024 5:52 PM EDT 08/13/2024 6:03 PM EDT Kevon [facility] URINE ORDERABLES Marjan l Result Performing Organization Address [facility] de Phone Number [facility] [address] [place] [address], [place] [phone] * (ABNORMAL) Culture urine (08/13/2024 5:52 PM EDT) Only the most recent of3 resultswithin the time period is included. Culture, Urine >100,000 CFU/mL Acinetobacter baumannii complex(A) ABNER 08/17/2024 8:58 AM EDT [facility] Comment: This is an edited result. Previous organism was Gram negative bacilli on 08/14/2024 at 1333 EDT. Culture, Urine 10,000-49,000 CFU/mL Escherichia coli ESBL(A) ABNER 08/17/2024 8:58 AM EDT [facility] Comment: TESTING SUGGESTS AN ESBL(EXTENDED-SPECTRUM BETA-L ACTAMASE PRODUCING STRAIN)WHICH MAY BE RESISTANT C LINICALLY TO ALL CEPHALOSPORINS AND AZTREONAM. The organism value for this result has been updated. These results have been appended to the previously preliminary verified report. Edited result: Previously reported as Escherichia coli on 08/16/2024 at 0838 EDT. Urine Urine specimen obtained by clean catch procedure / Unknown Non-blood Collection / Unknown 08/13/2024 5:52 PM EDT 08/13/2024 6:18 PM EDT [facility]) HOSPITAL [facility] - 08/17/2024 8:58 AM EDT Additional colony types present in insignificant amounts. ESBL reported by secure chat to [facility] [address] and Infection Control Organism Antibiotic Method Susceptibility Acinetobacter baumannii complex Ampicillin/Sulbactam ABNER <=2 ug/ml: Susceptible Acinetobacter baumannii complex Piperacillin/Tazobactam ABNER <=4 ug/ml: Susceptible Acinetobacter baumannii complex Ceftazidime ABNER 2 ug/ml: Susceptible Acinetobacter baumannii complex Meropenem ABNER <=0.25 ug/ml: Susceptible Acinetobacter baumannii complex Ciprofloxacin ABNER 1 ug/ml: Susceptible Acinetobacter baumannii complex Levofloxacin ABNER 1 ug/ml: Susceptible Acinetobacter baumannii complex Trimethoprim/Sulfamethoxaz ole ABNER >=320 ug/ml: Resistant Escherichia coli ESBL Amoxicillin/Clavulanate ABNER 4 ug/ml: Susceptible Escherichia coli ESBL Ampicillin/Sulbactam ABNER 4 ug/ml: Susceptible Escherichia coli ESBL Piperacillin/Tazobactam ABNER <=4 ug/ml: Susceptible Escherichia coli ESBL Cefazolin (Urine) ABNER >=32 ug/ml: Resistant Escherichia coli ESBL Cefoxitin ABNER <=4 ug/ml: Susceptible Escherichia coli ESBL Ceftazidime ABNER 16 ug/ml: Resistant Escherichia coli ESBL Ceftriaxone ABNER >=64 ug/ml: Resistant Escherichia coli ESBL Cefepime ABNER 2 ug/ml: Susceptible Escherichia coli ESBL Meropenem ABNER <=0.25 ug/ml: Susceptible Escherichia coli ESBL Amikacin ABNER 2 ug/ml: Susceptible Escherichia coli ESBL Gentamicin ABNER <=1 ug/ml: Susceptible Escherichia coli ESBL Ciprofloxacin ABNER >=4 ug/ml: Resistant Escherichia coli ESBL Levofloxacin BANER >=8 ug/ml: Resistant Escherichia coli ESBL Nitrofurantoin ABNER <=16 ug/ml: Susceptible Escherichia coli ESBL Trimethoprim/Sulfa methoxaz ole ABNER >=320 ug/ml: Resistant Kevon [facility] LAB MICROBIOLOGY - GENERA L ORDERABLES Final Result [facility] ([facility]) [facility] [address] [place] [address], * CT Abdomen Pelvis wo Contrast (08/13/2024 3:18 PM EDT) Anatomical Region Laterality Modality Body Computed Tomogra phy 08/13/2024 3:47 PM EDT Impressions 08/13/2024 3:59 PM EDT No renal/ureteral calculi or hydronephrosis. Enlarged prostate with multiple prostatic calcifications. Diffuse bladder wall thickening may reflect chronic bladder outlet obstruction versus cystitis. Correlate with urinalysis. Diffuse anasarca, small ascites, and hepatic venous congestion. Correlate for congestive heart failure/volume overload. -------- FINAL REPORT -------- Dictated By: DEION GUILLERMO Dictated Date: 08/13/2024 15:47 ET Assigned Physician: DEION GUILLERMO Reviewed and Electronically Signed By: DEION GUILLERMO Signed Date: 08/13/2024 15:59 ET Workstation ID: [id number] Transcribed By: Self Edit Transcribed Date: 08/13/2024 15:47 ET Narrative 08/13/2024 3:59 PM EDT PROCEDURE: CT abdomen/pelvis INDICATION: Hematuria TECHNIQUE: CT of the abdomen and pelvis without contrast. Multiplanar reformats. The examination was performed utilizing dose reduction techniques. Total DLP 1421 COMPARISON: 09/19/2022 FINDINGS: LOWER THORAX: Multichamber cardiac dilation with pacemaker lead in the right heart. Severe coronary artery calcifications. Mitral valve prosthesis. Bibasilar atelectasis. Diffuse anasarca HEPATOBILIARY: Diffuse hepatic low density. Cirrhotic liver morphology. No focal liver lesions. Cholelithiasis. No biliary duct dilatation. SPLEEN: No splenomegaly. PANCREAS: No focal mass or ductal dilatation. ADRENALS: No nodules. KIDNEYS/URETERS: Vascular calcifications at the renal dash. No renal/ureteral calculi or hydronephrosis.. PELVIC ORGANS/BLADDER: Enlarged prostate with prostate calcifications. Diffuse bladder wall thickening. PERITONEUM / RETROPERITONEUM: Small ascites. No fluid collection or free intraperitoneal air. No retroperitoneal or mesenteric lymphadenopathy. VESSELS: Scattered atherosclerotic calcifications throughout the aorta and its major branches. No aneurysm. GI TRACT: No bowel obstruction or wall thickening. Normal appendix. BONES AND SOFT TISSUES: Diffuse anasarca. Large bilateral hydroceles of the scrotum. Degenerative changes seen throughout the bones. Procedure Note Deion Guillermo MD - 08/13/2024 PROCEDURE: CT abdomen/pelvis INDICATION: Hematuria TECHNIQUE: CT of the abdomen and pelvis without contrast. Multiplanarreformats. The examination was performed utilizing dose reductiontechniques. Total DLP 1421 COMPARISON: 09/19/2022 FINDINGS: LOWER THORAX: Multichamber cardiac dilation with pacemaker lead in theright heart. Severe coronary artery calcifications. Mitral valveprosthesis. Bibasilar atelectasis. Diffuse anasarca HEPATOBILIARY: Diffuse hepatic low density. Cirrhotic liver morphology.No focal liver lesions. Cholelithiasis. No biliary duct dilatation. SPLEEN: No splenomegaly. PANCREAS: No focal mass or ductal dilatation. ADRENALS: No nodules. KIDNEYS/URETERS: Vascular calcifications at the renal dash. Norenal/ureteral calculi or hydronephrosis.. PELVIC ORGANS/BLADDER: Enlarged prostate with prostate calcifications.Diffuse bladder wall thickening. PERITONEUM / RETROPERITONEUM: Small ascites. No fluid collection or freeintraperitoneal air. No retroperitoneal or mesenteric lymphadenopathy. VESSELS: Scattered atherosclerotic calcifications throughout the aorta andits major branches. No aneurysm. GI TRACT: No bowel obstruction or wall thickening. Normal appendix. BONES AND SOFT TISSUES: Diffuse anasarca. Large bilateral hydroceles ofthe scrotum. Degenerative changes seen throughout the bones. IMPRESSION: No renal/ureteral calculi or hydronephrosis. Enlarged prostate with multiple prostatic calcifications. Diffuse bladderwall thickening may reflect chronic bladder outlet obstruction versuscystitis. Correlate with urinalysis. Diffuse anasarca, small ascites, and hepatic venous congestion. Correlatefor congestive heart failure/volume overload. -------- FINAL REPORT -------- Dictated By: DEION GUILLERMO Dictated Date: 08/13/2024 15:47 ET Assigned Physician: DEION GUILLERMO Reviewed and Electronically Signed By: DEION GUILLERMO Signed Date: 08/13/2024 15:59 ET Workstation ID: [id number] Transcribed By: Self Edit Transcribed Date: 08/13/2024 15:47 ET Kevon BARNHART IMG CT PROCEDURES Final R esult * Thyroid stimulating hormone with reflex to free t4 and free t3 (08/13/2024 3:04 PM EDT) Only the most recent of2 resultswithin the time period is included. Pathologist [facility] TSH 3.93 0.40 - 4.00 mcIU/mL LAB CHEMISTRY METHOD 08/13/2024 9:37 PM EDT [facility] Blood Venous blood specimen / Unknown Venipuncture / Unknown 08/13/2024 3:04 PM EDT 08/13/2024 3:23 PM EDT Kevon Hassan MD LAB BLOOD ORDERABLES Final Result Performing Organization Address City/[facility]/ZIP Co de Phone Number [facility] [address] [place] [address], [place] [phone] * Culture blood (08/13/2024 3:04 PM EDT) Only the most recent of5 resultswithin the time period is included. Pathologist [facility] Culture, Blood No growth at 5 days 08/18/2024 4:01 PM EDT [facility] Blood Venous blood specimen / Unknown Venipuncture / Unknown 08/13/2024 3:04 PM EDT 08/13/2024 3:24 PM EDT Kevon BARNHART LAB MICROBIOLOGY - GENERA L ORDERABLES Final Result Performing Organization Address City/[facility]/ZIP Co de Phone Number [facility] [address] [place] [address], [place] [phone] * Digoxin level (07/27/2024 6:02 AM EDT) Only the most recent of2 resultswithin the time period is included. [facility] Digoxin Lvl 1.7 0.5 - 2.0 ng/mL LAB CHEMISTRY METHOD 07/27/2024 7:01 AM EDT [facility] Blood Venous blood specimen / Unknown Venipuncture / Unknown 07/27/2024 6:02 AM EDT 07/27/2024 6:07 AM EDT Kevon Hassan MD LAB BLOOD ORDERABLES Final Result [facility] [address] [place] [address], [place] [phone] * Respiratory virus panel molecular study (07/27/2024 12:19 AM EDT) Only the most recent of2 resultswithin the time period is included. [facility] Adenovirus Detection by PCR Not Detected Not Detected LAB MICROBIOLOGY METHOD 07/27/2024 1:45 AM EDT [facility] Influenza A PCR Not Detected Not Detected LAB MICROBIOLOGY METHOD 07/27/2024 1:45 AM EDT [facility] Influenza B PCR Not Detected Not Detected LAB MICROBIOLOGY METHOD 07/27/2024 1:45 AM EDT [facility] Coronavirus 229E Not Detected Not Detected LAB MICROBIOLOGY METHOD 07/27/2024 1:45 AM EDT [facility] Coronavirus HKU1 Not Detected Not Detected LAB MICROBIOLOGY METHOD 07/27/2024 1:45 AM EDT [facility] Coronavirus OC43 Not Detected Not Detected LAB MICROBIOLOGY METHOD 07/27/2024 1:45 AM EDT [facility] Coronavirus NL63 Not Detected Not Detected LAB MICROBIOLOGY METHOD 07/27/2024 1:45 AM EDT [facility] Parainfluenza Virus 1 Not Detected Not Detected LAB MICROBIOLOGY METHOD 07/27/2024 1:45 AM EDT [facility] Parainfluenza Virus 2 Not Detected Not Detected LAB MICROBIOLOGY METHOD 07/27/2024 1:45 AM EDT [facility] Parainfluenza Virus 3 Not Detected Not Detected LAB MICROBIOLOGY METHOD 07/27/2024 1:45 AM EDT [facility] Parainfluenza Virus 4 Not Detected Not Detected LAB MICROBIOLOGY METHOD 07/27/2024 1:45 AM EDT [facility] RSV PCR Not Detected Not Detected LAB MICROBIOLOGY METHOD 07/27/2024 1:45 AM EDT [facility] Human Metapneumovirus A and B Not Detected Not Detected LAB MICROBIOLOGY METHOD 07/27/2024 1:45 AM EDT [facility] Rhinovirus/Entero virus Not Detected Not Detected LAB MICROBIOLOGY METHOD 07/27/2024 1:45 AM EDT [facility] Bordetella pertussis Not Detected Not Detected LAB MICROBIOLOGY METHOD 07/27/2024 1:45 AM EDT [facility] Bordetella parapertussis Not Detected Not Detected LAB MICROBIOLOGY METHOD 07/27/2024 1:45 AM EDT [facility] Mycoplasma pneumo by PCR Not Detected Not Detected LAB MICROBIOLOGY METHOD 07/27/2024 1:45 AM EDT [facility] Chlamydia pneumoniae Not Detected Not Detected LAB MICROBIOLOGY METHOD 07/27/2024 1:45 AM EDT [facility] SARS COV-2 Not Detected Not Detected LAB MICROBIOLOGY METHOD 07/27/2024 1:45 AM EDT [facility] Swab Both anterior nares / Unknown Non-blood Collection / Unknown 07/27/2024 12:19 AM EDT 07/27/2024 12:42 AM EDT [facility] - 07/27/2024 1:45 AM EDT Testing was performed using the [employer] Respiratory Pathogen PCR Assay. All results must [...] that are below the limit of detection. Manuela Sorto MD LAB MICROBIOLOGY - GENER AL ORDERABLES Final Result Performing Organization Address [facility]/ZIP Co de Phone Number [facility] [address] [place] [address], * (ABNORMAL) Troponin I high sensitivity (06/14/2024 5:07 AM EDT) Only the most recent of3 resultswithin the time period is included. [facility] High Sensitivity Troponin I 465(HH) <=79 ng/L LAB CHEMISTRY METHOD 06/14/2024 6:14 AM EDT [facility] Blood Venous blood specimen / Unknown Venipuncture / Unknown 06/14/2024 5:07 AM EDT 06/14/2024 5:18 AM EDT Narrative [facility] - 06/14/2024 6:14 AM EDT High levels of biotin in samples may falsely decrease hsTroponin values. Use caution when interpreting hsTroponin results in patients taking biotin who exhibit renal impairment (eGFR <60) or in patients taking more than 20 mg/day of biotin. Gogo [facility] LAB BLOOD ORDERABLES Final Resu lt Performing Organization Address [facility]/ZIP Co de Phone Number [facility] [address] [place] [address], * Thyroxine free (06/14/2024 5:07 AM EDT) [facility] Free T4 1.41 0.70 - 1.80 ng/dL LAB CHEMISTRY METHOD [facility] Venous blood specimen / Unknown Venipuncture / Unknown 06/14/2024 5:07 AM EDT 06/14/2024 5:18 AM EDT Mario BARNHART LAB BLOOD ORDERABLES Marjan l Result Performing Organization Address City/[facility]/ZIP Co de Phone Number [facility] [address] [place] [address], [place] [phone] * Creatine kinase and CKMB (06/14/2024 5:07 AM EDT) [facility] Total CK 66 22 - 269 unit/L LAB CHEMISTRY METHOD 06/14/2024 8:41 AM EDT [facility] CK-MB 2.4 1.0 - 3.6 ng/mL LAB CHEMISTRY METHOD 06/14/2024 8:41 AM EDT [facility] CK-MB Index 0.0 0.0 - 5.0 LAB CHEMISTRY METHOD 06/14/2024 8:41 AM EDT [facility] Blood Venous blood specimen / Unknown Venipuncture / Unknown 06/14/2024 5:07 AM EDT 06/14/2024 5:18 AM EDT Mario Ashby [place] LAB BLOOD ORDERABLES Marjan l Result Performing Organization Address City/[facility]/ZIP Co de Phone Number [facility] [address] [place] [address], [place] [phone] * (ABNORMAL) Urinalysis with reflex microscopic (06/13/2024 11:08 PM EDT) [facility] Specific [place] Urine 1.014 1.003 - 1.030 LAB URINALYSIS - AUTOMATED METHOD 06/13/2024 11:30 PM EDT [facility] pH, Urine 6.0 5.0 - 8.0 pH LAB URINALYSIS - AUTOMATED METHOD 06/13/2024 11:30 PM [facility] Leukocytes, Urine Large(A) Negative LAB URINALYSIS - AUTOMATED METHOD 06/13/2024 11:30 PM [facility] Nitrite, Urine Negative Negative LAB URINALYSIS - AUTOMATED METHOD 06/13/2024 11:30 PM [facility] Protein, Urine 100(A) <=Trace mg/dL LAB URINALYSIS - AUTOMATED METHOD 06/13/2024 11:30 PM [facility] Glucose, Urine 250(A) Negative mg/dL LAB URINALYSIS - AUTOMATED METHOD 06/13/2024 11:30 PM [facility] Ketones, Urine Negative Negative mg/dL LAB URINALYSIS - AUTOMATED METHOD 06/13/2024 11:30 PM [facility] Urobilinogen , Urine 0.2 0.2 - 1.0 mg/dL LAB URINALYSIS - AUTOMATED METHOD 06/13/2024 11:30 PM [facility] Bilirubin, Urine Negative Negative LAB URINALYSIS - AUTOMATED METHOD 06/13/2024 11:30 PM [facility] Blood, Urine Moderate(A) Negative LAB URINALYSIS - AUTOMATED METHOD 06/13/2024 11:30 PM [facility] RBC, Urine 33.2(H) 0 - 4 /HPF LAB URINALYSIS - AUTOMATED METHOD 06/13/2024 11:30 PM [facility] WBC, Urine 1,412.2(H) 0 - 4 /HPF LAB URINALYSIS - AUTOMATED METHOD 06/13/2024 11:30 PM [facility] Squamous Epithelial, Urine 72(H) 0 - 60 /LPF LAB URINALYSIS - AUTOMATED METHOD 06/13/2024 11:30 PM [facility] Bacteria, Urine Many(A) Negative /HPF LAB URINALYSIS - AUTOMATED METHOD 06/13/2024 11:30 PM EDT [facility] Hyaline Casts, Urine 1.5 0 - 3 /LPF LAB URINALYSIS - AUTOMATED METHOD 06/13/2024 11:30 PM EDT [facility] Urine Urine specimen obtained by clean catch procedure / Unknown Non-blood Collection / Unknown 06/13/2024 11:08 PM EDT 06/13/2024 11:21 PM EDT us Chadd Landin MD LAB URINE ORDERABLES Final Result [facility] [address] [place] [address], * [id number], RSV, Influenza A and B qualitative RT-PCR (06/13/2024 10:41 PM EDT) Influenza A PCR Not Detected Not Detected LAB MICROBIOLOGY METHOD 06/14/2024 12:03 AM EDT [facility] Influenza B PCR Not Detected Not Detected LAB MICROBIOLOGY METHOD 06/14/2024 12:03 AM EDT [facility] RSV PCR Not Detected Not Detected LAB MICROBIOLOGY METHOD 06/14/2024 12:03 AM EDT [facility] SARS COV-2 Not Detected Not Detected LAB MICROBIOLOGY METHOD 06/14/2024 12:03 AM EDT [facility] Swab Both anterior nares / Unknown Non-blood Collection / Unknown 06/13/2024 10:41 PM EDT 06/13/2024 11:22 PM EDT Narrative [facility] - 06/14/2024 12:03 AM EDT Disclaimer: Testing was performed using the [employer] GeneXpert Xpress SARS-CoV-2 _Flu_RSV PLUS PCR assay. The manner in which this information is used to guide patient care is the responsibility of the healthcare provider. Results should be correlated with the clinical history, epidemiological data, and other data available to the clinician evaluating the patient. Negative results do not preclude infection. This test has been authorized by the FDA under an Emergency Use Authorization (EUA). This test is only authorized for the duration of time the declaration that circumstances exist justifying the authorization of the emergency use of in vitro diagnostic tests for detection of SARS-CoV-2 virus and/or diagnosis of COVID-19 infection under section 564 (b) (1) of the Act, 21 U.S.C 360bbb-3 (b) (1), unless the authorization is terminated or revoked sooner. Reference Range: Not Detected Fact sheet for Healthcare providers can be found at https://www.fda.gov/media/987468/download. Fact sheet for Healthcare patients can be found at https://www.fda.gov/media/209599/download. Chadd Landin MD LAB MICROBIOLOGY - GENERAL ORDERABLES Final Result Performing Organization Address [facility]/ZIP Co de Phone Number [facility] [address] [place] [address], * Lipase (06/13/2024 8:37 PM EDT) Pathologist [facility] Lipase 55 13 - 75 unit/L LAB CHEMISTRY METHOD 06/13/2024 9:36 PM EDT [facility] Blood Venous blood specimen / Unknown Venipuncture / Unknown 06/13/2024 8:37 PM EDT 06/13/2024 9:08 PM EDT Chadd Landin MD LAB BLOOD ORDERABLES Final Result Performing Organization Address [facility]/ZIP Co de Phone Number [facility] [address] [place] [address], * (ABNORMAL) Comprehensive metabolic panel (06/13/2024 8:37 PM EDT) Sodium 137 133 - 145 mmol/L LAB CHEMISTRY METHOD 06/13/2024 9:36 PM EDT [facility] Potassium 3.9 3.5 - 5.5 mmol/L LAB CHEMISTRY METHOD 06/13/2024 9:36 PM [facility] Comment:Hemolysis present Chloride 107 96 - 110 mmol/L LAB CHEMISTRY METHOD 06/13/2024 9:36 PM [facility] CO2 25 21 - 32 mmol/L LAB CHEMISTRY METHOD 06/13/2024 9:36 PM [facility] Anion Gap 5 3 - 11 LAB CHEMISTRY METHOD 06/13/2024 9:36 PM [facility] Glucose 130(H) 70 - 100 mg/dL LAB CHEMISTRY METHOD 06/13/2024 9:36 PM [facility] BUN 24 5 - 25 mg/dL LAB CHEMISTRY METHOD 06/13/2024 9:36 PM [facility] Creatinine 2.41(H) 0.70 - 1.30 mg/dL LAB CHEMISTRY METHOD 06/13/2024 9:36 PM [facility] eGFR 27(L) >=60 mL/min/1. 73m2 LAB CHEMISTRY METHOD 06/13/2024 9:36 PM [facility] Comment:Calculation based on the Chronic Kidney Disease Epidemiology Collaboration (CKD-EPI) equation refit without adjustment for race. BUN/Creatinine Ratio 10.0 LAB CHEMISTRY METHOD 06/13/2024 9:36 PM [facility] Calcium 9.3 8.5 - 10.5 mg/dL LAB CHEMISTRY METHOD 06/13/2024 9:36 PM [facility] AST (SGOT) 41 10 - 42 unit/L LAB CHEMISTRY METHOD 06/13/2024 9:36 PM [facility] ALT (SGPT) 24 10 - 60 unit/L LAB CHEMISTRY METHOD 06/13/2024 9:36 PM [facility] Alkaline Phosphatase 131(H) 42 - 121 unit/L LAB CHEMISTRY METHOD 06/13/2024 9:36 PM [facility] Total Protein 8.3(H) 6.0 - 8.0 g/dL LAB CHEMISTRY METHOD 06/13/2024 9:36 PM EDT [facility] Albumin 3.0(L) 3.2 - 5.0 g/dL LAB CHEMISTRY METHOD 06/13/2024 9:36 PM EDT [facility] Total Bilirubin 1.2 0.0 - 1.4 mg/dL LAB CHEMISTRY METHOD 06/13/2024 9:36 PM EDT [facility] Blood Venous blood specimen / Unknown Venipuncture / Unknown 06/13/2024 8:37 PM EDT 06/13/2024 9:08 PM EDT Chadd Landin MD LAB BLOOD ORDERABLES Final Result [facility] [address] [place] [address], * Lipid panel (04/18/2022) Triglycerides 0 mg/dL Comment:no interpretation, a bstracted Cholesterol 0 mg/dL Comment:no interpretation, a bstracted HDL 0 mg/dL Comment:no interpretation, a bstracted LDL Cholesterol 0 mg/dL Comment:no interpretation, a bstracted Blood Venous blood specimen / Unknown Historical Provider LAB BLOOD ORDERABLES Marjan l Result from Last 3 Months or Most Recently Relevant to Health Maintenance Additional Health Concerns Infection Onset Date Last Indicated ESBL Comment:ESBL E-coli 08/13/2024 08/13/2024 Insurance [facility] Member Subscriber Plan / Payer (Ef fective 2023-Present) Name:Carlos Angulo Relation to Subscriber:Self Name:Carlos Angulo Payer ID:[id number] Group ID:[id number] Type:Not on file Address: [place] [address] [id number] Advance Directives Documents on File Type Date Recorded Patient Bridge Teacher Expl anation Health Care Decision (hx) 10/12/2022 [...] on File) Date Activated Date Inactivated Comments 08/13/2024 9:11 PM 08/17/2024 7:23 PM This is order is used when code status has not been discussed with the patient, or code status is otherwise unknown/unconfirmed To update the patient's code status, place a code status order. Do not modify or discontinue any currently active code status orders. * Full Code - Default Date Activated Date Inactivated Comments 07/27/2024 2:56 AM 07/31/2024 6:21 PM This is orde r is used when code status has not been discussed with the patient, or code status is otherwise unknown/unconfirmed To update the patient's code status, place a code status order. Do not modify or discontinue any currently active code status orders. * Full Code - Default Date Activated Date Inactivated Comments 06/13/2024 11:03 PM 06/15/2024 7:08 PM This is orde r is used when code status has not been discussed with the patient, or code status is otherwise unknown/unconfirmed To update the patient's code status, place a code status order. Do not modify or discontinue any currently active code status orders. Healthcare Agents on File Name Relationship Healthcare Agent Relationshi p Communication Tameka Angulo Spouse Health Care Agent Care Teams Glass Decorator Relationship Specialty Start Date End Date Arian Arcos MD [address] [facility] [address] [place], [place] PCP - General 10/29/22
== END 2024-09-06 15:58 | disposition home or self-care (01) ==
LOC: HO.HUSH 14:27
PROVIDERS: Visit Provider Nurse Practitioner Family
DX: Z13.9 Encounter for screening, unspecified (principal)

== ENCOUNTER 2024-09-06 14:27 | Outpatient (REF) | payer OTHER, SELFPAY | END 2024-09-06 14:28 | disposition home or self-care (01) | LOC: HO.LNP 14:27 | PROVIDERS: Visit Provider Nurse Practitioner Family | DX: N39.0 Urinary tract infection, site not specified (principal); N43.3 Hydrocele, unspecified; N40.0 Benign prostatic hyperplasia without lower urinary tract symptoms; N32.89 Other specified disorders of bladder; Z87.440 Personal history of urinary (tract) infections | CPT/HCPCS: 51798; 81003; 87086; 88112; 99202 ==

== ENCOUNTER 2024-09-19 15:17 | Outpatient (REF) | payer OTHER, SELFPAY ==
[2024-09-19 18:30] LABS: Anion Gap 13 (12-20); Blood Urea Nitrogen 22 mg/dL (9-16); Carbon Dioxide 23 mmol/L (22-29); Chloride 108 mmol/L (96-108); Estimated Glomerular Filt Rate 38; Potassium 3.5 mmol/L (3.3-5.1); Sodium 140 mmol/L (135-145)
[2024-09-19 18:50] LABS: Prostate Specific Antigen 1.19 ng/mL (<0.05-4.0)
== END 2024-09-19 15:18 | disposition home or self-care (01) ==
LOC: HO.HKASLDS 15:17
PROVIDERS: Nurse Practitioner Family; PCP Internal Medicine; Visit Provider Internal Medicine Nephrology
DX: I13.0 Hypertensive heart and chronic kidney disease with heart failure and stage 1 through stage 4 chronic kidney disease, or unspecified chronic kidney disease (principal); N18.32 Chronic kidney disease, stage 3b; I50.9 Heart failure, unspecified; N17.9 Acute kidney failure, unspecified; Z12.5 Encounter for screening for malignant neoplasm of prostate
CPT/HCPCS: 36415; 80051; 82565; 84153; 84520; 87086; 87088; 87147; 87186; 99212

== ENCOUNTER 2024-09-19 15:17 | Outpatient (AMB) | payer OTHER, SELFPAY ==
--- NOTE | 2024-09-19 15:22 | HO.NEPHOV ---
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 He has been getting UTI and was treated with antibiotics & seen Urology. He also had GLO at that time. He continues to have edema. He has poor appetite. He denies nausea, vomiting, fever, chills, diarrhea. He does not take any nonsteroidal anti-inflammatory use and is compliant with medications. His is doing the very best to help him improve out of his current clinical status. He has been having difficulty urinating ,recurrent UTI PFSH Medical History MGUS (monoclonal gammopathy of unknown significance) Iron deficiency Anemia Hyperuricemia Hypertension CKD (chronic kidney disease), stage III Surgical History History of surgery on lower extremity Social History Alcohol intake: current Comment: Occasional Patient Tobacco Use Status: Former Tobacco user Review of Systems Const All systems reviewed & are unremarkable except as noted in HPI and below Physical Exam Vital Signs: Last Vital Signs Pulse 55 09/19/24 15:27 BP 110/70 09/19/24 15:27 Pulse Ox 97 09/19/24 15:27 Oxygen Delivery Method Room Air 09/19/24 15:27 Const General: comfortable and no acute distress HEENT Head: Yes normocephalic Mouth: Normal oral and palatal mucosa present Eyes EOM: EOMs intact bilaterally Neck Neck: Yes supple Resp Auscultation: clear to auscultation bilaterally Cardio Jugular venous distension: no JVD Rate: regular rate GI Palpation (GI): Soft to palpation Auscultation: normal bowel sounds General: Yes no CVA tenderness Back/Spine/Pelvis Back: no CVA tenderness Skin General skin exam: no rashes or lesions noted Neuro General: moves all extremities Results Reviewed Nephrology Results: Hgb, (14.0-18.0) 11.5 g/dl L 07/18/24 WBC, (4.8-10.8) 5.0 X10*3/uL 07/18/24 Plt Count, (160-400) 143 X10*3/uL L Δ 07/18/24 Sodium, (135-145) 139 mmol/L 07/18/24 Potassium, (3.3-5.1) 3.5 mmol/L 07/18/24 Chloride, (96-108) 103 mmol/L 07/18/24 Carbon Dioxide, (22-29) 24 mmol/L 07/18/24 BUN, (9-16) 33 mg/dL H 07/18/24 Creatinine, (0.5-1.4) 2.23 mg/dL H 07/18/24 Calcium, (8.4-10.2) 9.3 mg/dL Δ 07/18/24 Phosphorus, (2.7-4.5) 3.0 mg/dL 07/18/24 PTH Intact, (8.7-77.1) 232.3 pg/mL H 07/18/24 Assessment & Plan Assessment & Plan (1) Hypertension: Code(s): I10 - Essential (primary) hypertension Category: Medical Qualifiers: Hypertension type: primary hypertension Qualified Code(s): I10 - Essential (primary) hypertension (2) CKD (chronic kidney disease), stage III: Code(s): N18.30 - Chronic kidney disease, stage 3 unspecified Category: Medical Qualifiers: Chronic kidney disease stage 3 subtype: stage 3b (GFR 30-44) Qualified Code(s): N18.32 - Chronic kidney disease, stage 3b (3) Acute kidney injury superimposed on chronic kidney disease: Code(s): N17.9 - Acute kidney failure, unspecified; N18.9 - Chronic kidney disease, unspecified Category: Medical Plan Carlos is known to have chronic kidney disease stage IIIB at baseline. He had multiple AKIs during his multiple prolonged hospitalizations . Recently he had GLO due to HF exacerbation as well as possible UTI. His Entresto is on hold but remains on lasix. I shall restart entresto when his GLO is improved. He can continue his iron tablets three times a day. He needs agressive physical therapy. He needs Urology follow up. All these have been discussed in extensive detail. I gave him the opportunity to ask questions which I answered to their satisfaction. Follow-up labs ordered and F/U given Orders: Orders Creatinine 2 Months I10 - Essential (primary) hypertension, N17.9 - Acute kidney failure, unspecified, N18.32 - Chronic kidney disease, stage 3b, N18.9 - Chronic kidney disease, unspecified Electrolytes 2 Months I10 - Essential (primary) hypertension, N17.9 - Acute kidney failure, unspecified, N18.32 - Chronic kidney disease, stage 3b, N18.9 - Chronic kidney disease, unspecified Complete Blood Count Auto Diff 2 Months I10 - Essential (primary) hypertension, N17.9 - Acute kidney failure, unspecified, N18.32 - Chronic kidney disease, stage 3b, N18.9 - Chronic kidney disease, unspecified Blood Urea Nitrogen 2 Months I10 - Essential (primary) hypertension, N17.9 - Acute kidney failure, unspecified, N18.32 - Chronic kidney disease, stage 3b, N18.9 - Chronic kidney disease, unspecified Calcium 2 Months I10 - Essential (primary) hypertension, N17.9 - Acute kidney failure, unspecified, N18.32 - Chronic kidney disease, stage 3b, N18.9 - Chronic kidney disease, unspecified Coding Level of Care Code Est Pt Level 4 (83510) Diagnoses Primary hypertension I10 Hypertension type: primary hypertension Stage 3b chronic kidney disease N18.32 Chronic kidney disease stage 3 subtype: stage 3b (GFR 30-44) Acute kidney injury superimposed on chronic kidney disease N17.9; N18.9
[2024-09-19 15:27] VITALS: BP 110/70; PULSE 55; O2SAT 97
--- OUTSIDE RECORDS SUMMARY | 2024-09-19 16:26 | XMS_ITS | Clinical Summary ---
Author Organization [facility] Address [address] [place] [address] Care Team Providers Care Site Coordinator Name Role Phone Gustabo Dupree MD Primary Care Provider [phone] Allergies No known active allergies Medications Medication [...] 1-dose 75+ series) 2020 Influenza Vaccine (#1) 2024 Hepatitis B Vaccines Aged Out No long er eligible based on patient's age to complete this topic RSV Ped < 20 months Aged Out No longe r eligible based on patient's age to complete this topic Care Teams Site Coordinator Relationship Specialty Start Date End Date Gustabo Dupree MD [address] [place] [address] PCP - General Hematology and Oncology 08/31/18
--- OUTSIDE RECORDS SUMMARY | 2024-09-19 16:26 | XMS_ITS | Encounter Summary ---
Author Organization [facility] Address [address] [facility] [address] [place] [address] Phone Care Team Providers Care Diesel Mechanic Helper Name Role Phone Arian Arcos MD Primary Care Provider Encounter Details Date Type Department Care Team (Late st Contact Info) Description 07/29/2022 Telephone [facility] [address] [place] [address] Kayla De La Torre Social [...] would not relay any further. Please advise. [phone] documented in this encounter Plan of Treatment Not on file documented as of this encounter Visit Diagnoses Not on filedocumented in this encounter Care Teams Diesel Mechanic Helper Relationship Specialty Start Date End Date Airan Arcos MD [address] [place] [address] PCP - General Internal Medicine 12/10/22 documented as of this encounter
== END 2024-09-19 15:59 | disposition home or self-care (01) ==
LOC: HO.HKAS 15:17
PROVIDERS: PCP Internal Medicine; Visit Provider Internal Medicine Nephrology
DX: I12.9 Hypertensive chronic kidney disease with stage 1 through stage 4 chronic kidney disease, or unspecified chronic kidney disease (principal); N18.32 Chronic kidney disease, stage 3b; N17.9 Acute kidney failure, unspecified; N18.9 Chronic kidney disease, unspecified
CPT/HCPCS: 99214